=== PATIENT | male | born 1945 | race Caucasian/White ===

== ENCOUNTER 2023-12-21 11:27 | Inpatient (IN) | payer MEDICARE, BC, SELFPAY ==
[2023-12-21] VITALS (8 sets, daily range): BP systolic 101–178; BP diastolic 42–99; BMI 35.9
--- NOTE | 2023-12-21 08:39 | ED.GENMED ---
History of Present Illness
General
Chief Complaint: Weakness
Source: patient and ambulance crew
Exam Limitations: none
Time Seen by Provider: 12/21/23 08:28
Nursing documentation reviewed up to this point in time: agreed with
History of Present Illness
History of Present Illness:
78-year-old male presents emergency department complaining of a fall, weakness and diarrhea. Symptoms ongoing for 1 to 2 days. EMS states it was a controlled fall.
Past History
Past History
ED Past Medical History: Cancer (Colon cancer 1991), HTN, Hypercholesterolemia, NIDDM, Other (Rosacea, chronic leg edema, peripheral neuropathy) and Other (cellulitis LLE)
ED Past Surgical History: Bowel resection (Colon resection 1991) and Orthopedic (Right foot)
Social History
Tobacco: Non-smoker
Alcohol: None
Drug: None
Personal:
Living: with family
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
Family History
Family History: Hypertension
Review of Systems
Review of Systems
Allergies reviewed?: Yes
All Other Systems: Not applicable
Constitutional: Reports fever
EENT: Reports no symptoms
Respiratory: Reports cough
Cardiac: Reports no symptoms
ABD/GI: Reports diarrhea
: Reports no symptoms
Musculoskeletal: Reports no symptoms
Skin: Reports no symptoms
Neurological: Reports weakness
Endocrine: Reports no symptoms
Hematologic/Lymphatic: Reports no symptoms
Psychiatric: Reports no symptoms
Phy Exam
Physical Exam
Physical Exam:
Physical Exam
General: Appears uncomfortable, fever 103, sitting in soiled diaper
Neck: supple. no meningeal signs. normal posterior pharynx
Heart: s1/s2 regular rate and rhythm, no murmur. equal radial
pulses.
HEENT: Pupils equal round reactive to light, EOMI
Lungs: no acute respiratory distress. clear bilaterally, cough
Abdomen: normal bowel sounds. not tender. no CVAT
Neuro: alert and oriented. no focal neurological deficits cranial nerves II through XII intact
Skin: no rash
Psychiatric: well kept. interactive and cooperative
Extremities: no edema. no calf tenderness. negative homans. good distal pulses
Course
Orders/Labs/Results
Orders:
Orders
12/21/23 Breakfast
Clear Liquid
At Your Request: Full Participation
12/21/23 08:35
IV Insert/Care/Rem.- Treatment PRN
0.9% Sodium Chloride 1000 ml [Nss] 1,000 ml IV BOLUS
12/21/23 08:37
CT Head W/o Iv Contrast Urgent
Comment:
Reason For Exam: fall
CR Chest Portable - 1 View Urgent
Comment:
Reason For Exam: cough, fever
Reason Study Needs to be Portable: Unable to Transport
12/21/23 08:43
Acetaminophen [Tylenol] 1,000 mg PO NOW STA
12/21/23 08:44
Acetaminophen [Tylenol] 1,000 mg .ROUTE .STK-MED ONE
12/21/23 08:47
COVID-19 Antigen Urgent
Source: Nasal Swab
Complete Blood Count/With Diff Urgent
Comprehensive Metabolic Panel Urgent
Lactic Acid Q4H
Comment: CANCEL 2nd LACTIC ACID IF 1st LACTIC ACID IS LESS THAN 2
NT-proBNP Urgent
Comment: ADD ON
Blood Culture Q30M
ESPERANZA Source: Blood/Venous
Specimen Description:
Influenza A+B Rapid Molecular Urgent
ESPERANZA Source: Nasal Swab
Specimen Description:
12/21/23 09:32
Blood Culture Q30M
ESPERANZA Source: Blood/Venous
Specimen Description:
12/21/23 09:41
Electrocardiogram (*1) Stat
Reason for Study: Tachycardia
EKG- Treatment ONCE
12/21/23 09:43
Electrocardiogram (*1) Urgent
Reason for Study: Tachycardia
12/21/23 09:48
Azithromycin 500 mg/250 ml [Zithromax Infusion] 500 mg in 250 ml IV NOW
12/21/23 09:51
CefTRIAXone [Rocephin] 1,000 mg IV NOW STA
12/21/23 10:46
C difficile Antigen & Toxins Urgent
ESPERANZA Source: Feces/Stool
Specimen Description:
Date Specimen was Collected: 12/21/23
Time Specimen was Collected: 10:44
Norovirus by PCR Urgent
ESPERANZA Source: ST
Specimen Description:
Date Specimen was Collected: 12/21/23
Time Specimen was Collected: 10:44
Stool Culture Routine
ESPERANZA Source: Feces/Stool
Specimen Description:
Date Specimen was Collected: 12/21/23
Time Specimen was Collected: 10:44
12/21/23 11:12
Legionella Culture Routine
ESPERANZA Source: Sputum
Specimen Description:
Legionella Urinary Antigen Routine
ESPERANZA Source: Urine
Specimen Description:
Strep pneumoniae Antigen Routine
ESPERANZA Source: Urine
Specimen Description:
12/21/23 11:14
Add On- LAB Routine
Tests Added?: pro-bnp
Norovirus by PCR Routine
ESPERANZA Source: Feces/Stool
Specimen Description:
12/21/23 11:15
Admit/Transfer Patient As Directed
Co-Sign Provider:
Level of Care: Inpatient admission
Assign to:: Telemetry
Physician / Group: [email or web address]/medicine
Diagnosis: severe sepsis/diarrhea
Reason for Telemetry: Arrhythmia
Date to Stop Telemetry: 12/24/23
Time to Stop Telemetry: 11:00
Reason for Hospitalization: severe sepsis/diarrhea
Expected length of stay greater than two midnights?: Yes
ELOS- Estimated Length of Stay in days: 3
I certify the patient meets the requirements for IP care: Yes
12/21/23 11:20
Code Status As Directed
Resuscitation Status: Full Code
12/21/23 11:42
Procalcitonin Routine
PCT Algorithmm Indication: Respiratory
12/21/23 13:01
Lactic Acid Q4H
Comment: CANCEL 2nd LACTIC ACID IF 1st LACTIC ACID IS LESS THAN 2
12/21/23 14:50
Troponin I Q6H
Azithromycin 500 mg/250 ml [Zithromax Infusion] 500 mg in 250 ml IV Q24H
CefTRIAXone [Rocephin] 1,000 mg IV Q24H
Insulin Aspart High Resistance [Novolog Flexpen-High Resistance] See Protocol SC AC
Lactated Ringers [Lr] 1,000 ml IV 100 mls/hr
12/21/23 14:50
Add On- LAB Routine
Tests Added?: tsh with reflex free t4
Activity As Directed
Activity Level: As Tolerated
Vital Signs As Directed
Frequency: Per unit guidelines
Ot Eval And Treat Routine
Pt Eval And Treat Routine
Activity Level: As Tolerated
DX Deep Vein Thrombosis Video Routine
12/21/23 16:00
Heparin 5,000 units SC Q8
12/21/23 17:00
Aspirin Low Dose EC [Aspir Low (Enteric Coated)] 162 mg PO DAILY@1700
12/21/23 20:50
Troponin I Q6H
12/21/23 22:00
Atorvastatin [Lipitor] 10 mg PO HS
Gabapentin [Neurontin] 300 mg PO HS
Insulin Glargine Lantus [Lantus] 40 units Subcutaneous Insulin Syringe [Syringe-Insulin] 0 unit SC HS
12/22/23 02:50
Troponin I Q6H
12/22/23 06:00
Complete Blood Count/No Diff IN AM
Comprehensive Metabolic Panel IN AM
Magnesium IN AM
12/22/23 08:00
Gabapentin [Neurontin] 200 mg PO DAILY
12/22/23 08:50
Troponin I Q6H
12/23/23 06:00
Complete Blood Count/No Diff IN AM
Comprehensive Metabolic Panel IN AM
Magnesium IN AM
12/24/23 06:00
Complete Blood Count/No Diff IN AM
Comprehensive Metabolic Panel IN AM
Magnesium IN AM
12/24/23 11:00
DC Protocol for Telemetry ONCE
12/25/23 06:00
Complete Blood Count/No Diff IN AM
Comprehensive Metabolic Panel IN AM
Magnesium IN AM
12/26/23 06:00
Complete Blood Count/No Diff IN AM
Comprehensive Metabolic Panel IN AM
Magnesium IN AM
Abnormal Lab Results
12/21/23
08:47
WBC 11.9 H 10^3/uL
(4.8-10.8)
RDW 14.6 H %
(11.5-14.5)
Abs Immat Gran (auto) 0.1 H 10^3/uL
(0-0.05)
Absolute Neuts (auto) 11.1 H 10^3/uL
(1.4-6.5)
Absolute Lymphs (auto) 0.3 L 10^3/uL
(1.2-3.4)
Neutrophils % 93.2 H %
(42.2-75.2)
Lymphocytes % 2.4 L %
(20.5-51.1)
Sodium 132 L mmol/L
(135-145)
Carbon Dioxide 19 L mmol/L
(22-30)
BUN 29 H mg/dl
(9-20)
Glucose 204 H mg/dl
(70-99)
Lactic Acid 2.3 H mmol/L
(0.7-2.0)
Total Protein 6.2 L g/dl
(6.3-8.2)
12/21/23 08:47
12/21/23 08:47
Vital Signs
Initial and Last Documented VS:
Initial Vital Signs
Temp Pulse Resp BP Pulse Ox
103 F H 132 22 173/76 91
12/21/23 08:53 12/21/23 08:53 12/21/23 08:53 12/21/23 08:53 12/21/23 08:53
Last Documented Vital Signs
Temp Pulse Resp BP Pulse Ox
98.2 F 107 31 115/61 93
12/21/23 10:51 12/21/23 13:45 12/21/23 13:45 12/21/23 12:00 12/21/23 11:00
MDM/Problems Addressed
Differential Diagnosis Includes:
Sepsis, pneumonia, norovirus, hyponatremia
MDM/Problems Addressed:
78-year-old male with pneumonia, sepsis, norovirus, hyponatremia. Admit to hospitalist.
Chronic conditions affecting care: DM
Acute Exacerbation and/or Progression of Chronic Illness: DM
*Radiology
Radiology exam reviewed: preliminary read by ED provider (Chest x-ray shows left-sided pneumonia) and radiology read reviewed (CT head no acute findings)
*Pulse Oximetry
Patient hypoxic: no
*EKG
Interpreted by ED Provider?: Yes
EKG Intrepretation Date: 12/21/23
EKG Intrepretation Time: 09:46
Interpretation: abnormal
Comparison EKG: changes noted
Heart Rate: 117
Rate: tachycardiac
Rhythm: sinus tachycardia
Callands: normal axis
Interval: normal interval
QRS Pattern: left vent hypertrophy
Ischemia: no ischemia
*Cryptanalyst Interpretation
Rate: tachycardiac
Interpretation: abnormal
Heart Rate: 119
Rhythm: sinus tachycardia
*Critical Care Note
Total Time (30-74mins, 75-104mins- exclusive of procedures): 30
comment:
Critical care statement: A total of 30 minutes of critical care time was provided for this patient. This includes management of unstable vital signs, evaluation of the patient at bedside, reviewing the patient's pertinent medical records, discussion
with consultants, review of old EKGs and review of pertinent medical records. This time with separate from time utilized to perform the aforementioned documented procedures
Patient Management
Social determinants of health affecting care: Living situation
Discussion with other providers: Hospitalist
Escalation/DeEscalation of care consider admission/obs:
Admit to hospitalist
ED Attending Note
-
Portions of this chart may have been created with voice recognition software.� Occasional wrong word or��sound alike� substitutions may have occurred due to the inherent limitations of voice recognition software.
Discharge Plan
Departure
Patient Disposition: Admit
Date of Disposition: 12/21/23
Time of Disposition: 09:52
Admit to: IMU
Presentation/result/management discussed w/ accepting MD/DO: Hospitalist
Patient with high blood pressure during this ER visit?: Yes
Condition: Fair
Discharge Problem:
Pneumonia, Diarrhea, Weakness, Sepsis, Acute hyponatremia, Norovirus
Interventions
Interventions:
*Risk Screen - Suicide Last Done: 12/21/23 08:56
*General Assessment Last Done: 12/21/23 08:54
*Neglect/Abuse Screening Last Done: 12/21/23 08:56
ED- Fall Risk Assessment Last Done: 12/21/23 09:35
*ED COVID-19 Vaccine History Last Done: 12/21/23 08:54
*Nursing Disposition Last Done: 12/21/23 15:00
ED- Cardiac Assessment Last Done: 12/21/23 09:35
ED- Neurological Assessment Last Done: 12/21/23 09:35
ED- Pulmonary Assessment Last Done: 12/21/23 09:35
ED-Skin Assessment Last Done: 12/21/23 09:36
Discharge Date and Time
Discharge Date/Time: 12/21/23 14:30
[2023-12-21] MEDS: NSS 1000 IV (08:50)
[2023-12-21] MEDS: TYLENOL 1000 MG PO (08:51)
[2023-12-21 09:01] LABS: % Basophils 0.4 % (0-2); % Immature Granulocytes 0.5 % (0-0.5); % Lymphocytes 2.4 % (20.5-51.1); % Monocytes 2.5 % (1.7-9.3); % Neutrophils 93.2 % (42.2-75.2); Absolute Basophils 0.1 10^3/uL (0-0.2); Absolute Eosinophils 0.1 10^3/uL (0-0.7); Absolute Immature Granulocytes 0.1 10^3/uL (0-0.05); Absolute Lymphocytes 0.3 10^3/uL (1.2-3.4); Absolute Monocytes 0.3 10^3/uL (0.1-0.6); Absolute Neutrophils 11.1 10^3/uL (1.4-6.5); Hematocrit 45.7 % (39.0-52.0); Hemoglobin 15.3 g/dL (13.0-18.0); Mean Corp Hgb Conc. 33.5 g/dL (33.0-37.0); Mean Corpuscular Hgb 27.2 pg (27.0-31.0); Mean Corpuscular Volume 81.2 fL (80.0-94.0); Mean Platelet Volume 9.9 fL (7.4-10.4); Nucleated Red Blood Cells % 0 % (-); Platelet Count 133 10^3/uL (130-400); Red Blood Cell Count 5.63 10^6/uL (4.70-6.10); Red Cell Dist. Width 14.6 % (11.5-14.5); White Blood Cell Count 11.9 10^3/uL (4.8-10.8)
[2023-12-21 09:12] LABS: ALT (SGPT) 37 U/L (0-50); AST (SGOT) 48 U/L (17-59); Albumin 3.5 g/dl (3.5-5.0); Alkaline Phosphatase 81 U/L (38-126); Blood Urea Nitrogen 29 mg/dl (9-20); Calcium 8.5 mg/dl (8.4-10.2); Carbon Dioxide 19 mmol/L (22-30); Chloride 105 mmol/L (98-107); Glucose 204 mg/dl (70-99); Potassium 3.6 mmol/L (3.5-5.1); Sodium 132 mmol/L (135-145); Total Bilirubin 0.7 mg/dl (0.2-1.3); Total Protein 6.2 g/dl (6.3-8.2); eGFR > 60.00
[2023-12-21 09:13] LABS: Lactic Acid 2.3 mmol/L (0.7-2.0)
[2023-12-21 09:26] LABS: COVID-19 Antigen Negative (Negative)
[2023-12-21] MEDS: ZITHROMAX INFUSION 250 IV (10:28)
[2023-12-21] MEDS: ROCEPHIN 1000 MG IV (10:28)
[2023-12-21 12:18] LABS: NT-proBNP 749 pg/ml
[2023-12-21 13:01] LABS: Procalcitonin 5.84 ng/ml (0.0-0.25)
--- NOTE | 2023-12-21 13:06 | EDRN ---
Attending hospitalist Matty Mack notified of critical value procalcitonin
[2023-12-21 13:22] LABS: Lactic Acid 1.5 mmol/L (0.7-2.0)
--- NOTE | 2023-12-21 14:14 | HPS.HSE ---
Family Physician
-
Family Physician: Mukund Giles
Chief Complaint
-
fall, weakness and diarrhea.
History of Present Illness
78-year-old male with past medical history of colon cancer, hypertension, hyperlipidemia, diabetes, rosacea, chronic lymphedema, peripheral neuropathy, bowel resection now presenting for weakness with fall which is controlled. Of note has been
having diarrhea for the last 1 to 2 days. Noted to have temperature 103. White count 11.9, sodium 132, procalcitonin 5.84, norovirus positive, SARS-CoV-2, flu negative. Head CT unremarkable for acute pathology, x-ray showing mild interstitial
edema, possible pneumonic process, possible left pleural effusion.
Medical History
Past Medical History
Past Medical History: Reports Other (Cancer (Colon cancer 1991), HTN, Hypercholesterolemia, NIDDM, Other (Rosacea, chronic leg edema, peripheral neuropathy) and Other (cellulitis LLE))
Past Surgical History: Reports Other (Bowel resection (Colon resection 1991) and Orthopedic (Right foot))
Social History
Tobacco: Non-smoker
Alcohol: None
Drug: None
Personal:
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
Family History
Family History: Not pertinent
Allergies / Home Medications
Allergies reflects when Allergies were last updated in [email or web address].
Home Medications with original date entered in [email or web address]
Allergy/Medication List:
Allergies
Allergy/AdvReac Type Severity Reaction Status Date / Time
No Known Allergies Allergy Verified 05/09/19 18:56
Home Medications
atorvastatin 10 mg tablet 10 mg PO HS High cholesterol 02/02/15
calcium carbonate (Oyster Shell Calcium 500) 500 mg PO BID@0800,1700 Supplement 02/02/15
cholecalciferol (vitamin D3) 25 mcg (1,000 unit) tablet 1,000 units PO DAILY@1200 Supplement 02/02/15
lisinopril 5 mg tablet 5 mg PO DAILY Blood pressure 02/02/15
repaglinide 2 mg tablet 2 mg PO AC Diabetes 02/02/15
gabapentin 100 mg capsule 200 mg PO DAILY Pain 05/09/19
gabapentin 300 mg capsule 300 mg PO HS Pain 05/09/19
multivitamin with folic acid 400 mcg tablet (Tab-A-Blossom) 1 tab PO DAILY Supplement 05/09/19
omega 8-blm-fst-fish oil 300 mg-1,000 mg capsule (Fish Oil) 1 ea PO QPM Supplement 05/09/19
aspirin 81 mg tablet,delayed release 162 mg PO DAILY@1700 Blood clot prevention/tx 08/11/20
dulaglutide 0.75 mg/0.5 mL subcutaneous pen injector (Trulicity) 0.3 mg SC SA@2200 Diabetes 08/11/20
magnesium chloride 71.5 mg (magnesium chloride) tablet,delayed release (Slow-Mag) 71.5 mg PO DAILY Supplement ##0 08/11/20
bisacodyl 5 mg tablet,delayed release 10 mg (2 x 5 mg) PO DAILY Gastrointestinal issue ##0 08/15/20
docusate sodium 100 mg capsule 100 mg PO BIDPRN PRN constipation 12/21/23
insulin glargine U-300 conc 300 unit/mL (1.5 mL) subcutaneous pen (Toujeo SoloStar U-300 Insulin) 80 unit SQ HS Diabetes 12/21/23
Review of Systems
-
History Source: Patient
A 12 point ROS was completed and negative except as noted: Yes
Physical Exam
Vital Signs
Vital Signs
Temp Pulse Resp BP Pulse Ox
98.2 F 107 31 115/61 93
12/21/23 10:51 12/21/23 13:45 12/21/23 13:45 12/21/23 12:00 12/21/23 11:00
Physical Exam
General: Well Developed and Well Nourished
HEENT: NormoCephalic
Respiratory: Clear
Cardiac: S1/S2 and Other (cough)
GI: Non Tender
Musculoskeletal: No Clubbing
Skin: Warm
Neuro: Awake, Alert, Oriented and AO x 3
Hematologic/Lymphatic: No Lymphadenopathy
Psych: Calm
Laboratory Results
-
12/21/23 08:47
12/21/23 08:47
Laboratory Results
Lactic Acid 1.5 mmol/L (0.7-2.0) 12/21/23 13:01
Total Bilirubin 0.7 mg/dl (0.2-1.3) 12/21/23 08:47
AST 48 U/L (17-59) 12/21/23 08:47
ALT 37 U/L (0-50) 12/21/23 08:47
Alkaline Phosphatase 81 U/L (38-126) 12/21/23 08:47
Data Reviewed
-
Diagnostic Radiology: Image Personally Visualized and interpreted and Report Reviewed by me
CT Scan: Image Personally Visualized and interpreted and Report Reviewed by me
Lab Data: Labs Reviewed by me
Impression/Plan
-
IMPRESSION:
78-year-old male with past medical history of colon cancer, hypertension, hyperlipidemia, diabetes, rosacea, chronic lymphedema, peripheral neuropathy, bowel resection now presenting for weakness with fall which is controlled. Of note has been
having diarrhea for the last 1 to 2 days. Noted to be admitted for severe sepsis most likely secondary to norovirus, possible superimposed bacterial infection
PLAN:
#Severe sepsis
� I suspect secondary to norovirus although procalcitonin elevated and bacterial infection is high probability, ?pneumonia
� Continue IV fluids
� Follow-up blood cultures
� Norovirus positive
� Follow-up stool cultures
� Follow-up Legionella, strep for completeness sake
� Continue IV antibiotics, broaden if decompensates
� Monitor respiratory status with IV fluids
� Sputum culture if possible
� Hold antihypertensives
� Monitor respiratory status, chest imaging
� N.p.o. for now
-CT Chest/A/P w/ contrast
#Hyponatremia
�monitor with resuscitation
#Diabetes
� Half dose insulin
� High sliding scale
#Hyperlipidemia
� Continue statin, aspirin
#DVT ppx
-hsq
[2023-12-21] MEDS: LR 1000 IV (15:09)
[2023-12-21 15:10] LABS: Glucose - Point of Care 150 mg/dl (70-99)
[2023-12-21] MEDS: HEPARIN 5000 UNITS SC (15:10)
[2023-12-21] MEDS: OMNIPAQUE 50 ML PO (15:11)
[2023-12-21 16:02] LABS: Troponin I 0.122 ng/ml
[2023-12-21] MEDS: NOVOLOG FLEXPEN-HIGH RESISTANCE SC ×2 (16:21→17:30)
[2023-12-21] MEDS: ASPIR LOW (ENTERIC COATED) 162 MG PO (17:29)
[2023-12-21] MEDS: MORPHINE SULFATE 2 MG IV (17:30)
[2023-12-21 17:55] LABS: Glucose - Point of Care 123 mg/dl (70-99)
[2023-12-21 18:33] LABS: TSH Reflex To Free T4 1.32 uIU/ml (0.47-4.68)
[2023-12-21 21:24] LABS: Troponin I 0.259 ng/ml
[2023-12-21] MEDS: NEURONTIN 300 MG PO (23:00)
[2023-12-21] MEDS: LIPITOR 10 MG PO (23:00)
[2023-12-21 23:03] LABS: Glucose - Point of Care 137 mg/dl (70-99)
[2023-12-21] MEDS: LANTUS 0.400000000000000022 UNITS SC (23:04)
[2023-12-22] MEDS: HEPARIN SC (01:09)
[2023-12-22] MEDS: LR 1000 IV ×3 (02:14→23:13)
[2023-12-22 02:15] LABS: Hematocrit 38.7 % (39.0-52.0); Hemoglobin 13.1 g/dL (13.0-18.0); Mean Corp Hgb Conc. 33.9 g/dL (33.0-37.0); Mean Corpuscular Hgb 27.4 pg (27.0-31.0); Mean Platelet Volume 9.9 fL (7.4-10.4); Platelet Count 144 10^3/uL (130-400); Red Blood Cell Count 4.78 10^6/uL (4.70-6.10); Red Cell Dist. Width 14.8 % (11.5-14.5); White Blood Cell Count 20.6 10^3/uL (4.8-10.8)
[2023-12-22 02:32] LABS: ALT (SGPT) 132 U/L (0-50); AST (SGOT) 152 U/L (17-59); Albumin 2.9 g/dl (3.5-5.0); Alkaline Phosphatase 63 U/L (38-126); Blood Urea Nitrogen 34 mg/dl (9-20); Calcium 7.7 mg/dl (8.4-10.2); Carbon Dioxide 23 mmol/L (22-30); Chloride 101 mmol/L (98-107); Estimated Creatinine Clearance 79 ml/min; Glucose 113 mg/dl (70-99); Magnesium 1.7 mg/dl (1.6-2.3); Potassium 3.4 mmol/L (3.5-5.1); Sodium 133 mmol/L (135-145); Total Bilirubin 0.6 mg/dl (0.2-1.3); Total Protein 5.4 g/dl (6.3-8.2); eGFR > 60.00
[2023-12-22 02:41] LABS: Troponin I 0.332 ng/ml
[2023-12-22 03:20] VITALS: BP 133/51
--- NOTE | 2023-12-22 05:46 | W.PN.UPDATE ---
Update Note
Progress Note Update
Troponins trending up 0.332 NSTEMI likely demand ischemia from illness. Cardiology consult placed. Known to [facility].
[2023-12-22 07:16] VITALS: BP 117/57
[2023-12-22 08:09] LABS: Glucose - Point of Care 114 mg/dl (70-99)
--- NOTE | 2023-12-22 08:30 | PTCARENOTE ---
pt troponin levels this am 0.375. denies chest pain and sob. no s/s of distress noted at this time. Cardio consulted.
--- NOTE | 2023-12-22 09:09 | CON.CAR ---
Addendum entered and electronically signed by Andres Tyson MD 12/22/23 11:03:
I saw and examined the patient.
The CHIEF TECHNICAL OFFICER or PA's note was reviewed and I agree with the note.
Comment: General: Well developed, well nourished in NAD.
Neck: Supple, no JVD, HJR, carotids +2 B/L, no bruits bilaterally.
Heart: Non displaced PMI, RRR, no murmurs, No S3, S4, no rubs.
Lungs: Clear to auscultation bilaterally, no wheeze, rhonchi, rubs bilaterally,
normal expiratory phase.
Abdomen: Normal bowel sounds, soft, non-tender, non-distended.
Extremities: No clubbing, cyanosis or edema bilaterally.
Neuro: Grossly nonfocal, awake, alert and oriented x3.
Andres has a history of hypertension, hyperlipidemia, diabetes, neuropathy, colon cancer status post resection. He presented with diarrhea. He was admitted with norovirus. There was no chest pain or shortness of breath. Troponin was ordered for
unclear reasons and was abnormal and cardiology is consulted
Troponin elevation likely non-[place] myocardial injury. Will check echocardiogram. Will add low-dose beta-luna given episodes of PAT on telemetry. Will consider outpatient stress testing. Of note patient is relatively sedentary at baseline..
Original Note:
Consultation
Consultation Request
Date/Time Consultation Requested: 12/22/2023 at 0540
Date/Time Consultation Performed: 12/22/2023 at 0845
Requesting Provider: Dr. Mack
Performing Provider: Dr. Tyson
Reason for Consultation: Elevated troponin
Medical History
-
History of Present Illness:
HPI: Andres is a 78 year old male with PMH of hypertension, hyperlipidemia, DM2, peripheral neuropathy, and colon cancer s/p resection who presented to [facility] for evaluation after episode of weakness and fall. He had been having diarrhea for about 2
days prior to arrival which he attributed to a seasoning he used on shrimp. He continued to feel poorly and then had episode of weakness and he fell to the ground. On arrival to ER, he was noted to be febrile with temperature of 103F. He was noted
to have leukocytosis w/ elevated procalcitonin. Head CT unremarkable, CT of chest, abdomen, and pelvis was without evidence of pneumonia, however did note a 12cm area of nondistended stomach/collapsed colon. Testing for flu and covid was negative,
however he did test positive for norovirus. He was admitted with severe sepsis and started on IVFs with IV abx for possible superimposed bacterial infection. Cardiology consulted as patient had troponin checked and returned elevated, trending
upwards to 0.332 thus far. Patient is chest pain free and EKG is without any acute ischemic changes. He was seen by cardiology once in 2018 and has not followed up since.
PMH:
Hypertension
Hyperlipidemia
DM2
Peripheral neuropathy
h/o colon cancer with prior colon resection
Past Medical History
Past Medical History: Other (In HPI)
Past Surgical History: Orthopedic and Other (Colon resection)
Social History
Tobacco: Non-Smoker
Alcohol: None
Drug: None
Personal:
Living: With Family
Employment: Retired
Family History
Family History: Cancer, Diabetes and Hypertension
Allergies / Home Medications
Allergy/AdvReac Type Severity Reaction Status Date / Time
No Known Allergies Allergy Verified 05/09/19 18:56
�Medication �Instructions �Recorded �Confirmed �Type
atorvastatin 10 mg tablet 10 mg PO HS High cholesterol 02/02/15 12/21/23 History
calcium carbonate (Oyster Shell 500 mg PO BID@0800,1700 Supplement 02/02/15 12/21/23 History
Calcium 500)
cholecalciferol (vitamin D3) 25 1,000 units PO DAILY@1200 02/02/15 12/21/23 History
mcg (1,000 unit) tablet Supplement
lisinopril 5 mg tablet 5 mg PO DAILY Blood pressure 02/02/15 12/21/23 History
repaglinide 2 mg tablet 2 mg PO AC Diabetes 02/02/15 12/21/23 History
gabapentin 100 mg capsule 200 mg PO DAILY Pain 05/09/19 12/21/23 History
gabapentin 300 mg capsule 300 mg PO HS Pain 05/09/19 12/21/23 History
multivitamin with folic acid 400 1 tab PO DAILY Supplement 05/09/19 12/21/23 History
mcg tablet (Tab-A-Blossom)
omega 7-pmf-mbt-fish oil 300 1 ea PO QPM Supplement 05/09/19 12/21/23 History
mg-1,000 mg capsule (Fish Oil)
aspirin 81 mg tablet,delayed 162 mg PO DAILY@1700 Blood clot 08/11/20 12/21/23 History
release prevention/tx
dulaglutide 0.75 mg/0.5 mL 0.3 mg SC SA@2200 Diabetes 08/11/20 12/21/23 History
subcutaneous pen injector
(Trulicity)
magnesium chloride 71.5 mg 71.5 mg PO DAILY Supplement ##0 08/11/20 12/21/23 History
(magnesium chloride)
tablet,delayed release (Slow-Mag)
bisacodyl 5 mg tablet,delayed 10 mg (2 x 5 mg) PO DAILY 08/15/20 12/21/23 Rx
release Gastrointestinal issue ##0
docusate sodium 100 mg capsule 100 mg PO BIDPRN PRN constipation 12/21/23 12/21/23 History
insulin glargine U-300 conc 300 80 unit SQ HS Diabetes 12/21/23 12/21/23 History
unit/mL (1.5 mL) subcutaneous pen
(Toujeo SoloStar U-300 Insulin)
Review of Systems
-
History Source: Patient
All other systems: Negative unless noted
Physical Exam
Vital Signs
Temp Pulse Resp BP Pulse Ox
98.1 F 77 16 117/57 98
12/22/23 07:16 12/22/23 07:16 12/22/23 07:16 12/22/23 07:16 12/22/23 07:16
Lab Results
12/22/23 02:07
12/22/23 02:07
Troponin I 0.332 ng/ml H* D 12/22/23 02:07
Spl-Y-Gxiyntvlhns Pept 749 pg/ml 12/21/23 08:47
Physical Exam
General: Well Developed, Well Nourished and No Apparent Distress
HEENT: Normocephalic and Moist Mucous Membranes
Respiratory: Non Labored Respirations
Cardiac: Irregular Rhythm
Musculoskeletal: No Clubbing, No Cyanosis and Edema
Skin: Dry
Neuro: Nonfocal/Grossly Intact
Psych: Calm
Impression / Plan
-
PCP: Dr. Giles
Technical Sme: Previously saw Dr. IVETTE Harrison in 2018
Impression:
Presented with weakness, fall
Sepsis due to norovirus
Elevated troponin
Atrial tachycardia
Elevated LFTs
Hyponatremia
Hypokalemia
Hypertension
Hyperlipidemia
DM2
Peripheral neuropathy
h/o colon cancer with prior colon resection
Echo 07/24/2018: EF 55-60%, RV appears dilated and hypokinetic, mild MR, trace AI, trace TR, mild dilation of aortic root 4.0 cm at sinus of valsalva
Echo 12/22/2023: Study pending
Plan:
-Presented with weakness, fall, and diarrhea. Admitted with sepsis due to norovirus. Continue abx, IVFs per primary service.
-Elevated troponin noted, trending upwards to 0.375. Suspect nonischemic myocardial injury in the setting of severe sepsis and atrial tachycardia. Continue to trend to peak.
-Will check echo. Echo 06/2018 with preserved EF.
-EKG reviewed and sinus tachycardia with PACs. No acute ischemic changes noted.
-On review of telemetry, patient remains in sinus tachycardia with ectopy. Also brief runs of atrial tachycardia seen. Patient asymptomatic.
-Will start low dose lopressor 12.5mg BID.
-Hypokalemia noted with K 3.4. Agree w/ supplementation. Mag 1.7 and will replete as well.
-TSH wnl.
-Consider eventual ischemic evaluation, likely as OP.
-Elevated LFTs noted. Hold lipitor for now. Will resume once LFTs improve.
-Continue aspirin.
HPI: Andres is a 78 year old male with PMH of hypertension, hyperlipidemia, DM2, peripheral neuropathy, and colon cancer s/p resection who presented to [facility] for evaluation after episode of weakness and fall. He had been having diarrhea for about 2
days prior to arrival which he attributed to a seasoning he used on shrimp. He continued to feel poorly and then had episode of weakness and he fell to the ground. On arrival to ER, he was noted to be febrile with temperature of 103F. He was noted
to have leukocytosis w/ elevated procalcitonin. Head CT unremarkable, CT of chest, abdomen, and pelvis was without evidence of pneumonia, however did note a 12cm area of nondistended stomach/collapsed colon. Testing for flu and covid was negative,
however he did test positive for norovirus. He was admitted with severe sepsis and started on IVFs with IV abx for possible superimposed bacterial infection. Cardiology consulted as patient had troponin checked and returned elevated, trending
upwards to 0.332 thus far. Patient is chest pain free and EKG is without any acute ischemic changes. He was seen by cardiology once in 2018 and has not followed up since.
Data Reviewed
-
EKG: Tracing Personally Visualized and interpreted
Radiology: Report Reviewed by me
CT Scan: Report Reviewed by me
Labs: Labs Reviewed by me
Old Records: Reviewed
[2023-12-22] MEDS: NOVOLOG FLEXPEN-HIGH RESISTANCE SC (09:15)
[2023-12-22] MEDS: HEPARIN 5000 UNITS SC ×3 (09:15→23:13)
[2023-12-22] MEDS: NEURONTIN 200 MG PO (09:15)
[2023-12-22] MEDS: DESENEX/MITRAZOL/ZEASORB 1 APPLIC TOPICAL ×2 (09:15→20:50)
[2023-12-22] MEDS: ZITHROMAX INFUSION 250 IV (09:17)
[2023-12-22 09:48] LABS: Troponin I 0.375 ng/ml
[2023-12-22] MEDS: KCL ELIXIR 40 MEQ PO (09:48)
[2023-12-22] MEDS: FLUSH (NSS) 1 FLUSH IV ×2 (10:38→10:50)
[2023-12-22] MEDS: ROCEPHIN 1000 MG IV (10:39)
[2023-12-22] MEDS: STERILE WATER FOR INJECTION 10 ML IV (10:39)
[2023-12-22] MEDS: MAGNESIUM OXIDE 500 MG PO (11:04)
[2023-12-22 11:15] VITALS: BP 155/70
--- NOTE | 2023-12-22 11:33 | PTCARENOTE ---
received verbal order from dr. zuniga to change diet from clear liq to full liq. order in place. no s/s of distress noted.
--- NOTE | 2023-12-22 11:44 | CARDSERVLU ---
Echocardiogram with [facility] completed after protocol screening completed. Allergies verified.
Patent IV site: __RT AC___
IV site flushed with 0.9% NaCl pre and post administration.
Diluted bolus method utilized to enhance visualization of ventricular gaona.
Total volume given: ___2.0_ mL
Patient tolerated all procedures well without complications.
[2023-12-22 12:11] LABS: Glucose - Point of Care 142 mg/dl (70-99)
[2023-12-22] MEDS: LOPRESSOR 12.5 MG PO ×2 (12:19→20:49)
[2023-12-22] MEDS: NOVOLOG FLEXPEN-HIGH RESISTANCE 1 UNITS SC ×2 (12:22→17:10)
--- NOTE | 2023-12-22 13:09 | CM ---
Reviewed the chart notes and spoke with the patient and his spouse at the bedside. The patient resides with his spouse in a two story home with one step to enter. The patient reports only DME is a cane. The patient reports no VN, but has been to
[facility] in the past. The patient confirmed his pharmacy of choice is the [facility]. CM continues to be available to patient/family and is monitoring medical plan for needs at discharge.
Plan: Discharge plans will depend on the patient's progress.
--- NOTE | 2023-12-22 13:36 | W.PN.HOSP.TC ---
Today's Communication/Plan
-
iv abx
f/u cultures
incentive jfef
adv to full liquid diet
Assessment / Plan
Assessment / Plan
General: Well Developed, Well Nourished and No Apparent Distress
HEENT: Normocephalic and Moist Mucous Membranes
Respiratory: Non Labored Respirations
Cardiac: Irregular Rhythm
Musculoskeletal: No Clubbing, No Cyanosis and Edema
Skin: Dry
Neuro: Nonfocal/Grossly Intact
Psych: Calm
78-year-old male with past medical history of colon cancer, hypertension, hyperlipidemia, diabetes, rosacea, chronic lymphedema, peripheral neuropathy, bowel resection now presenting for weakness with fall which is controlled. Of note has been
having diarrhea for the last 1 to 2 days. Noted to be admitted for severe sepsis most likely secondary to norovirus, possible superimposed bacterial infection
PLAN:
#Severe sepsis
� I suspect secondary to norovirus although procalcitonin elevated and bacterial infection is high probability
-no evidence of PNA on CT
-Atelectasis present
� Continue IV fluids
� Follow-up blood cultures
� Norovirus positive
� Follow-up stool cultures
� Follow-up Legionella, strep for completeness sake
� Continue IV antibiotics, broaden if decompensates
� Monitor respiratory status with IV fluids
� Hold antihypertensives
� Monitor respiratory status, chest imaging
� Adv to full liquids and monitor
#Acute v ?Chronic Hypoxia respiratory failure
-i suspect 2/2 to atelectasis as well as component of OHS/STACY
-needs PSG outpatient
#non-[place] myocardial injury
-2/2 to sepsis
-f/u echo
-possible outpatient stress test
#Hyponatremia
�monitor with resuscitation
#Hypokalemia
-monitor and replete
#Diabetes
� Half dose insulin
� High sliding scale
#Hyperlipidemia
� Continue statin, aspirin
#DVT ppx
-hsq
Anticipated Discharge: 24 - 48 hours
Subjective/Interval History
-
Date of Service: December 22, 2023
symptoms improved although diarrhea still present
Objective Data
-
Labs:
Laboratory Results
12/22/23
02:07
WBC 20.6 H
Hgb 13.1
Hct 38.7 L
Plt Count 144
Sodium 133 L
Potassium 3.4 L
Chloride 101
Carbon Dioxide 23
BUN 34 H
Creatinine 1.1
Glucose 113 H
Calcium 7.7 L
Total Bilirubin 0.6
AST 152 H
ALT 132 H
Alkaline Phosphatase 63
Vital Signs:
Vital Signs
Temp Pulse Resp BP Pulse Ox
98.0 F 77 16 155/70 96
12/22/23 11:15 12/22/23 12:19 12/22/23 11:15 12/22/23 12:19 12/22/23 11:15
I&O
12/21/23 12/22/23 12/23/23
06:59 06:59 06:59
Intake Total 480 / 480
Balance 480 / 480
Review of Systems
-
History Source: Patient
All other systems: Not reviewed unless documented
Data Reviewed
-
Diagnostic Radiology: Image personally visualized and interpreted and Report Reviewed by me
CT Scan: Image personally visualized and interpreted and Report Reviewed by me
Labs: Labs Reviewed by me
[2023-12-22 15:14] VITALS: BP 127/61
[2023-12-22 16:48] LABS: Glucose - Point of Care 107 mg/dl (70-99)
[2023-12-22 16:50] LABS: Troponin I 0.288 ng/ml
[2023-12-22] MEDS: ASPIR LOW (ENTERIC COATED) 162 MG PO (17:11)
[2023-12-22 19:41] VITALS: BP 112/45
[2023-12-22 21:25] LABS: Glucose - Point of Care 112 mg/dl (70-99)
[2023-12-22] MEDS: LANTUS 0.400000000000000022 UNITS SC (21:35)
[2023-12-22] MEDS: NEURONTIN 300 MG PO (21:36)
[2023-12-22 22:39] LABS: Troponin I 0.247 ng/ml
[2023-12-22 23:06] VITALS: BP 111/46
[2023-12-23 03:33] VITALS: BP 107/56
--- NOTE | 2023-12-23 04:32 | PTCARENOTE ---
Addendum entered by Yumiko Reeves RN 12/23/23 05:38:
Patient HR increased to 140s for a few seconds and then returned to high 40s/low 50s. Patient is still resting comfortably and reports no symptoms. [employer] notified. No new orders at this time.
Original Note:
Patient going wendy and remaining in 40s/50s for several minutes. Will go up to 60s when woken up. Patient reports no symptoms and resting/sleeping comfortably in bed. Notified [employer]. No new orders at this time.
[2023-12-23 06:55] LABS: Glucose - Point of Care 79 mg/dl (70-99)
[2023-12-23 07:25] VITALS: BP 132/61
--- NOTE | 2023-12-23 08:16 | W.PN.CARDCBS ---
Today's Communication / Plan
-
Elevated troponin may be related to nonMI troponin. Echo noted. Not clear that his drop in EF is acute and may be a chronic finding although this is unclear. Pt is recommended an ischemic eval inpt vs outpt. As he remains asymptomatic from a cardiac
standpoint, would lean toward outpt ischemic eval pending his clinical course.
Monitor EKGs and tele.
Resume ACEI at lower dose of 2.5 mg daily.
Cont ASA
Monitor wts and Is and Os closely. His dry wt is unknown. He presented with diarrhea so will hold on diuresis for now.
He has tachy wendy with bradycardia since starting Lopressor. Cont low dose lopressor for now if HR can tolerate. Hold parameters for lopressor placed.
Cont abx and supportive care of sepsis as per primary service.
Repleat lytes as needed.
Hold Lipitor with elevated LFTs. Trend elevated LFTs.
He will need outpt cardiac follow up.
Impression / Plan
-
.
PCP: Dr. Giles
Tax Economist: Previously saw Dr. IVETTE Harrison in 2018
Impression:
Presented with weakness, fall
Sepsis due to norovirus
Elevated troponin, peak 0.37
New CM with EF reduced to 40-45%
Chronic LE edema, lymphedema with possible chronic diastolic HF
Atrial tachycardia
Elevated LFTs
Hx colon cancer with prior colon resection
Hyponatremia
Hypokalemia
Hypertension
Hyperlipidemia
DM2
Peripheral neuropathy
Echo 07/24/2018: EF 55-60%, RV appears dilated and hypokinetic, mild MR, trace AI, trace TR, mild dilation of aortic root 4.0 cm at sinus of valsalva
Echo 12/22/2023: Technically difficult study. mod LVH, mild global hypokinesis with marked paradoxical septal motion. EF 40-45%, no significant valve disease,
Compared to previous echo 07/24/2018, the LVEF appears to have decreased from 55% to 40-45%
Plan:
-Presented with weakness, fall, and diarrhea. Admitted with sepsis due to norovirus. Trop peak 0.37
Elevated troponin may be related to nonMI troponin. Echo noted. Not clear that his drop in EF is acute and may be a chronic finding although this is unclear. Pt is recommended an ischemic eval inpt vs outpt. As he remains asymptomatic from a cardiac
standpoint, would lean toward outpt ischemic eval pending his clinical course.
Monitor EKGs and tele.
Resume ACEI at lower dose of 2.5 mg daily.
Cont ASA
Monitor wts and Is and Os closely. His dry wt is unknown. He presented with diarrhea so will hold on diuresis for now.
He has tachy wendy with bradycardia since starting Lopressor. Cont low dose lopressor for now if HR can tolerate. Hold parameters for lopressor placed.
Cont abx and supportive care of sepsis as per primary service.
Repleat lytes as needed.
Hold Lipitor with elevated LFTs. Trend elevated LFTs.
He will need outpt cardiac follow up.
Discussed with nursing.
HPI: Andres is a 78 year old male with PMH of hypertension, hyperlipidemia, DM2, peripheral neuropathy, and colon cancer s/p resection who presented to [facility] for evaluation after episode of weakness and fall. He had been having diarrhea for about 2
days prior to arrival which he attributed to a seasoning he used on shrimp. He continued to feel poorly and then had episode of weakness and he fell to the ground. On arrival to ER, he was noted to be febrile with temperature of 103F. He was noted
to have leukocytosis w/ elevated procalcitonin. Head CT unremarkable, CT of chest, abdomen, and pelvis was without evidence of pneumonia, however did note a 12cm area of nondistended stomach/collapsed colon. Testing for flu and covid was negative,
however he did test positive for norovirus. He was admitted with severe sepsis and started on IVFs with IV abx for possible superimposed bacterial infection. Cardiology consulted as patient had troponin checked and returned elevated, trending
upwards to 0.332 thus far. Patient is chest pain free and EKG is without any acute ischemic changes. He was seen by cardiology once in 2018 and has not followed up since.
Progress Note - Tax Economist
Subjective
Date of Service: December 23, 2023
Pt seen and examined. No complaints. No chest pain or shortness of breath.
Objective
Labs:
Labs
Hgb 13.1 g/dL (13.0-18.0) 12/22/23 02:07
Hct 38.7 % (39.0-52.0) L 12/22/23 02:07
Plt Count 144 10^3/uL (130-400) 12/22/23 02:07
Sodium 133 mmol/L (135-145) L 12/22/23 02:07
Potassium 3.4 mmol/L (3.5-5.1) L 12/22/23 02:07
BUN 34 mg/dl (9-20) H 12/22/23 02:07
Creatinine 1.1 mg/dL (0.7-1.3) 12/22/23 02:07
Glucose 113 mg/dl (70-99) H 12/22/23 02:07
Troponins
12/21/23 12/21/23 12/22/23
15:16 20:56 02:07
Troponin I 0.122 H* 0.259 H* D 0.332 H* D
12/22/23 12/22/23 12/22/23
09:13 16:15 22:08
Troponin I 0.375 H* 0.288 H* 0.247 H*
Vital Signs and I&O:
Vital Signs
Temp Pulse Resp BP Pulse Ox
97.6 F 58 18 107/56 98
12/23/23 03:33 12/23/23 03:33 12/23/23 03:33 12/23/23 03:33 12/23/23 03:33
Vital Signs
Temp Pulse Resp BP Pulse Ox
97.6 F 58 18 107/56 98
12/23/23 03:33 12/23/23 03:33 12/23/23 03:33 12/23/23 03:33 12/23/23 03:33
Intake & Output
12/21/23 12/22/23 12/23/23 12/24/23
06:59 06:59 06:59 06:59
Intake Total 480 / 480 1200 / 1200
Balance 480 / 480 1200 / 1200
Physical Exam
Physical Exam
General: No acute distress, AAOX3
Neck: Negative JVD
Heart: Regular, Negative S3 positive S1/S2, Negative S4, No murmur
Lungs: CTA b/l, negative wheezes/rales/rhonchi
Abd: Morbid obesity. Positive BS, NT/ND, neg rebound/rigidity/guarding
Ext: Negative cyanosis/clubbing. +2 b/l edema
Skin: venous stasis skin changes
Neuro: nonfocal
[2023-12-23] MEDS: NOVOLOG FLEXPEN-HIGH RESISTANCE SC (08:57)
[2023-12-23 09:06] LABS: Hematocrit 40.6 % (39.0-52.0); Hemoglobin 13.3 g/dL (13.0-18.0); Mean Corp Hgb Conc. 32.8 g/dL (33.0-37.0); Mean Corpuscular Volume 82.5 fL (80.0-94.0); Mean Platelet Volume 10.7 fL (7.4-10.4); Platelet Count 150 10^3/uL (130-400); Red Blood Cell Count 4.92 10^6/uL (4.70-6.10); Red Cell Dist. Width 14.8 % (11.5-14.5); White Blood Cell Count 14.3 10^3/uL (4.8-10.8)
[2023-12-23] MEDS: NEURONTIN 200 MG PO (09:09)
[2023-12-23] MEDS: STERILE WATER FOR INJECTION 10 ML IV (09:10)
[2023-12-23] MEDS: ROCEPHIN 1000 MG IV (09:10)
[2023-12-23] MEDS: HEPARIN 5000 UNITS SC ×3 (09:10→23:04)
[2023-12-23] MEDS: LR 1000 IV (09:11)
[2023-12-23] MEDS: DESENEX/MITRAZOL/ZEASORB 1 APPLIC TOPICAL ×2 (09:11→21:02)
[2023-12-23] MEDS: LOPRESSOR PO ×2 (09:13→21:01)
[2023-12-23] MEDS: ZESTRIL 2.5 MG PO (09:13)
[2023-12-23 09:24] LABS: ALT (SGPT) 103 U/L (0-50); AST (SGOT) 67 U/L (17-59); Albumin 2.9 g/dl (3.5-5.0); Alkaline Phosphatase 79 U/L (38-126); Blood Urea Nitrogen 24 mg/dl (9-20); Calcium 7.9 mg/dl (8.4-10.2); Carbon Dioxide 26 mmol/L (22-30); Chloride 98 mmol/L (98-107); Estimated Creatinine Clearance 109 ml/min; Glucose 90 mg/dl (70-99); Magnesium 2.4 mg/dl (1.6-2.3); Sodium 130 mmol/L (135-145); Total Bilirubin 0.6 mg/dl (0.2-1.3); Total Protein 5.4 g/dl (6.3-8.2); eGFR > 60.00
[2023-12-23] MEDS: FLUSH (NSS) 10 FLUSH IV (11:32)
[2023-12-23] MEDS: FLUSH (NSS) IV (11:33)
[2023-12-23 12:19] LABS: Glucose - Point of Care 97 mg/dl (70-99)
--- NOTE | 2023-12-23 13:23 | W.PN.HOSP.TC ---
Today's Communication/Plan
-
adv to LRD
appreciate cards recs - start back ACEI
BB
Monitor resp status with cessation of fluids
Assessment / Plan
Assessment / Plan
General: Well Developed, Well Nourished and No Apparent Distress
HEENT: Normocephalic and Moist Mucous Membranes
Respiratory: Non Labored Respirations
Cardiac: Irregular Rhythm
Musculoskeletal: No Clubbing, No Cyanosis and Edema
Skin: Dry
Neuro: Nonfocal/Grossly Intact
Psych: Calm
78-year-old male with past medical history of colon cancer, hypertension, hyperlipidemia, diabetes, rosacea, chronic lymphedema, peripheral neuropathy, bowel resection now presenting for weakness with fall which is controlled. Of note has been
having diarrhea for the last 1 to 2 days. Noted to be admitted for severe sepsis most likely secondary to norovirus, possible superimposed bacterial infection
PLAN:
#Severe sepsis
� I suspect secondary to norovirus although procalcitonin elevated and bacterial infection is high probability
-no evidence of PNA on CT
-Atelectasis present
� Stop fluids, tolerating diet
� Advance to low residue diet today
� Follow-up blood/stool cultures�no growth to date
� Norovirus positive
� DC abx and monitor - no evidence of bacterial infection at this time
� Monitor respiratory status with IV fluids
#Acute v ?Chronic Hypoxia respiratory failure
-i suspect 2/2 to atelectasis as well as component of OHS/STACY although may also be related to chf
-needs PSG outpatient
-resolved
#non-[place] myocardial injury
-2/2 to sepsis
-possible outpatient stress test
#New Onset HFrEF and HFpEF
-Mild global hypokinesis with marked paradoxical septal motion. LV
ejection fraction is 40-45%
-Cardiology consulted
-ACEI, BB
#Hyponatremia
�monitor with resuscitation
-stop fluids and monitor
#Hypokalemia
-monitor and replete
#Diabetes
� Half dose insulin
� High sliding scale
#Hyperlipidemia
� Continue statin, aspirin
Transaminitis
� Possibly secondary to acute infection
� Continue to monitor with resuscitation
#DVT ppx
-hsq
Anticipated Discharge: 24 - 48 hours
Subjective/Interval History
-
Date of Service: December 23, 2023
Feeling better, diarrhea improved
Objective Data
-
Labs:
Laboratory Results
12/23/23
08:35
WBC 14.3 H
Hgb 13.3
Hct 40.6
Plt Count 150
Sodium 130 L
Potassium 4.0
Chloride 98
Carbon Dioxide 26
BUN 24 H
Creatinine 0.8
Glucose 90
Calcium 7.9 L
Total Bilirubin 0.6
AST 67 H
ALT 103 H
Alkaline Phosphatase 79
Vital Signs:
Vital Signs
Temp Pulse Resp BP Pulse Ox
97.7 F 54 22 132/61 98
12/23/23 07:25 12/23/23 09:13 12/23/23 07:25 12/23/23 09:13 12/23/23 03:33
I&O
12/22/23 12/23/23 12/24/23
06:59 06:59 06:59
Intake Total 480 / 480 1200 / 1200
Balance 480 / 480 1200 / 1200
Review of Systems
-
History Source: Patient
All other systems: Not reviewed unless documented
Data Reviewed
-
Diagnostic Radiology: Image personally visualized and interpreted and Report Reviewed by me
CT Scan: Image personally visualized and interpreted and Report Reviewed by me
Labs: Labs Reviewed by me
[2023-12-23] MEDS: NOVOLOG FLEXPEN-HIGH RESISTANCE 1 UNITS SC ×2 (13:50→17:34)
[2023-12-23 15:07] VITALS: BP 149/61
[2023-12-23 16:54] LABS: Glucose - Point of Care 138 mg/dl (70-99)
[2023-12-23] MEDS: ASPIR LOW (ENTERIC COATED) 162 MG PO (17:34)
[2023-12-23 19:15] VITALS: BP 140/50
[2023-12-23 21:56] LABS: Glucose - Point of Care 120 mg/dl (70-99)
[2023-12-23] MEDS: LANTUS 0.400000000000000022 UNITS SC (23:04)
[2023-12-23] MEDS: NEURONTIN 300 MG PO (23:04)
[2023-12-23 23:57] VITALS: BP 146/60
[2023-12-24 03:44] VITALS: BP 115/46
[2023-12-24 05:28] VITALS: BMI 36.8
[2023-12-24 07:10] VITALS: BP 150/65
[2023-12-24 07:36] LABS: Glucose - Point of Care 63 mg/dl (70-99)
--- NOTE | 2023-12-24 08:05 | W.PN.CARDCBS ---
Today's Communication / Plan
-
Elevated troponin likely nonMI troponin, continue medical therapy. Echo showed drop in EF compared to 2018. Not clear that his drop in EF is acute and may be a chronic finding. Pt is recommended an ischemic eval as outpt once recovered from
infection.
Cont to monitor EKGs and tele.
Cont ACEI and Lopressor for CM.
Cont ASA
Cont to monitor wts and Is and Os closely. His dry wt is unknown. He presented with diarrhea and received IVF so will hold on diuresis for now.
He has tachy wendy with bradycardia since starting Lopressor. Cont low dose lopressor for now if HR can tolerate.
Check nocturnal pulse ox as he may have untreated STACY which could contribute to nocturnal bradycardia.
Cont supportive care of sepsis as per primary service.
Cont to hold Lipitor with elevated LFTs which are improving. Cont to trend elevated LFTs.
He will need outpt cardiac follow up as he has been noncompliant and loss to follow up.
Impression / Plan
-
.
PCP: Dr. Giles
Basketball Assembler: Previously saw Dr. IVETTE Harrison in 2018
Impression:
Presented with weakness, fall
Sepsis due to norovirus
Elevated troponin, peak 0.37
New CM with EF reduced to 40-45%
Chronic LE edema, lymphedema with possible chronic diastolic HF
Atrial tachycardia
Elevated LFTs
Hx colon cancer with prior colon resection
Hyponatremia
Hypokalemia
Hypertension
Hyperlipidemia
DM2
Peripheral neuropathy
Echo 07/24/2018: EF 55-60%, RV appears dilated and hypokinetic, mild MR, trace AI, trace TR, mild dilation of aortic root 4.0 cm at sinus of valsalva
Echo 12/22/2023: Technically difficult study. mod LVH, mild global hypokinesis with marked paradoxical septal motion. EF 40-45%, no significant valve disease,
Compared to previous echo 07/24/2018, the LVEF appears to have decreased from 55% to 40-45%
Plan:
-Presented with weakness, fall, and diarrhea. Admitted with sepsis due to norovirus. Trop peak 0.37
Elevated troponin likely nonMI troponin, continue medical therapy. Echo showed drop in EF compared to 2018. Not clear that his drop in EF is acute and may be a chronic finding. Pt is recommended an ischemic eval as outpt once recovered from
infection.
Cont to monitor EKGs and tele.
Cont ACEI and Lopressor for CM.
Cont ASA
Cont to monitor wts and Is and Os closely. His dry wt is unknown. He presented with diarrhea and received IVF so will hold on diuresis for now.
He has tachy wendy with bradycardia since starting Lopressor. Cont low dose lopressor for now if HR can tolerate.
Check nocturnal pulse ox as he may have untreated STACY which could contribute to nocturnal bradycardia.
Cont supportive care of sepsis as per primary service.
Cont to hold Lipitor with elevated LFTs which are improving. Cont to trend elevated LFTs.
He will need outpt cardiac follow up as he has been noncompliant and loss to follow up.
HPI: Andres is a 78 year old male with PMH of hypertension, hyperlipidemia, DM2, peripheral neuropathy, and colon cancer s/p resection who presented to [facility] for evaluation after episode of weakness and fall. He had been having diarrhea for about 2
days prior to arrival which he attributed to a seasoning he used on shrimp. He continued to feel poorly and then had episode of weakness and he fell to the ground. On arrival to ER, he was noted to be febrile with temperature of 103F. He was noted
to have leukocytosis w/ elevated procalcitonin. Head CT unremarkable, CT of chest, abdomen, and pelvis was without evidence of pneumonia, however did note a 12cm area of nondistended stomach/collapsed colon. Testing for flu and covid was negative,
however he did test positive for norovirus. He was admitted with severe sepsis and started on IVFs with IV abx for possible superimposed bacterial infection. Cardiology consulted as patient had troponin checked and returned elevated, trending
upwards to 0.332 thus far. Patient is chest pain free and EKG is without any acute ischemic changes. He was seen by cardiology once in 2018 and has not followed up since.
Progress Note - Basketball Assembler
Subjective
Date of Service: December 24, 2023
Pt seen and examined. No complaints. No chest pain or shortness of breath.
Objective
Labs:
Labs
Hgb 13.3 g/dL (13.0-18.0) 12/23/23 08:35
Hct 40.6 % (39.0-52.0) 12/23/23 08:35
Plt Count 150 10^3/uL (130-400) 12/23/23 08:35
Sodium 130 mmol/L (135-145) L 12/23/23 08:35
Potassium 4.0 mmol/L (3.5-5.1) 12/23/23 08:35
BUN 24 mg/dl (9-20) H 12/23/23 08:35
Creatinine 0.8 mg/dL (0.7-1.3) 12/23/23 08:35
Glucose 90 mg/dl (70-99) 12/23/23 08:35
Troponins
12/21/23 12/21/23 12/22/23
15:16 20:56 02:07
Troponin I 0.122 H* 0.259 H* D 0.332 H* D
12/22/23 12/22/23 12/22/23
09:13 16:15 22:08
Troponin I 0.375 H* 0.288 H* 0.247 H*
Vital Signs and I&O:
Vital Signs
Temp Pulse Resp BP Pulse Ox
97.6 F 55 16 150/65 96
12/24/23 03:44 12/24/23 07:10 12/24/23 07:10 12/24/23 07:10 12/24/23 07:10
Vital Signs
Temp Pulse Resp BP Pulse Ox
97.6 F 55 16 150/65 96
03/31/24 03:44 12/24/23 07:10 12/24/23 07:10 12/24/23 07:10 12/24/23 07:10
Intake & Output
12/22/23 12/23/23 12/24/23 12/25/23
06:59 06:59 06:59 06:59
Intake Total 480 / 480 1200 / 1200 380 / 380
Balance 480 / 480 1200 / 1200 380 / 380
Physical Exam
Physical Exam
General: No acute distress, AAOX3
Neck: Negative JVD
Heart: Regular, Negative S3 positive S1/S2, Negative S4, No murmur
Lungs: CTA b/l, negative wheezes/rales/rhonchi
Abd: Morbid obesity. Positive BS, NT/ND, neg rebound/rigidity/guarding
Ext: Negative cyanosis/clubbing. +2 b/l edema
Skin: venous stasis skin changes
Neuro: nonfocal
[2023-12-24 08:12] LABS: Glucose - Point of Care 82 mg/dl (70-99)
--- NOTE | 2023-12-24 08:19 | PTCARENOTE ---
pt with AM sugar of 63, asymptomatic and given juice. pt ate breakfast and rechecked for a sugar of 82. will recheck per protocol and give report for night shift manager to follow up with 0300 sugar as well. pt oob to chair and verbalizes no discomfort at
this time.
[2023-12-24] MEDS: NOVOLOG FLEXPEN-HIGH RESISTANCE SC ×2 (08:21→11:52)
[2023-12-24] MEDS: ZESTRIL 2.5 MG PO (08:59)
[2023-12-24] MEDS: LOPRESSOR 12.5 MG PO (08:59)
[2023-12-24] MEDS: HEPARIN 5000 UNITS SC (09:00)
[2023-12-24] MEDS: NEURONTIN 200 MG PO (09:00)
[2023-12-24] MEDS: FLUSH (NSS) IV ×2 (09:01→09:06)
[2023-12-24] MEDS: DESENEX/MITRAZOL/ZEASORB 1 APPLIC TOPICAL (09:03)
[2023-12-24 09:17] LABS: Hematocrit 39.6 % (39.0-52.0); Hemoglobin 13.3 g/dL (13.0-18.0); Mean Corp Hgb Conc. 33.6 g/dL (33.0-37.0); Mean Corpuscular Hgb 27.1 pg (27.0-31.0); Mean Corpuscular Volume 80.8 fL (80.0-94.0); Mean Platelet Volume 11.1 fL (7.4-10.4); Platelet Count 179 10^3/uL (130-400); Red Cell Dist. Width 14.6 % (11.5-14.5); White Blood Cell Count 9.7 10^3/uL (4.8-10.8)
[2023-12-24 11:35] VITALS: BP 126/56
[2023-12-24 11:52] LABS: Glucose - Point of Care 128 mg/dl (70-99)
--- NOTE | 2023-12-24 11:52 | W.PN.HOSP.TC ---
Addendum entered and electronically signed by Matty Mack MD 12/25/23 15:45:
[id number]
Original Note:
Today's Communication/Plan
-
Follow-up BMP, LFT, CBC outpatient
Low-dose beta-luna, reduce lisinopril to 2.5 mg daily
Sleep study outpatient
Follow-up pulmonary, PCP, cardiology outpatient
Assessment / Plan
Assessment / Plan
General: Well Developed, Well Nourished and No Apparent Distress
HEENT: Normocephalic and Moist Mucous Membranes
Respiratory: Non Labored Respirations
Cardiac: Irregular Rhythm
Musculoskeletal: No Clubbing, No Cyanosis and Edema
Skin: Dry
Neuro: Nonfocal/Grossly Intact
Psych: Calm
78-year-old male with past medical history of colon cancer, hypertension, hyperlipidemia, diabetes, rosacea, chronic lymphedema, peripheral neuropathy, bowel resection now presenting for weakness with fall which is controlled. Of note has been
having diarrhea for the last 1 to 2 days. Noted to be admitted for severe sepsis most likely secondary to norovirus, possible superimposed bacterial infection
PLAN:
#Severe sepsis
� I suspect secondary to norovirus
-no evidence of PNA on CT
-Atelectasis present
� Stop fluids, tolerating diet
� Advance to low residue diet -tolerating well
� Follow-up blood/stool cultures�no growth to date
� Norovirus positive
� DC abx and monitor - no evidence of bacterial infection at this time
� Monitor respiratory status with IV fluids
#Acute hypoxic respiratory failure
-i suspect 2/2 to atelectasis as well as component of OHS/STACY although may also be related to chf
-needs PSG outpatient
-resolved
#non-LA myocardial injury
-2/2 to sepsis
-possible outpatient stress test
� Cardiology follow-up outpatient
#New Onset HFrEF and HFpEF
-Mild global hypokinesis with marked paradoxical septal motion. LV
ejection fraction is 40-45%
-Cardiology consulted
-ACEI, BB
� Cardiology set up outpatient follow-up
#Tachybradycardia syndrome
� Follow-up outpatient
� On low-dose beta-luna
#Hyponatremia
�monitor with resuscitation
-stop fluids and monitor
� Follow-up BMP outpatient
#Hypokalemia
-monitor and replete
#Diabetes
�Improvement in diet today
�Low fingersticks mostly secondary to poor p.o. intake as well as diarrhea, adjusted by half dose insulin dosing
� As per patient, has been taking insulin regimen as prescribed as outpatient with fingersticks in the morning in the 120s and acknowledges having much higher diet prior to this episode. Patient also is eating much more currently and feels like he
will go back to eating normally. Fingersticks have been within normal limits with hemoglobin A1c 6.6 on current outpatient regimen. Can resume.
#Hyperlipidemia
� Continue statin, aspirin
�Follow-up LFTs outpatient
Transaminitis
� Possibly secondary to acute infection
� Continue to monitor with resuscitation
�Follow-up LFTs outpatient
#DVT ppx
-hsq
More than 30 minutes spent in discharge including
Final examination of the patient
Summarizing hospital stay
Instructions for continuing care to all relevant caregivers
Preparation of discharge records, prescriptions, and referral forms
Total time spent (35 in minutes):
Anticipated Discharge: Today
Subjective/Interval History
-
Date of Service: December 24, 2023
Diet being tolerated, diarrhea much improved
Objective Data
-
Labs:
Laboratory Results
12/24/23 12/24/23 12/24/23
08:03 08:50 11:43
WBC Cancelled 9.7
Hgb Cancelled 13.3
Hct Cancelled 39.6
Plt Count Cancelled 179
Sodium Cancelled Pending
Potassium Cancelled Pending
Chloride Cancelled Pending
Carbon Dioxide Cancelled Pending
BUN Cancelled Pending
Creatinine Cancelled Pending
Glucose Cancelled Pending
Calcium Cancelled Pending
Total Bilirubin Cancelled Pending
AST Cancelled Pending
ALT Cancelled Pending
Alkaline Phosphatase Cancelled Pending
Vital Signs:
Vital Signs
Temp Pulse Resp BP Pulse Ox
97.6 F 55 16 150/65 96
12/24/23 03:44 12/24/23 07:10 12/24/23 07:10 12/24/23 08:59 12/24/23 10:26
I&O
12/23/23 12/24/23 12/25/23
06:59 06:59 06:59
Intake Total 1200 / 1200 380 / 380
Balance 1200 / 1200 380 / 380
Review of Systems
-
History Source: Patient
All other systems: Not reviewed unless documented
Data Reviewed
-
Diagnostic Radiology: Image personally visualized and interpreted and Report Reviewed by me
CT Scan: Image personally visualized and interpreted and Report Reviewed by me
Labs: Labs Reviewed by me
--- NOTE | 2023-12-24 11:56 | W.DS.TRANS ---
DC Summary - Scale Clerk
-
Discharge Instructions:
Discharge Diagnosis/Procedures Severe sepsis - 2/2 to norovirus
Acute Hypoxic respiratory failure
New CM with EF reduced to 40-45%
tachy wendy
Diet Low Fat,Low Cholesterol,Restrict fluids to 48 oz
,Diabetic, Carb Controlled
Activity As tolerated
Blood Work bmp, lfts, cbc in 1 week with pcp
Instructions:
Stand-Alone Forms:
Changes to Home Medications: Yes
Discharge Medications:
DC Medications w/original date entered in [employer]
atorvastatin 10 mg tablet 10 mg PO HS High cholesterol 02/02/15
calcium carbonate (Oyster Shell Calcium 500) 500 mg PO BID@0800,1700 Supplement 02/02/15
cholecalciferol (vitamin D3) 25 mcg (1,000 unit) tablet 1,000 units PO DAILY@1200 Supplement 02/02/15
repaglinide 2 mg tablet 2 mg PO AC Diabetes 02/02/15
gabapentin 100 mg capsule 200 mg PO DAILY Pain 05/09/19
gabapentin 300 mg capsule 300 mg PO HS Pain 05/09/19
multivitamin with folic acid 400 mcg tablet (Tab-A-Blossom) 1 tab PO DAILY Supplement 05/09/19
omega 5-sjx-ukf-fish oil 300 mg-1,000 mg capsule (Fish Oil) 1 ea PO QPM Supplement 05/09/19
aspirin 81 mg tablet,delayed release 162 mg PO DAILY@1700 Blood clot prevention/tx 08/11/20
dulaglutide 0.75 mg/0.5 mL subcutaneous pen injector (Trulicity) 0.3 mg SC SA@2200 Diabetes 08/11/20
magnesium chloride 71.5 mg (magnesium chloride) tablet,delayed release (Slow-Mag) 71.5 mg PO DAILY Supplement ##0 08/11/20
bisacodyl 5 mg tablet,delayed release 10 mg (2 x 5 mg) PO DAILY Gastrointestinal issue ##0 08/15/20
docusate sodium 100 mg capsule 100 mg PO BIDPRN PRN constipation 12/21/23
insulin glargine U-300 conc 300 unit/mL (1.5 mL) subcutaneous pen (T[employer]o SoloStar U-300 Insulin) 80 unit SQ HS Diabetes 12/21/23
lisinopril 2.5 mg tablet 2.5 mg PO DAILY 30 days #30 tabs 12/24/23
metoprolol tartrate 25 mg tablet 12.5 mg (1/2 x 25 mg) PO BID 30 days #30 tabs 12/24/23
miconazole nitrate 2 % topical powder (Miconazorb AF) 1 applic topical BID #85 grams 12/24/23
Home Medication Changes
lisinopril 2.5 mg tablet 2.5 mg PO DAILY 30 days #30 tabs 12/24/23
metoprolol tartrate 25 mg tablet 12.5 mg (1/2 x 25 mg) PO BID 30 days #30 tabs 12/24/23
miconazole nitrate 2 % topical powder (Miconazorb AF) 1 applic topical BID #85 grams 12/24/23
Pending Results: No
[2023-12-24 12:24] LABS: ALT (SGPT) 83 U/L (0-50); AST (SGOT) 48 U/L (17-59); Albumin 3.1 g/dl (3.5-5.0); Alkaline Phosphatase 94 U/L (38-126); Blood Urea Nitrogen 19 mg/dl (9-20); Calcium 8.3 mg/dl (8.4-10.2); Carbon Dioxide 27 mmol/L (22-30); Chloride 100 mmol/L (98-107); Estimated Creatinine Clearance > 125 ml/min; Glucose 134 mg/dl (70-99); Sodium 133 mmol/L (135-145); Total Bilirubin 0.5 mg/dl (0.2-1.3); Total Protein 5.5 g/dl (6.3-8.2); eGFR > 60.00
--- NOTE | 2023-12-24 14:05 | CM ---
Patient has been medically cleared for discharge to home with no additional skilled services. transported home.
== END 2023-12-24 13:55 | disposition home or self-care (01) | DRG 872 ==
LOC: 2 NORTH 11:27
PROVIDERS: Physician Assistant; ADMITTING PHYSICIAN Internal Medicine; EMERGENCY PHYSICIAN Emergency Medicine; FAMILY PHYSICIAN Internal Medicine; OTHER PHYSICIAN Internal Medicine Cardiovascular Disease
DX: A41.89 Other specified sepsis (principal); E87.1 Hypo-osmolality and hyponatremia; I50.40 Unspecified combined systolic (congestive) and diastolic (congestive) heart failure; I5A Non-ischemic myocardial injury (non-traumatic); I42.9 Cardiomyopathy, unspecified; A08.11 Acute gastroenteropathy due to Norwalk agent; R65.20 Severe sepsis without septic shock; Z79.82 Long term (current) use of aspirin; E87.6 Hypokalemia; I11.0 Hypertensive heart disease with heart failure; E11.42 Type 2 diabetes mellitus with diabetic polyneuropathy; E78.00 Pure hypercholesterolemia, unspecified; Z11.52 Encounter for screening for COVID-19
CPT/HCPCS: 70450; 71045; 71260; 74177; 80053; 82962; 83605; 83735; 83880; 84145; 84443; 84484; 85025; 85027; 87040; 87045; 87046; 87324; 87427; 87449; 87502; 87798; 87811; 87899; 93005; 93306; 96361; 96365; 96375; 97162; 97165; 99291; Q9950; Q9967

== ENCOUNTER → 2024-01-05 07:30 | Outpatient (REF) | payer MEDICARE, BC, SELFPAY ==
[2024-01-05 10:48] LABS: ALT (SGPT) 34 U/L (0-50); AST (SGOT) 31 U/L (17-59); Albumin 3.4 g/dl (3.5-5.0); Alkaline Phosphatase 96 U/L (38-126); Direct Bilirubin 0.4 mg/dl (0.0-0.4); Glucose 134 mg/dl (70-99); HDL Cholesterol 49 mg/dl; LDL Cholesterol, Calculated 46 mg/dl; Total Bilirubin 0.9 mg/dl (0.2-1.3); Total Cholesterol 112 mg/dl (50-199); Triglyceride 86 mg/dl (10-149); Very Low Density Lipoprotein 17 mg/dl (0-30)
[2024-01-05 12:20] LABS: Glycohemoglobin (HgbA1c) 6.9 % (4.0-5.6)
== END ==
LOC: HWLAB 07:30
PROVIDERS: ATTENDING PHYSICIAN Internal Medicine
DX: E11.40 Type 2 diabetes mellitus with diabetic neuropathy, unspecified (principal); Z79.4 Long term (current) use of insulin; E78.2 Mixed hyperlipidemia; I10 Essential (primary) hypertension; E66.9 Obesity, unspecified
CPT/HCPCS: 36415; 80061; 80076; 82947; 83036

== ENCOUNTER → 2024-01-23 09:59 | Outpatient (REF) | payer MEDICARE, BC, SELFPAY ==
[2024-01-23 12:10] LABS: Blood Urea Nitrogen 26 mg/dl (9-20); Calcium 9.5 mg/dl (8.4-10.2); Carbon Dioxide 31 mmol/L (22-30); Chloride 99 mmol/L (98-107); Glucose 146 mg/dl (70-99); Potassium 4.8 mmol/L (3.5-5.1); Sodium 135 mmol/L (135-145); eGFR > 60.00
== END ==
LOC: HWLAB 09:59
PROVIDERS: ATTENDING PHYSICIAN Physician Assistant Medical; FAMILY PHYSICIAN Internal Medicine
DX: I42.9 Cardiomyopathy, unspecified (principal)
CPT/HCPCS: 36415; 80048

== ENCOUNTER 2024-02-29 19:00 | Emergency (ER) | payer MEDICARE, BC, SELFPAY ==
[2024-02-29 19:32] VITALS: BP 155/67
--- NOTE | 2024-02-29 20:50 | ED.GENMED ---
History of Present Illness
General
Chief Complaint: Ear Problem
Time Seen by Provider: 02/29/24 20:36
Travel History
Have you had any contact with someone who has COVID-19?: No
Do you have any symptoms of coronavirus? Fever > 100 degrees, chills, cough, shortness of breath, sore throat, loss of taste or smell, muscle aches, or headache?: No
History of Present Illness
History of Present Illness:
Patient presents to the emergency department with left-sided hearing loss and pain in the left ear after using a Q-tip. Notes that he thought he had wax buildup and to put a Q-tip in his ear. When he pulled it out he noticed blood in his hearing
was diminished in that ear. Notes that he occasionally gets buildup of wax and does see an ENT for this.
Past History
Past History
ED Past Medical History: Cancer (Colon cancer 1991), HTN, Hypercholesterolemia, NIDDM, Other (Rosacea, chronic leg edema, peripheral neuropathy) and Other (cellulitis LLE)
ED Past Surgical History: Bowel resection (Colon resection 1991) and Orthopedic (Right foot)
Social History
Tobacco: Non-smoker
Alcohol: None
Drug: None
Personal:
Living: with family
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
Family History
Family History: Hypertension
Phy Exam
Physical Exam
Physical Exam:
General: No acute distress
Head: NCAT
Ears: mild cerumen in R ear, normal TM, L ear with blood in canal, appears to be coming from small anterior perforation
Neck, Normal in appearance, no swelling
Respiratory: No Respiratory distress
Abdomen: No distension
Ext: no edema
Neuro: ANDREW, AOx4
Psych: Normal affect
Skin: Normal color
Course
Vital Signs
Initial and Last Documented VS:
Initial Vital Signs
Temp Pulse Resp BP Pulse Ox
98.7 F 73 18 155/67 99
02/29/24 19:32 02/29/24 19:32 02/29/24 19:32 02/29/24 19:32 02/29/24 19:32
Last Documented Vital Signs
Temp Pulse Resp BP Pulse Ox
98.7 F 73 18 155/67 99
02/29/24 19:32 02/29/24 19:32 02/29/24 19:32 02/29/24 19:32 02/29/24 19:32
*Critical Care Note
Total Time (30-74mins, 75-104mins- exclusive of procedures): Not Applicable
ED Attending Note
ED Attending Note
ED Attending Note:
isolated small perforation
will dc with ofloxacin drops
instructed to follow up with his ENT in the next week
-
Portions of this chart may have been created with voice recognition software.� Occasional wrong word or��sound alike� substitutions may have occurred due to the inherent limitations of voice recognition software.
Discharge Plan
Departure
Patient Disposition: Home (Routine Discharge)
Date of Disposition: 02/29/24
Time of Disposition: 20:52
Patient with high blood pressure during this ER visit?: Yes
Discharge Problem:
Perforation of tympanic membrane
Instructions: Ruptured eardrum
Prescriptions:
New
ofloxacin 0.3 % drops
5 drp otic (ear) BID 14 Days Qty: 5 0RF
No Action
repaglinide 2 MG tablet
2 mg PO AC
atorvastatin 10 MG tablet
10 mg PO HS
calcium carbonate [Oyster Shell Calcium 500] 500 MG tablet
500 mg PO BID@0800,1700
cholecalciferol (vitamin D3) 1,000 UNITS tablet
1,000 units PO DAILY@1200
gabapentin 300 MG capsule
300 mg PO HS
gabapentin 100 MG capsule
200 mg PO DAILY
omega 8-txz-bws-fish oil [Fish Oil] 1 EACH capsule
1 ea PO QPM
multivitamin with folic acid [Tab-A-Blossom] 1 TABLET tablet
1 tab PO DAILY
aspirin 81 MG tablet,delayed release (DR/EC)
162 mg PO DAILY@1700
Slow-Mag 71.5 mg Tablet,Delayed Release (Dr/Ec)
71.5 mg PO DAILY Qty: 0
Trulicity 0.75 MG/0.5 ML pen injector
0.3 mg SC SA@2200
bisacodyl 5 MG tablet,delayed release (DR/EC)
10 mg PO DAILY Qty: 0 0RF
docusate sodium 100 MG capsule
100 mg PO BIDPRN PRN (Reason: constipation)
insulin glargine U-300 conc [T[employer]jeo SoloStar U-300 Insulin] 300 UNIT/ML insulin pen
80 unit SQ HS
miconazole nitrate [Miconazorb AF] 2 % Powder
1 applic topical BID Qty: 85 0RF
lisinopril 2.5 mg Tablet
2.5 mg PO DAILY 30 Days Qty: 30 0RF
metoprolol tartrate 25 mg Tablet
12.5 mg PO BID 30 Days Qty: 30 0RF
Interventions
Interventions:
*General Assessment Last Done: 02/29/24 19:32
*Nursing Disposition Last Done: 02/29/24 21:05
Discharge Date and Time
Discharge Date/Time: 02/29/24 21:05
Print Language: TRISTANIAN
== END 2024-02-29 21:05 | disposition home or self-care (01) ==
LOC: EMR 19:00
PROVIDERS: EMERGENCY PHYSICIAN Emergency Medicine; FAMILY PHYSICIAN Internal Medicine
DX: S09.22XA Traumatic rupture of left ear drum, initial encounter (principal); X58.XXXA Exposure to other specified factors, initial encounter; I10 Essential (primary) hypertension; E78.00 Pure hypercholesterolemia, unspecified; E11.42 Type 2 diabetes mellitus with diabetic polyneuropathy; L71.9 Rosacea, unspecified; Z85.038 Personal history of other malignant neoplasm of large intestine; Z98.0 Intestinal bypass and anastomosis status; Z79.82 Long term (current) use of aspirin
CPT/HCPCS: 99283

== ENCOUNTER → 2024-04-18 07:45 | Outpatient (REF) | payer MEDICARE, BC, SELFPAY ==
[2024-04-18 11:22] LABS: Glycohemoglobin (HgbA1c) 6.9 % (4.0-5.6)
[2024-04-18 11:44] LABS: ALT (SGPT) 33 U/L (0-50); AST (SGOT) 35 U/L (17-59); Albumin 4.1 g/dl (3.5-5.0); Alkaline Phosphatase 92 U/L (38-126); Direct Bilirubin 0.2 mg/dl (0.0-0.4); Glucose 99 mg/dl (70-99); HDL Cholesterol 60 mg/dl; LDL Cholesterol, Calculated 76 mg/dl; Total Bilirubin 0.5 mg/dl (0.2-1.3); Total Cholesterol 160 mg/dl (50-199); Total Protein 6.8 g/dl (6.3-8.2); Triglyceride 120 mg/dl (10-149); Very Low Density Lipoprotein 24 mg/dl (0-30)
== END ==
LOC: HWLAB 07:45
PROVIDERS: ATTENDING PHYSICIAN Internal Medicine
DX: E11.51 Type 2 diabetes mellitus with diabetic peripheral angiopathy without gangrene (principal); Z00.00 Encounter for general adult medical examination without abnormal findings
CPT/HCPCS: 36415; 80061; 80076; 82947; 83036

== ENCOUNTER → 2024-08-21 08:31 | Outpatient (REF) | payer MEDICARE, BC, SELFPAY ==
[2024-08-21 11:33] LABS: % Basophils 0.9 % (0-2); % Eosinophils 2.1 % (0-6); % Immature Granulocytes 0.5 % (0-0.5); % Lymphocytes 15.9 % (20.5-51.1); % Monocytes 8.8 % (1.7-9.3); % Neutrophils 71.8 % (42.2-75.2); Absolute Basophils 0.1 10^3/uL (0-0.2); Absolute Eosinophils 0.2 10^3/uL (0-0.7); Absolute Lymphocytes 1.4 10^3/uL (1.2-3.4); Absolute Monocytes 0.8 10^3/uL (0.1-0.6); Absolute Neutrophils 6.1 10^3/uL (1.4-6.5); Hematocrit 48.1 % (39.0-52.0); Hemoglobin 15.8 g/dL (13.0-18.0); Mean Corp Hgb Conc. 32.8 g/dL (33.0-37.0); Mean Corpuscular Hgb 28.1 pg (27.0-31.0); Mean Corpuscular Volume 85.6 fL (80.0-94.0); Mean Platelet Volume 10.4 fL (7.4-10.4); Nucleated Red Blood Cells % 0 % (-); Platelet Count 202 10^3/uL (130-400); Red Blood Cell Count 5.62 10^6/uL (4.70-6.10); Red Cell Dist. Width 14.1 % (11.5-14.5); White Blood Cell Count 8.5 10^3/uL (4.8-10.8)
[2024-08-21 11:56] LABS: ALT (SGPT) 36 U/L (0-50); AST (SGOT) 34 U/L (17-59); Albumin 4.3 g/dl (3.5-5.0); Alkaline Phosphatase 78 U/L (38-126); Blood Urea Nitrogen 24 mg/dl (9-20); Calcium 9.7 mg/dl (8.4-10.2); Carbon Dioxide 34 mmol/L (22-30); Chloride 96 mmol/L (98-107); Glucose 117 mg/dl (70-99); HDL Cholesterol 54 mg/dl; LDL Cholesterol, Calculated 89 mg/dl; Potassium 5.1 mmol/L (3.5-5.1); Sodium 139 mmol/L (135-145); Total Bilirubin 0.7 mg/dl (0.2-1.3); Total Cholesterol 172 mg/dl (50-199); Total Protein 7.1 g/dl (6.3-8.2); Triglyceride 147 mg/dl (10-149); Very Low Density Lipoprotein 29 mg/dl (0-30); eGFR > 60.00
[2024-08-21 12:21] LABS: Glycohemoglobin (HgbA1c) 6.8 % (4.0-5.6)
[2024-08-21 12:44] LABS: PSA, Total - Screen 1.67 ng/ml (0.0-4.0)
== END ==
LOC: HWLAB 08:31
PROVIDERS: ATTENDING PHYSICIAN Internal Medicine
DX: E11.40 Type 2 diabetes mellitus with diabetic neuropathy, unspecified (principal); Z79.4 Long term (current) use of insulin; I10 Essential (primary) hypertension; Z12.5 Encounter for screening for malignant neoplasm of prostate
CPT/HCPCS: 36415; 80053; 80061; 83036; 85025; G0103

== ENCOUNTER → 2024-12-23 07:27 | Outpatient (REF) | payer MEDICARE, BC, SELFPAY ==
[2024-12-23 09:45] LABS: ALT (SGPT) 29 U/L (0-50); AST (SGOT) 26 U/L (17-59); Albumin 3.9 g/dl (3.5-5.0); Alkaline Phosphatase 98 U/L (38-126); Direct Bilirubin 0.3 mg/dl (0.0-0.4); Glucose 155 mg/dl (70-99); HDL Cholesterol 47 mg/dl; LDL Cholesterol, Calculated 74 mg/dl; Total Bilirubin 0.9 mg/dl (0.2-1.3); Total Cholesterol 143 mg/dl (50-199); Total Protein 6.5 g/dl (6.3-8.2); Triglyceride 110 mg/dl (10-149); Very Low Density Lipoprotein 22 mg/dl (0-30)
[2024-12-23 11:00] LABS: Glycohemoglobin (HgbA1c) 7.2 % (4.0-5.6)
== END ==
LOC: HWLAB 07:27
PROVIDERS: ATTENDING PHYSICIAN Internal Medicine
DX: E11.59 Type 2 diabetes mellitus with other circulatory complications (principal); E11.40 Type 2 diabetes mellitus with diabetic neuropathy, unspecified; E11.21 Type 2 diabetes mellitus with diabetic nephropathy; E78.2 Mixed hyperlipidemia; I10 Essential (primary) hypertension; E66.9 Obesity, unspecified
CPT/HCPCS: 36415; 80061; 80076; 82947; 83036

== ENCOUNTER 2025-04-09 15:57 | Inpatient (IN) | payer MEDICARE, BC, SELFPAY ==
[2025-04-09] VITALS (16 sets, daily range): BP systolic 92–147; BP diastolic 47–103; BMI 34.7; BMI 34.6; BMI 34.3
--- NOTE | 2025-04-09 14:00 | ED.GENMED ---
History of Present Illness
General
Chief Complaint: Skin Problem
Source: patient
Exam Limitations: none
Time Seen by Provider: 04/09/25 13:42
History of Present Illness
History of Present Illness:
79yoM with a history of insulin dependent diabetes with neuropathy, hypertension, hyperlipidemia presenting with his daughter for evaluation of leg redness. Patient has been having issues with bilateral leg swelling and wounds for at least the past
few months. His left leg has been more swollen with increased weeping and redness over the past few days. He was seen at urgent care a few weeks ago and was supposed to make an appointment with wound care but never did. His is currently in
rehab so patient has been taking care of his wounds himself. He denies any fevers. Patient is in rapid atrial fibrillation on arrival with HR in the 150s. He denies any prior history of afib. He denies any chest pain, palpitations, syncope
although has been experiencing exertional dyspnea for about 6 months.
Past History
Past History
ED Past Medical History: Cancer (Colon cancer 1991), HTN, Hypercholesterolemia, NIDDM, Other (Rosacea, chronic leg edema, peripheral neuropathy) and Other (cellulitis LLE)
ED Past Surgical History: Bowel resection (Colon resection 1991) and Orthopedic (Right foot)
Social History
Tobacco: Non-smoker
Alcohol: None
Drug: None
Personal:
Living: with family
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
Family History
Family History: Hypertension
Phy Exam
Physical Exam
Physical Exam:
Chronically ill appearing, no apparent distress
General Physical Exam
General Presentation: no apparent distress
General Skin: warm and dry
General Habitus: normal and elderly
General Mental: alert
ENT Exam
ENT Exam: normocephalic
Cardiovascular Exam
Cardiovascular Exam: irregularly irregular, tachycardia and other (2+ pitting edema in bilateral lower extremities)
Pulmonary Exam
Pulmonary Exam: no respiratory distress, no rales, no stridor, no wheezing and decreased breath sounds
Neurological Exam
Neurological Exam: alert
Jennifer Coma Scale
Eye Opening: Spontaneous
Verbal Response: Oriented
Motor Response: Obeys Commands
GCS Total Score: 15
Skin Exam
Skin Exam: warm/dry and other (Open wounds noted to bilateral lower extremities. L lower leg is erythematous, warm, with malodor and weeping. No crepitus or fluctuance. )
Psychiatric Exam
Psychiatric Exam: normal mood/affect
Course
Orders/Labs/Results
Orders:
Orders
04/09/25 Breakfast
2000 calorie (17 carb) Diabetic
At Your Request: Full Participation
04/09/25 13:13
EKG [Electrocardiogram (*1)] Urgent
Reason for Study: Tachycardia
EKG- Treatment ONCE
04/09/25 13:59
Cardiac Monitoring- Treatment ONCE
CR Chest - 2 Views Urgent
Comment:
Reason For Exam: SOB
04/09/25 14:05
Complete Blood Count/With Diff Urgent
Comprehensive Metabolic Panel Urgent
Lactate Level [Lactic Acid] Urgent
Magnesium Urgent
NT-proBNP Urgent
TSH Reflex To Free T4 Urgent
Troponin I Urgent
Comment: ADD ON
Blood Culture Q30M
ESPERANZA Source: Blood/Venous
Specimen Description:
04/09/25 15:00
0.9% Sodium Chloride 500 ml [Nss] 500 ml IV BOLUS
CefTRIAXone [Rocephin] 2,000 mg IV NOW STA
04/09/25 15:04
Sterile Water [Sterile Water For Injection] 20 ml .ROUTE .STK-MED
04/09/25 15:23
Blood Culture Q30M
ESPERANZA Source: Blood/Venous
Specimen Description:
04/09/25 15:24
Add On- LAB Urgent
Tests Added?: troponin
04/09/25 15:38
Admit/Transfer Patient As Directed
Co-Sign Provider:
Level of Care: Inpatient admission
Assign to:: Telemetry
Physician / Group: annette jimenez
Diagnosis: cellulitis
Reason for Telemetry: Arrhythmia
Date to Stop Telemetry: 04/12/25
Time to Stop Telemetry: 11:00
Reason for Hospitalization: cellulitis
Expected length of stay greater than two midnights?: Yes
ELOS- Estimated Length of Stay in days: 3
I certify the patient meets the requirements for IP care: Yes
PRN Pain Medication Management As Directed
May give lesser potent ordered pain med per pt: Yes
preference::
Protocol:: Medication orders for pain may be administered in a
manner that supports deferring to patient preference
when the pt is:
- Requesting an ordered lesser potent pain medication.
Least to most potent pain medications are defined
as: acetaminophen < NSAID < tramadol < opioids
(morphine, oxycodone, hydromorphone).
- Requesting a lesser dose of the same medication IF
ORDERED.
- Requesting a less intrusive route of administration
if both routes are prescribed by the provider (PO <
IV).
04/09/25 15:39
Code Status As Directed
Resuscitation Status: Full Code
04/09/25 15:41
CARDIOLOGY CONSULT Routine
Consulting Provider: Moe Grijalva
Was physician already notified: Yes
04/09/25 18:29
Acetaminophen [Tylenol/Feverall] 650 mg RECTAL Q4HPRN PRN
Acetaminophen [Tylenol] 650 mg PO Q4HPRN PRN
Dextrose 50%-Water [Dextrose 50% Syringe] 12.5 grams IV [id number] PRN
Glucagon [GlucaGen] 1 mg IM PRN PRN
Insulin Aspart Corrective Low [Novolog Flexpen-Low Resistance] See Protocol SC AC
Metoprolol [Lopressor] 5 mg IV Q4HPRN PRN
04/09/25 18:29
Activity As Directed
Activity Level: Out of Bed-Early Mobility
Bedside Glucose Monitoring As Directed
Frequency: AC&HS
Additional Instructions:: Change to q6h if pt on TPN, tube feeding or not eating
Intake/ Output As Directed
Frequency: Per unit guidelines
Vital Signs As Directed
Frequency: Per unit guidelines
Weight As Directed
Frequency: Daily
DX Deep Vein Thrombosis Video Routine
04/09/25 20:00
Piperacillin/Tazo 3.375 Gram [Zosyn] 3.375 gram in 50 ml IV Q6H
04/10/25 06:00
Basic Metabolic Panel IN AM
Complete Blood Count/No Diff IN AM
Glycohemoglobin (HgbA1c) IN AM
04/11/25 06:00
Basic Metabolic Panel IN AM
Complete Blood Count/No Diff IN AM
04/12/25 06:00
Basic Metabolic Panel IN AM
Complete Blood Count/No Diff IN AM
04/12/25 11:00
DC Protocol for Telemetry ONCE
04/13/25 06:00
Basic Metabolic Panel IN AM
Complete Blood Count/No Diff IN AM
04/14/25 06:00
Complete Blood Count/No Diff IN AM
Abnormal Lab Results
04/09/25
14:05
WBC 11.9 H 10^3/uL
(4.8-10.8)
MCHC 32.0 L g/dL
(33.0-37.0)
MPV 10.9 H fL
(7.4-10.4)
Absolute Neuts (auto) 9.6 H 10^3/uL
(1.4-6.5)
Absolute Lymphs (auto) 1.0 L 10^3/uL
(1.2-3.4)
Absolute Monos (auto) 1.1 H 10^3/uL
(0.1-0.6)
Neutrophils % 80.6 H %
(42.2-75.2)
Lymphocytes % 8.7 L %
(20.5-51.1)
Sodium 133 L mmol/L
(135-145)
Chloride 97 L mmol/L
(98-107)
Carbon Dioxide 34 H mmol/L
(22-30)
Glucose 153 H mg/dl
(70-99)
Calcium 10.4 H mg/dl
(8.4-10.2)
04/09/25 14:05
04/09/25 14:05
Vital Signs
Initial and Last Documented VS:
Initial Vital Signs
Temp Pulse Resp BP Pulse Ox
98.6 F 153 18 119/98 97
04/09/25 13:10 04/09/25 13:10 04/09/25 13:10 04/09/25 13:10 04/09/25 13:10
Last Documented Vital Signs
Temp Pulse Resp BP Pulse Ox
98.6 F 139 26 122/87 96
04/09/25 13:10 04/09/25 19:03 04/09/25 14:00 04/09/25 19:03 04/09/25 14:04
MDM/Problems Addressed
Differential Diagnosis Includes:
79yoM here with bilateral leg wounds and new LLE redness and weeping. HR in the 150s on arrival and triage EKG shows rapid afib. Asymptomatic from this perspective. BP stable. There is malodor and evidence of LLE cellulitis on exam. Differential
diagnosis includes but is not limited to: cellulitis, sepsis, CHF, arrhythmia
Initial ED plan: Check cardiac labs, lactate, blood cultures, and CXR.
*Pulse Oximetry
SaO2: 97
Oxygen Mode of Delivery: Room air
Patient hypoxic: no (97%)
*Critical Care Note
Total Time (30-74mins, 75-104mins- exclusive of procedures): Not Applicable
Update Note
Update Note:
Labs show a white count of 11.9. Lactate WNL. CXR without any significant pulmonary edema. IV fluid bolus and Rocephin ordered for cellulitis. HR improved to the 110s without any specific intervention. Patient admitted for further management.
ED Attending Note
-
Portions of this chart may have been created with voice recognition software.� Occasional wrong word or��sound alike� substitutions may have occurred due to the inherent limitations of voice recognition software.
Discharge Plan
Departure
Patient Disposition: Admit
Date of Disposition: 04/09/25
Time of Disposition: 15:25
Presentation/result/management discussed w/ accepting MD/DO: Hospitalist
Discharge Problem:
Cellulitis of left lower extremity, Atrial fibrillation with rapid ventricular response
Interventions
Interventions:
*Risk Screen - Suicide Last Done: 04/09/25 13:10
*General Assessment Last Done: 04/09/25 13:10
*Neglect/Abuse Screening Last Done: 04/09/25 13:10
*ED- Fall Risk Assessment Last Done: 04/09/25 13:10
*ED COVID-19 Vaccine History Last Done: 04/09/25 13:10
ED-Skin Assessment Last Done: 04/09/25 14:00
Discharge Date and Time
Discharge Date/Time: 04/09/25 18:26
[2025-04-09 14:27] LABS: Hematocrit 45.9 % (39.0-52.0); Hemoglobin 14.7 g/dL (13.0-18.0); Mean Corp Hgb Conc. 32.0 g/dL (33.0-37.0); Mean Corpuscular Volume 86.3 fL (80.0-94.0); Nucleated Red Blood Cells % 0 % (-); Platelet Count 217 10^3/uL (130-400); Red Cell Dist. Width 14.4 % (11.5-14.5)
[2025-04-09 14:41] LABS: ALT (SGPT) 28 U/L (0-50); AST (SGOT) 28 U/L (17-59); Albumin 4.0 g/dl (3.5-5.0); Alkaline Phosphatase 87 U/L (38-126); Blood Urea Nitrogen 17 mg/dl (9-20); Calcium 10.4 mg/dl (8.4-10.2); Carbon Dioxide 34 mmol/L (22-30); Chloride 97 mmol/L (98-107); Estimated Creatinine Clearance 111 ml/min; Glucose 153 mg/dl (70-99); Magnesium 2.1 mg/dl (1.6-2.3); Potassium 4.3 mmol/L (3.5-5.1); Sodium 133 mmol/L (135-145); Total Protein 6.7 g/dl (6.3-8.2); eGFR > 60.00
[2025-04-09] MEDS: NSS 500 IV (15:24)
[2025-04-09] MEDS: ROCEPHIN 2000 MG IV (15:27)
--- NOTE | 2025-04-09 15:48 | HPS.HSE ---
Family Physician
-
Family Physician: Mukund Gilse
Chief Complaint
-
leg redness.
History of Present Illness
HPI
79M HX IDDM, with neuropathy, hypertension, hyperlipidemia presenting with his daughter and seen at ER:
- for evaluation of leg redness.
- has been having issues with bilateral leg swelling and wounds for at least the past few months.
- left leg has been more swollen with increased weeping and redness over the past few days.
- was seen at [facility] a few weeks ago and was supposed to make an appointment with wound care but never did.
- is currently in rehab so patient has been taking care of his wounds himself.
- in rapid atrial fibrillation on arrival with HR in the 150s.
- denies any prior history of a fib.
- has been experiencing exertional dyspnea for about 6 months.
ROS:
- denies any fevers.
- denies any chest pain, palpitations, syncope
Medical History
Past Medical History
Past Medical History: Reports Other (Cancer (Colon cancer 1991), HTN, Hypercholesterolemia, NIDDM, Other (Rosacea, chronic leg edema, peripheral neuropathy) and Other (cellulitis LLE))
Past Surgical History: Reports Other (Bowel resection (Colon resection 1991) and Orthopedic (Right foot))
Social History
Tobacco: Non-smoker
Alcohol: None
Drug: None
Personal:
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
Family History
Family History: Not pertinent
Allergies / Home Medications
Allergies reflects when Allergies were last updated in [facility].
Home Medications with original date entered in [facility]
Allergy/Medication List:
Allergies
Allergy/AdvReac Type Severity Reaction Status Date / Time
No Known Allergies Allergy Verified 05/09/19 18:56
Home Medications
atorvastatin 10 mg tablet 10 mg PO HS High cholesterol 02/02/15
calcium carbonate (Oyster Shell Calcium 500) 500 mg PO BID@0800,1700 Supplement 02/02/15
cholecalciferol (vitamin D3) 25 mcg (1,000 unit) tablet 1,000 units PO DAILY@1200 Supplement 02/02/15
lisinopril 5 mg tablet 5 mg PO DAILY Blood pressure 02/02/15
repaglinide 2 mg tablet 2 mg PO AC Diabetes 02/02/15
gabapentin 100 mg capsule 200 mg PO DAILY Pain 05/09/19
gabapentin 300 mg capsule 300 mg PO HS Pain 05/09/19
multivitamin with folic acid 400 mcg tablet (Tab-A-Blossom) 1 tab PO DAILY Supplement 05/09/19
omega 2-ohp-lsv-fish oil 300 mg-1,000 mg capsule (Fish Oil) 1 ea PO QPM Supplement 05/09/19
aspirin 81 mg tablet,delayed release 162 mg PO DAILY@1700 Blood clot prevention/tx 08/11/20
dulaglutide 0.75 mg/0.5 mL subcutaneous pen injector (Trulicity) 0.3 mg SC SA@2200 Diabetes 08/11/20
magnesium chloride 71.5 mg (magnesium chloride) tablet,delayed release (Slow-Mag) 71.5 mg PO DAILY Supplement ##0 08/11/20
bisacodyl 5 mg tablet,delayed release 10 mg (2 x 5 mg) PO DAILY Gastrointestinal issue ##0 08/15/20
docusate sodium 100 mg capsule 100 mg PO BIDPRN PRN constipation 12/21/23
insulin glargine U-300 conc 300 unit/mL (1.5 mL) subcutaneous pen (Toujeo SoloStar U-300 Insulin) 80 unit SQ HS Diabetes 12/21/23
Review of Systems
-
Skin: Reports See HPI
Physical Exam
Vital Signs
Vital Signs
Temp Pulse Resp BP Pulse Ox
98.6 F 113 26 106/70 96
04/09/25 13:10 04/09/25 15:00 04/09/25 14:00 04/09/25 14:00 04/09/25 14:04
Physical Exam
General: Well Developed, Well Nourished and No Apparent Distress
HEENT: NormoCephalic, Moist mucous membranes and Atraumatic
Respiratory: Clear
Cardiac: S1/S2 and Regular Rhythm; No Murmur or Rub
GI: Soft, Non Tender, Non Distended and Normal Bowel Sounds; No Organomegaly
Rectal: Deferred by Provider
Musculoskeletal: No Clubbing, No Cyanosis and No Edema
Skin: Other (L LLEx cellulitis changes )
Neuro: Nonfocal/grossly intact
Laboratory Results
-
04/09/25 14:05
04/09/25 14:05
Laboratory Results
Lactic Acid 1.5 mmol/L (0.7-2.0) 04/09/25 14:05
Total Bilirubin 0.9 mg/dl (0.2-1.3) 04/09/25 14:05
AST 28 U/L (17-59) 04/09/25 14:05
ALT 28 U/L (0-50) 04/09/25 14:05
Alkaline Phosphatase 87 U/L (38-126) 04/09/25 14:05
Data Reviewed
-
Diagnostic Radiology: Report Reviewed by me
Lab Data: Labs Reviewed by me
Old Records: Reviewed
Impression/Plan
-
Vital Signs
Temp Pulse Resp BP Pulse Ox
98.6 F 113 26 106/70 96
04/09/25 13:10 04/09/25 15:00 04/09/25 14:00 04/09/25 14:00 04/09/25 14:04
Laboratory Tests
04/09/25
14:05
WBC 11.9 H
Sodium 133 L
Potassium 4.3
Chloride 97 L
Carbon Dioxide 34 H
Pending TPNI
BCx sent
CXR
Low lung volumes with chronic elevation of the right hemidiaphragm.
There appears to be some chronic compressive atelectasis along the right lung base as well as some ill-defined opacities within the left lung base, likely scarring versus atelectasis.
Findings similar when compared to the prior study from 12/21/2023, though presence of a superimposed basilar pneumonia difficult to exclude.
EKG
ATRIAL FLUTTER WITH VARIABLE A-V BLOCK
LEFT ANTERIOR FASCICULAR BLOCK
MINIMAL VOLTAGE CRITERIA FOR LVH, MAY BE NORMAL VARIANT ( Ruiz product )
ABNORMAL ECG
WHEN COMPARED WITH ECG OF 24-DEC-2023 06:48,
ATRIAL FLUTTER HAS REPLACED SINUS RHYTHM
VENT. RATE HAS INCREASED BY 84 BPM
Echo 12/22/2023:
Technically difficult study. mod LVH, mild global hypokinesis with marked paradoxical septal motion.
EF 40-45%, no significant valve disease,
Compared to previous echo 07/24/2018, the LVEF appears to have decreased from 55% to 40-45%
Last hospitalist admission: 12/21/2023 - 12/24/2023
DISCHARGE DIAGNOSES:
1. Severe sepsis - secondary to norovirus.
2. Acute hypoxic respiratory failure.
3. 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
4. Tachy wendy.
ASSESSMENT & PLAN
Pending Rx reconciliation
Ongoin bilateral leg wounds/swelling
L leg with evidence of cellulitis
WCC 11.9
- IV Zosyn in place of IV CFTX
CXR with some ill-defined opacities within the left lung base, likely scarring versus atelectasis.
Superimposed basilar pneumonia difficult to exclude.
- low clinical suspicion for PNA
- Current ABx is targeted for cellulitis of diabetic Eliseo
Rapid A Fluter with variable AV block with HR in the 110s to 150s
No prior history AF
HX new cardiomyopathy with ejection fraction reduced to 40%-45% in november 2023
Hemodynamically stable
- PRN IV Metoprolol 5mg q4hr PRN if HF > 130
- DCA card consult
IDDM with peripheral neuropathy
- add ISS low
- c/w BUCKET PUSHER basal bolus insulin
- on Repaglinide ? Pending Rx reconciliation
#Hyperlipidemia
� Continue statin, aspirin
�Follow-up LFTs outpatient
Essential HTN
- Pending Rx reconciliation
HLD HX
- Pending Rx reconciliation
DVT Px: LMWH
Full code
IP TLM
[2025-04-09 16:04] LABS: Troponin I 0.030 ng/ml
--- NOTE | 2025-04-09 16:30 | CON.CAR ---
Addendum entered and electronically signed by Kev Mcknight DO 04/09/25 17:39:
I saw and examined the patient.
The Mosquito Sprayer's note was reviewed and I agree with the note.
Comment:
GENERAL: no acute distress, NC in place
EYE: sclera anicteric
NECK: Supple, no JVD appreciated due to habitus, no carotid bruit appreciated
ENT: normal nose, moist mucosal membranes
CARDIAC: irregularly irregular, +S1/S2, no murmur, rubs, or gallops
CHEST/PULMONARY: Poor effort, diminished sounds at bases, BL crackles
ABDOMEN: Soft, without focal tenderness; mild distention
NEUROLOGICAL: Alert and oriented x3
SKIN: Warm and dry; LLE erythematous wounds present; BL 3+ pitting edema
PSYCH: Normal and appropriate interaction.
EKG AFL possibly typical
Telemetry AFL
A/P as below
Patient presenting with lower extremity cellulitis, worsening shortness of breath and heart failure over the last 1 month. Patient had reduced LVEF 2023. Stress testing has been requested but patient had difficulty laying flat therefore test not
performed.
In the setting of patient's acute heart failure, recommend IV diuresis, strict intake and output, daily weights
Atrial flutter likely consequence of patient's chronic comorbidities, acute stress from infection, and heart failure. Will start IV heparin given patient's stroke risk in the setting of atrial arrhythmia ([id number]: 5 (heart failure, hypertension,
age, diabetes)) as well as rate control with IV diltiazem. Would not start beta-luna in the setting of acute heart failure and would recommend avoiding IV push beta-luna
Echocardiography
Following diuresis, if patient remains in atrial flutter, would then recommend CHRISTINA/DCCV
Ischemic evaluation when able
Original Note:
Consultation
Consultation Request
Date/Time Consultation Requested: 04/09/2025
Date/Time Consultation Performed: 04/09/2025
Requesting Provider: Dr. Sanchez
Performing Provider: Cary Archer PA-C and Dr. Roverto Mcknight
Reason for Consultation: Atrial arrhythmia
Medical History
-
Chief Complaint: LE wound
History of Present Illness:
Patient presents to the ER today with LLE erythema and was found to be in rapid atrial flutter prompting admission and cardiology consultation. Patient has some component of chronic LE edema and lymphedema, but more recently there has been erythema
with wounds and tenderness over the last month. Patient was seen at a local urgent care and was supposed to follow-up with outpatient wound care center, but has not followed up. In the emergency room the patient was noted to have a rapid heart
rate and while on telemetry monitoring and then ECG he was noted to be in rapid atrial flutter. There is no known history of atrial flutter, the patient does have a history of paroxysmal atrial tachycardia. Patient is not chronically on OAC. No
sensation of palpitations, but he has had increased AGRAWAL, abd bloating. His proBNP was 1920 in the ER and that is the highest level he has ever had, but no obvious HF on CXR. Patient was previously admitted to [facility] with norovirus and newly
diagnosed acute HFrEF back in November 2023. Troponin was also elevated at that time, peak troponin was 0.375. Patient followed up in the office on 04/02/2024 and was recommended stress test, but had difficulty laying flat so was never completed.
PMH:
Chronic diastolic congestive heart failure
Cardiomyopathy with EF 40 to 45%
Hypertension
Hyperlipidemia
Type 2 diabetes
Peripheral neuropathy
Chronic back pain
Obesity
Colon cancer status postresection
Chronic lower extremity edema and wounds
Past Medical History
Past Medical History: Other (In HPI)
Past Surgical History: Orthopedic and Other (Colon resection)
Social History
Tobacco: Non-Smoker
Alcohol: None
Drug: None
Personal:
Living: With Family
Employment: Retired
Family History
Family History: Cancer, Diabetes and Hypertension
Allergies / Home Medications
Allergy/AdvReac Type Severity Reaction Status Date / Time
No Known Allergies Allergy Verified 04/09/25 13:10
�Medication �Instructions �Recorded �Confirmed �Type
atorvastatin 10 mg tablet 10 mg PO HS High cholesterol 02/02/15 12/21/23 History
calcium carbonate (Oyster Shell 500 mg PO BID@0800,1700 Supplement 02/02/15 12/21/23 History
Calcium 500)
cholecalciferol (vitamin D3) 25 1,000 units PO DAILY@1200 02/02/15 12/21/23 History
mcg (1,000 unit) tablet Supplement
repaglinide 2 mg tablet 2 mg PO AC Diabetes 02/02/15 12/21/23 History
gabapentin 100 mg capsule 200 mg PO DAILY Pain 05/09/19 12/21/23 History
gabapentin 300 mg capsule 300 mg PO HS Pain 05/09/19 12/21/23 History
multivitamin with folic acid 400 1 tab PO DAILY Supplement 05/09/19 12/21/23 History
mcg tablet (Tab-A-Blossom)
omega 1-crp-muh-fish oil 300 1 ea PO QPM Supplement 05/09/19 12/21/23 History
mg-1,000 mg capsule (Fish Oil)
aspirin 81 mg tablet,delayed 162 mg PO DAILY@1700 Blood clot 08/11/20 12/21/23 History
release prevention/tx
dulaglutide 0.75 mg/0.5 mL 0.3 mg SC SA@2200 Diabetes 08/11/20 12/21/23 History
subcutaneous pen injector
(Trulicity)
magnesium chloride 71.5 mg 71.5 mg PO DAILY Supplement ##0 08/11/20 12/21/23 History
(magnesium chloride)
tablet,delayed release (Slow-Mag)
bisacodyl 5 mg tablet,delayed 10 mg (2 x 5 mg) PO DAILY 08/15/20 12/21/23 Rx
release Gastrointestinal issue ##0
docusate sodium 100 mg capsule 100 mg PO BIDPRN PRN constipation 12/21/23 12/21/23 History
insulin glargine U-300 conc 300 80 unit SQ HS Diabetes 12/21/23 12/21/23 History
unit/mL (1.5 mL) subcutaneous pen
(Nicanor Alvarezar U-300 Insulin)
lisinopril 2.5 mg tablet 2.5 mg PO DAILY 30 days #30 tabs 12/24/23 Rx
metoprolol tartrate 25 mg tablet 12.5 mg (1/2 x 25 mg) PO BID 30 12/24/23 Rx
days #30 tabs
miconazole nitrate 2 % topical 1 applic topical BID #85 grams 12/24/23 Rx
powder (Miconazorb AF)
ofloxacin 0.3 % ear drops 5 drp otic (ear) BID 14 days #5 mL 02/29/24 Rx
Review of Systems
-
History Source: Patient and Family
All other systems: Negative unless noted
Physical Exam
Vital Signs
Temp Pulse Resp BP Pulse Ox
98.6 F 113 26 106/70 96
04/09/25 13:10 04/09/25 15:00 04/09/25 14:00 04/09/25 14:00 04/09/25 14:04
General: NAD, AAOX3
Neck: EOMI
Heart: Atrial flutter on tele. Regularly irregular, no murmur
Lungs: 2 L NC. CTA b/l
Abd: Morbid obesity. +BS
Ext: Trace B/L LE edema
Skin: venous stasis skin changes
Neuro: nonfocal
Lab Results
04/09/25 14:05
04/09/25 14:05
Troponin I 0.030 ng/ml 04/09/25 14:05
Dhk-O-Gwocqenoufv Pept 1920 pg/ml 04/09/25 14:05
Physical Exam
General: No Apparent Distress, Comfortable and Other (obese. on supp O2)
HEENT: Normocephalic, Anicteric and Moist Mucous Membranes
Respiratory: Crackles and Non Labored Respirations
Cardiac: S1/S2 and Irregular Rhythm
GI: Soft, Non Tender and Distended (mild)
Musculoskeletal: No Clubbing, No Cyanosis and Edema (3+ of B/L LE. LLE with open wounds, erythema)
Skin: Warm and Dry
Neuro: AO x 3
Impression / Plan
-
PCP: Dr. Giles
Lead Software Architect: Dr. Tyson
Impression:
Admitted with rapid atrial flutter and LLE cellulitis 04/09/2025
Newly diagnosed atrial flutter with RVR of unclear duration
Acute on chronic HFrEF
h/o paroxysmal atrial tachycardia
h/o CM with EF reduced to 40-45% by echo 12/22/2023
Chronic LE edema, lymphedema
LLE cellulitis
Hx colon cancer with prior colon resection
Hyponatremia
Hypertension
Hyperlipidemia
DM2
Peripheral neuropathy
Chronic back pain
Echo 07/24/2018: EF 55-60%, RV appears dilated and hypokinetic, mild MR, trace AI, trace TR, mild dilation of aortic root 4.0 cm at sinus of valsalva
Echo 12/22/2023: Technically difficult study. mod LVH, mild global hypokinesis with marked paradoxical septal motion. EF 40-45%, no significant valve disease,
Compared to previous echo 07/24/2018, the LVEF appears to have decreased from 55% to 40-45%
Plan:
-Patient presents to the ER today with LLE erythema and was found to be in rapid atrial flutter prompting admission and cardiology consultation. Patient has some component of chronic LE edema and lymphedema, but more recently there has been
erythema with wounds and tenderness over the last month. Patient was seen at a local urgent care and was supposed to follow-up with outpatient wound care center, but has not followed up. In the emergency room the patient was noted to have a rapid
heart rate and while on telemetry monitoring and then ECG he was noted to be in rapid atrial flutter. There is no known history of atrial flutter, the patient does have a history of paroxysmal atrial tachycardia. Patient is not chronically on OAC.
No sensation of palpitations, but he has had increased AGRAWAL, abd bloating. His proBNP was 1920 in the ER and that is the highest level he has ever had, but no obvious HF on CXR. Patient was previously admitted to [facility] with norovirus and newly
diagnosed acute HFrEF back in November 2023. Troponin was also elevated at that time, peak troponin was 0.375. Patient followed up in the office on 04/02/2024 and was recommended stress test, but had difficulty laying flat so was never completed.
-ECG reviewed by me looks like atrial flutter with RVR without acute ST changes, new diagnosis. asymptomatic
-[id number] score of 6 for age, HTN, DM, CHF, vascular disease. will start IV heparin
-as rapid, will initiate IV cardizem gtt
-check echo, last from 11/2023 with EF 40-45%
-TSH WNL
-proBNP 1920. CXR without clear CHF. appears to be volume overloaded on exam. not on diuretic as OP. will initiate IV lasix 40mg BID. Cr 0.8.
-wean supp O2 as able
-CHF education. daughter reports poor diet over the last month as patient's was hospitalized and is currently in [facility]
-During last admission 11/2023 peak troponin of 0.37. Patient was last seen in the office 03/2020 for and declined stress test due to back pain and he felt as though he could not be in the supine position for the amount of time needed for scanning.
Initial troponin now is normal at 0.03. would recommend eventual ischemic evaluation pending results of echo 04/10
-may require CHRISTINA/CV prior to DC.
-continue treatment of acute cellulitis per primary service. consult wound care
-d/w daughter at bedside
Data Reviewed
-
EKG: Tracing Personally Visualized and interpreted
Radiology: Report Reviewed by me
Medical Tests (Nuc Med, Echo etc): Report Reviewed by me
Labs: Labs Reviewed by me
Old Records: Reviewed
--- NOTE | 2025-04-09 17:00 | EDRN ---
Report tubed 416-1; staff notified by phone.
--- NOTE | 2025-04-09 17:20 | PHANOTE ---
04/09/2025, pt. does not know his own meds.; waiting for family member to go home and send over a list so that I can update and confirm his med. list.
[2025-04-09 17:53] LABS: Glucose - Point of Care 122 mg/dl (70-99)
--- NOTE | 2025-04-09 18:31 | PTCARENOTE ---
04/09- Patient transferred and oriented to unit without issue. Patient currently AAOX3; full thickness cellulitis wounds on BL LE; Teley #29, currently Sinus Tachy, on 2L O2. He currently denies any needs at this time.
--- NOTE | 2025-04-09 18:40 | PTCARENOTE ---
04/09 Orders for Cardizem Titration and Heparin gtt. Discussed with Provider if patient can have standing orders for Cardizem Drip or if Titration is needed. If Titration is needed, patient is inappropriate for this floor. Must be transferred to
higher level of care. Provider advised he still wants Cardizem Titration. Will place order to transfer to IVU. Cannot begin Cardizem due to Titration orders, at this time. Teley currently AFib RVR, but patient currently asymptomatic.
[2025-04-09 18:47] LABS: Glucose - Point of Care 107 mg/dl (70-99)
--- NOTE | 2025-04-09 19:03 | PTCARENOTE ---
Rn clinical research coordinator- Patient placed in room 416-1. Boo ordered patient to have cardiezam titrate. Patient to be tranferred to IVU. Nursing tumbling and rolling supervisor notified.
[2025-04-09] MEDS: NOVOLOG FLEXPEN-LOW RESISTANCE SC (19:20)
--- NOTE | 2025-04-09 19:30 | PTCARENOTE ---
Patient transported by ANTHONY Caceres at 1930 via stretcher from to IVU on tele and O2. Patient was able to stand and pivot from bed to stretcher. Provided patient with 2 bags of his belongings and his cane.
[2025-04-09 19:37] LABS: APTT 30.6 Sec (23.4-35.0)
[2025-04-09] MEDS: CARDIZEM 125 IV (20:02)
[2025-04-09] MEDS: LASIX 40 MG IV (20:11)
[2025-04-09] MEDS: ZOSYN 50 IV (20:11)
[2025-04-09 20:23] LABS: Glucose - Point of Care 141 mg/dl (70-99)
[2025-04-09] MEDS: HEPARIN 25000 UNITS/250 ML IV (20:49)
[2025-04-09] MEDS: DESENEX/MITRAZOL/ZEASORB 1 APPLIC TOPICAL (23:00)
[2025-04-10] VITALS (12 sets, daily range): BP systolic 91–144; BP diastolic 48–87; BMI 33.6
[2025-04-10] MEDS: ZOSYN 50 IV ×3 (03:18→14:12)
[2025-04-10] MEDS: SENOKOT-S 1 TABLET PO ×3 (03:19→19:27)
--- NOTE | 2025-04-10 03:45 | PTCARENOTE ---
Pt admitted to room 2241 from ED via stretcher at 1930, able to stand and pivot with a cane to his bed. Aflutter on the tele monitor, HR 150-160's, asymptomatic. BP stable. Pt denies cp or SOB. Cardizem and heparin gtt initiated as per orders. Wound
care consulted, LE dressing done and BASIL wrap applied. Call sky within reach, POC ongoing and in agreement with pt.
[2025-04-10 03:57] LABS: Hematocrit 45.5 % (39.0-52.0); Hemoglobin 14.5 g/dL (13.0-18.0); Mean Corp Hgb Conc. 31.9 g/dL (33.0-37.0); Mean Corpuscular Volume 87.2 fL (80.0-94.0); Platelet Count 221 10^3/uL (130-400); Red Cell Dist. Width 14.5 % (11.5-14.5)
[2025-04-10 04:06] LABS: APTT 43.4 Sec (23.4-35.0)
[2025-04-10 04:17] LABS: Blood Urea Nitrogen 17 mg/dl (9-20); Calcium 9.5 mg/dl (8.4-10.2); Carbon Dioxide 36 mmol/L (22-30); Chloride 93 mmol/L (98-107); Estimated Creatinine Clearance 98 ml/min; Glucose 157 mg/dl (70-99); Potassium 3.9 mmol/L (3.5-5.1); Sodium 136 mmol/L (135-145); eGFR > 60.00
[2025-04-10] MEDS: CARDIZEM 125 IV ×2 (05:57→20:13)
--- NOTE | 2025-04-10 07:45 | W.PN.CARDCBS ---
Addendum entered and electronically signed by Andres Tyson MD 04/10/25 11:16:
I saw and examined the patient.
The LEATHER CUTTER or PA's note was reviewed and I agree with the note.
Comment: General: Well developed, well nourished in NAD.
Neck: Supple, no JVD, HJR, carotids +2 B/L, no bruits bilaterally.
Heart: Non displaced PMI, irregular, no murmurs, No S3, S4, no rubs.
Lungs: Scattered rhonchi
Extremities: No clubbing, cyanosis or edema bilaterally.
Neuro: Grossly nonfocal, awake, alert and oriented x3.
Remains in atrial flutter but reasonable rate control. Will attempt to decrease or stop IV Cardizem. Will add Toprol 25. Check echocardiogram. Continue IV heparin until decision is made that patient does not need any procedures on legs and can
start Eliquis. Might consider outpatient cardioversion. Continue IV Lasix for now and attempt to wean oxygen. Continue to treat cellulitis with antibiotics.
Original Note:
Today's Communication / Plan
-
Add Toprol 25 mg daily. Attempt to decrease IV Cardizem
Continue IV heparin
Continue IV Lasix
Check echo
Wean supplemental O2
CHF education
Treatment of cellulitis
Impression / Plan
-
PCP: Dr. Giles
Mexican Food Machine Tender: Dr. Tyson
Impression:
Admitted with rapid atrial flutter and LLE cellulitis 04/09/2025
Newly diagnosed atrial flutter with RVR of unclear duration
Acute on chronic HFrEF
h/o paroxysmal atrial tachycardia
h/o CM with EF reduced to 40-45% by echo 12/22/2023
Chronic LE edema, lymphedema
LLE cellulitis
Hx colon cancer with prior colon resection
Hyponatremia
Hypertension
Hyperlipidemia
DM2
Peripheral neuropathy
Chronic back pain
Echo 07/24/2018: EF 55-60%, RV appears dilated and hypokinetic, mild MR, trace AI, trace TR, mild dilation of aortic root 4.0 cm at sinus of valsalva
Echo 12/22/2023: Technically difficult study. mod LVH, mild global hypokinesis with marked paradoxical septal motion. EF 40-45%, no significant valve disease,
Compared to previous echo 07/24/2018, the LVEF appears to have decreased from 55% to 40-45%
Plan:
-He presented with left lower extremity cellulitis. Continue wound care and antibiotics per primary service
- Noted to be in rapid atrial flutter on arrival, new diagnosis of unclear duration. Currently in rate controlled flutter on IV Cardizem at 10. Will attempt to wean IV Cardizem and add oral beta-luna
- Remains on IV heparin for now. Eventual transition to Eliquis 5 mg twice daily. Will have case management assess cost to patient
- Check echo today, last from 11/2023 with EF 40 to 45%
- Responding to IV diuresis. Was not on a diuretic as an outpatient. Creatinine stable at 0.9
-wean supp O2 as able
-CHF education. daughter reports poor diet over the last month as patient's was hospitalized and is currently in dent rehab
-During last admission 11/2023 peak troponin of 0.37. Patient was last seen in the office 03/2020 for and declined stress test due to back pain and he felt as though he could not be in the supine position for the amount of time needed for scanning.
Initial troponin now is normal at 0.03. would recommend eventual ischemic evaluation pending results of echo 04/10
-may require CHRISTINA/CV prior to DC.
-Discussed with nursing
Progress Note - Mexican Food Machine Tender
Subjective
Date of Service: April 10, 2025
Patient reports breathing is about the same. Remains without palpitations or chest discomfort. Reports his legs look much improved
Objective
Labs:
04/10/25 03:26
04/10/25 03:26
Labs
Hgb 14.5 g/dL (13.0-18.0) 04/10/25 03:26
Hct 45.5 % (39.0-52.0) 04/10/25 03:26
Plt Count 221 10^3/uL (130-400) 04/10/25 03:26
APTT 43.4 Sec (23.4-35.0) H 04/10/25 03:26
Sodium 136 mmol/L (135-145) 04/10/25 03:26
Potassium 3.9 mmol/L (3.5-5.1) 04/10/25 03:26
BUN 17 mg/dl (9-20) 04/10/25 03:26
Creatinine 0.9 mg/dL (0.7-1.3) 04/10/25 03:26
Glucose 157 mg/dl (70-99) H 04/10/25 03:26
Troponins
04/09/25
14:05
Troponin I 0.030
Vital Signs and I&O:
Vital Signs
Temp Pulse Resp BP Pulse Ox
97.8 F 90 20 107/64 94
04/10/25 06:47 04/10/25 04:30 04/10/25 06:47 04/10/25 04:30 04/10/25 06:47
Vital Signs
Temp Pulse Resp BP Pulse Ox
97.8 F 90 20 107/64 94
04/10/25 06:47 04/10/25 04:30 04/10/25 06:47 04/10/25 04:30 04/10/25 06:47
Intake & Output
04/07/25 04/08/25 04/09/25 04/10/25
07:59 07:59 07:59 07:59
Intake Total 560 / 560
Output Total 2200 / 2200
Balance -1640 / -1640
Physical Exam
Physical Exam
GEN: No distress, awake, alert, oriented x3. Obese. On supplemental oxygen
HEENT: supple, anicteric, mmm, EOMI
LUNGS: Few crackles at bases, no wheezes
CV: Irreg, S1/S2, no murmur
ABD: soft, BS+, NT/ND
EXT: No cyanosis, clubbing. 1+ edema of bilateral lower extremity. Osmin wraps in place bilaterally
NEURO: Gross non-focal
SKIN: Warm, pink, dry. No rash
--- NOTE | 2025-04-10 07:47 | W.PN.HOSP.TC ---
Today's Communication/Plan
-
Continue Heparin Drip
Continue Antibiotics
Monitor in IVU
Assessment / Plan
Assessment / Plan
Physical Exam
General: Well Developed, Well Nourished and No Apparent Distress
HEENT: Normocephalic, Moist mucous membranes and Atraumatic
Respiratory: Clear to Auscultation Bilaterally
Cardiac: S1/S2 and Regular Rhythm; No Murmur or Rub
GI: Soft, Non Tender, Non Distended and Normal Bowel Sounds
Musculoskeletal: No Cyanosis and No Edema
Skin: Other (L LLEx cellulitis changes )
Neuro: Nonfocal/grossly intact
Assessment/Plan
79M HX IDDM, with neuropathy, hypertension, hyperlipidemia presenting with his daughter and seen at ER:
- for evaluation of leg redness.
- has been having issues with bilateral leg swelling and wounds for at least the past few months.
- left leg has been more swollen with increased weeping and redness over the few days leading to presentation to the hospital
- was seen at [facility] a few weeks ago and was supposed to make an appointment with wound care but never did.
- is currently in rehab so patient has been taking care of his wounds himself.
- in rapid atrial fibrillation on arrival with HR in the 150s.
- denies any prior history of a fib.
- has been experiencing exertional dyspnea for about 6 months.

Ongoin bilateral leg wounds/swelling
Left Lower extremity cellulitis
Multiple left lower extremity wounds
Lower extremity lymphedema
Leukocytosis
- IV Zosyn switched to Ancef as per ID
- Lower extremity compression with Osmin wrap and lower extremity elevation to level of heart
- Wound care
- Check DRAGAN
CXR with some ill-defined opacities within the left lung base, likely scarring versus atelectasis.
Superimposed basilar pneumonia difficult to exclude.
- low clinical suspicion for PNA
- Current ABx is targeted for cellulitis of diabetic Eliseo
Atrial Flutter with RVR
- Cardizem Drip
- Beta luna
- Continue Heparin Drip
- DCA card consult
- Might need CHRISTINA/CV
HX new cardiomyopathy with ejection fraction reduced to 40%-45% in november 2023
Acute on Chronic HFrEF
-Continue IV diuresis
-Check echo
IDDM with peripheral neuropathy
- add ISS low
- c/w BUTT WELDER basal bolus insulin
- on Repaglinide ? Pending Rx reconciliation
#Hyperlipidemia
� Continue statin, aspirin
�Follow-up LFTs outpatient
#Essential HTN
- Pending Rx reconciliation
#HLD HX
- Pending Rx reconciliation
#Rosacea
#Hx: CVA (1991)
DVT PPx: Heparin Drip
Full code
Anticipated Discharge: > 48 hours
Subjective/Interval History
-
Date of Service: April 10, 2025
Patient was seen and examined. He denied any chest pain or shortness of breath.
Objective Data
-
Labs:
Laboratory Results
04/10/25 04/10/25
03:26 10:20
WBC 13.2 H
Hgb 14.5
Hct 45.5
Plt Count 221
APTT 43.4 H Pending
Sodium 136
Potassium 3.9
Chloride 93 L
Carbon Dioxide 36 H
BUN 17
Creatinine 0.9
Glucose 157 H
Calcium 9.5
Vital Signs:
Vital Signs
Temp Pulse Resp BP Pulse Ox
97.8 F 90 20 107/64 94
04/10/25 06:47 04/10/25 04:30 04/10/25 06:47 04/10/25 04:30 04/10/25 06:47
I&O
04/09/25 04/10/25 04/11/25
06:59 06:59 06:59
Intake Total 560 / 560
Output Total 2200 / 2200
Balance -1640 / -1640
[2025-04-10 08:01] LABS: Glucose - Point of Care 125 mg/dl (70-99)
[2025-04-10] MEDS: NOVOLOG FLEXPEN-LOW RESISTANCE SC ×2 (08:04→16:56)
[2025-04-10] MEDS: LASIX 40 MG IV ×2 (08:21→15:40)
[2025-04-10] MEDS: DESENEX/MITRAZOL/ZEASORB 1 APPLIC TOPICAL ×2 (08:22→19:27)
[2025-04-10] MEDS: TOPROL XL 25 MG PO (08:36)
--- NOTE | 2025-04-10 09:03 | WOUNDNOTE ---
L CALF (POSTERIOR MEDIAL)
--- NOTE | 2025-04-10 09:04 | WOUNDNOTE ---
L CALF (LATERAL)(with photo flash)
--- NOTE | 2025-04-10 09:05 | WOUNDNOTE ---
L ANKLE (LATERAL POSTERIOR)
--- NOTE | 2025-04-10 09:05 | WOUNDNOTE ---
R CALF (LATERAL ANTERIOR)
--- NOTE | 2025-04-10 09:05 | WOUNDNOTE ---
SACRAL/COCCYX/BUTTOCKS
--- NOTE | 2025-04-10 09:09 | WOUNDNOTE ---
[facility] RN note: Patient admitted with cellulitis. Patient lives with his who is currently in the hospital.
See H&P for complete history.
PMH: neuropathy, HTN, colon cancer 1992 s/p resection, NIDDM, Rosacea, leg edema, cellulitis LE, R foot surgery, lymphedema.
Wound Location and type/assessment: Patient admitted with: Deep dermal venous stasis/lymphedema ulcers (L>R) with moderate/large ss drainage from LLE. LLE with diffuse erythema. +Pedal pulses heard via portable Doppler. +1 LE edema. Sacral/coccyx
redness stage 1 pressure injury vs MASD. Coccyx/buttocks chafed skin d/t frequent sitting in his recliner. He sleeps in his recliner at home. MASD toe webspaces. Groin MASD with yeast appearing rash. Desenex powder being used. Heels blanchable mild
red.
Appetite: good.
Pressure redistribution devices in place: Solyndraax. Patient stands with a cane. He stated he ambulates with a cane.
Plan: LE dressings and knee high Osmin wraps changed. Bariatric air chair cushion given. Instructed patient LE elevation and pressure injury prevention measures.
Confirmed orders including knee high Osmin wraps with Dr. Velasquez and discussed with RN Cesar and PCT/ANTHONY Yarbrough.
Care plan to be updated and will follow as needed.
Note to case management requested for discharge: VN services. Instructed patient to request VN.
Recommended to patient to follow up at wound care center and supervisor compressed yeast (re: mole on L upper ear) upon discharge.
[2025-04-10 10:04] LABS: Glycohemoglobin (HgbA1c) 7.1 % (4.0-5.6)
--- NOTE | 2025-04-10 10:07 | CM ---
Reviewed chart. Met with Mr. Giron to review discharge plans. He states prior to admission he resides with his spouse in a two story home with two steps to enter. He states his spouse in currently in [facility]. He states prior to admission he
ambulates with a single point cane. He states he has a stair glide to get to the second floor. He states they are in the process of converting their living room and powder room to a main suite so they can have a fiet floor set-up. He states he has
a prescription plan with [employer], ([phone]) and uses [facility]. Telephone call to [facility] to check on co-pay for Eliquis 5 mg po bid. His co-pay would be $6.00 for 90 day supply either mail order or retail pharmacy.
Reviewed co-pay with him. He is agreeable to the co-pay. Placed the one month free coupon in his red discharge folder. He states he has never had VNA Services and he states he was in a SNF/Rehab. about 10 years ago. Will need to see his current
functional level to see if he will have any skilled care needs. Medical work-up in progress. The discharge plan is to return home with his spouse ans VNA verses SNF/Rehab. if indicated when medically stable.
[2025-04-10 10:50] LABS: APTT 59.9 Sec (23.4-35.0)
[2025-04-10 11:16] LABS: Glucose - Point of Care 242 mg/dl (70-99)
[2025-04-10] MEDS: NOVOLOG FLEXPEN-LOW RESISTANCE 2 UNITS SC (12:57)
[2025-04-10] MEDS: DULCOLAX 10 MG RECTAL (14:13)
[2025-04-10] MEDS: HEPARIN 25000 UNITS/250 ML IV (15:41)
--- NOTE | 2025-04-10 16:09 | CON.ID ---
Consultation
-
Date/Time Consultation Requested: 04/10/2025 0810
Date/Time Consultation Performed: 04/10/2025 1430
Requesting Provider: Dr. Velasquez
Performing Provider: Dr. Pond
Reason for Consultation: Left lower extremity cellulitis
Chief Complaint / Past History
History of Present Illness
Andres Giron is an 79-year-old man being evaluated in infectious disease consultation at the request of Dr. Velasquez regarding left lower extremity cellulitis. History is obtained from chart review, along with patient interview.
The patient reports a longstanding history of lower extremity lymphedema, for which he uses Tubigrip's for many years. He reports that he was in his usual state of health until several months ago when the edema seem to progress despite compression
therapy and he developed a wound. These seem to shrink on his right leg, but over the past several days his left leg grew even more edematous, with significant weeping and the development of several areas of wounds. During this period of time he
denies any fevers or chills. He denies any pain in the legs, although he notes he has underlying neuropathy and does not have significant feeling below the knees.
Workup in the ER revealed a low-grade leukocytosis, and the patient was started on empiric antibiotics. Infectious Diseases asked to comment upon further antimicrobial therapy.
Past History
Additional Past Medical History:
DM with neuropathy
HTN
HLD
Rosacea
Hx: CVA (1991)
Additional Past Surgical History:
Colon resection
Right foot surgery
Allergy History:
No Known Allergies Allergy (Verified 04/09/25 13:10)
Current Antibiotics:
Zosyn
Social History
Tobacco: Non-Smoker
Alcohol: None
Drug: None
Personal:
Living: With Family
Employment: Retired
Family History
Family History: Not Pertinent
Review of Systems
Vital Signs
Temp Pulse Resp BP Pulse Ox
98.1 F 112 18 99/62 94
04/10/25 15:18 04/10/25 15:40 04/10/25 15:18 04/10/25 15:40 04/10/25 15:18
Physical Exam
Physical Exam
Constitutional: No Acute Distress, Comfortable and Non-toxic
Eyes: No Conjunctival Hemorrhage and Sclera Anicteric
Oral: No Thrush and No Ulcers
Cardiovascular: Irregular Rate (Tachycardic) and S1/S2; Negative S3/S4
Pulmonary: Clear; Negative Wheezes or Rales
Gastrointestinal: Soft, Non Tender and Non Distended
Extremities: Edema (3+ bilateral lower extremities) and Erythema (Left lower extremity)
Skin: Warm and Dry; Negative Rash
Wound: Other (Multiple superficial wounds noted on left lower extremity some with some bloody oozing, some with serous oozing)
Neurological: Awake and Alert
Psychological: Calm
Lab / Diagnostic Study Results
04/10/25 03:26
04/10/25 03:26
Abs Immat Gran (auto) 0.0 10^3/uL (0-0.05) 04/09/25 14:05
Absolute Neuts (auto) 9.6 10^3/uL (1.4-6.5) H 04/09/25 14:05
Absolute Lymphs (auto) 1.0 10^3/uL (1.2-3.4) L 04/09/25 14:05
Absolute Monos (auto) 1.1 10^3/uL (0.1-0.6) H 04/09/25 14:05
Absolute Basos (auto) 0.1 10^3/uL (0-0.2) 04/09/25 14:05
Immature Gran % 0.3 % (0-0.5) 04/09/25 14:05
Neutrophils % 80.6 % (42.2-75.2) H 04/09/25 14:05
Lymphocytes % 8.7 % (20.5-51.1) L 04/09/25 14:05
Monocytes % 9.3 % (1.7-9.3) 04/09/25 14:05
Eosinophils % 0.7 % (0-6) 04/09/25 14:05
Basophils % 0.4 % (0-2) 04/09/25 14:05
Lactic Acid 1.5 mmol/L (0.7-2.0) 04/09/25 14:05
Microbiology Results
Micro:
04/09/25 15:23 Blood Culture - Preliminary
Blood/Venous No Growth in 24 hours- Final report to follow
04/09/25 14:05 Blood Culture - Preliminary
Blood/Venous No Growth in 24 hours- Final report to follow
04/10/25 03:26 MRSA Screen - Pending
Nose
Assessment / Plan
Left lower extremity cellulitis
Multiple left lower extremity wounds
Lower extremity lymphedema
Leukocytosis
DM with neuropathy
HTN
HLD
Rosacea
Hx: CVA (1991)
Recommendations:
Consolidate antibiotics to cefazolin 2 g IV every 8 hours.
Maintain lower extremity compression with Osmin wrap.
Lower extremity elevation to level of heart at least 2 hours out of every 6.
Local care to lower extremity wounds
Monitor white count and temperature curve.
Check lower extremity ABIs
Further recommendations as additional data is returned.
[2025-04-10 16:55] LABS: Glucose - Point of Care 124 mg/dl (70-99)
[2025-04-10] MEDS: ANCEF 10 IV (17:27)
[2025-04-10 17:42] LABS: APTT 67.1 Sec (23.4-35.0)
--- NOTE | 2025-04-10 18:16 | W.PN.UPDATE ---
Update Note
Progress Note Update
Nurse reported that patient is having some blood tinged urine and dribbles, but not all the time. Will order UA. Will need outpatient urology appointment.
--- NOTE | 2025-04-10 19:09 | PTCARENOTE ---
~[id number]: handoff report received from nightshift RN. Pt Aox4, Aflutter 80s-100s, SBP 120s, 4L NC satting 94%. Patient denies pain at this time. Ax1 OBB with cane to chair. )2 weaned to 2L NC, patient does not c/o SOB at this time. while patient
eating breakfast, HR 110s-140s, Cardizem gtt increased to 15. ordered Toprol XL given. Cardizem gtt able to be weaned back down to 10. Heparin gt infusing @ 12. IV Abx hung per order. Wound in to see patient, wound care completed by wound RN, new
wound orders in, BLE wrapped with BASIL wraps for compression. 40 lasix given, I/Os charted. Condom cath on at this time, cathing clear yellow urine. Patient c/o 'sore butt,' sacrum is red and blanchable, air cushion provided and education on
importance of frequent repositioning given. Still no BM, scheduled bowel regimen given, abd round with active bowel sounds and patient states passing flatus. All needs met at this time, call sky within reach.
~1030: Cardizem gtt weaned to 5, HR 80s.
~1100: Cardizem gtt off. Patient also weaned to RA.
~8560-8481: Cardizem gt remains off, HR at rest 80s, with movement patient will go up to 100s-120s, but quickly recover back to 80s.
~4055-4020: while patient eating, HR 110s-120s, cardizem gtt back on @ 5.
~2007-3157: HR remains 110s-140s with ambulation to commode, cardizem gtt increased to 10, Cary Correa made aware, no new orders at this time. increased drainage from LLE, dressing changed.
~2514-8568: Per patient, he has not had BM in a week, Cary correa made aware, suppository ordered and given.
~9155-5891: Patient seen by ID d/t leg wounds. ECHO called since HR remains 80-100 at this time, awaiting arrival.
~2960-2225: ECHO completed. PTT obtained and sent to lab. All needs met at this time, call sky within reach.
~7757-7174: Patient having occasional clots and blood tinged urine with dibbling. Hospitalist made aware, no new orders at this time. PTT result, Heaprin gtt adjusted per protocol.
~2490-6251: Pt AOx4, A flutter on tele 80s-100s at rest, 110s-130s with activity, Cardizem gtt remains at 10. Pt on RA. Ambulating back at forth to bathroom with Ax1 and cane. All needs met at this time, call sky within reach. handoff report given
to nightshift RN.
[2025-04-10 20:20] LABS: Urine Character Clear (Clear)
[2025-04-10 20:26] LABS: Urine Squamous Cell 0-2 /LPF (Few)
[2025-04-10 20:27] LABS: Urine Red Blood Cell 50-60 /HPF (0-2); Urine White Cell 0-2 /HPF (0-5)
[2025-04-10 21:42] LABS: Glucose - Point of Care 152 mg/dl (70-99)
[2025-04-11] VITALS (9 sets, daily range): BP systolic 121–143; BP diastolic 49–107; PULSE 111; O2SAT 95; BMI 32.9
[2025-04-11 00:45] LABS: APTT 92.3 Sec (23.4-35.0)
--- NOTE | 2025-04-11 01:07 | PTCARENOTE ---
Assumed care on pt at 1900, aaox3, A flutter on tele monitoring HR 80s-100s at rest, 110s-130s with activity, Cardizem gtt and heparin gtt infusing (see worklist documentation for dosing). Ambulating back at forth to bathroom with Ax1 and walker,
fall precautions maintained. Tinged blood urine output, sample collected abd sent to lab, no c/o pain or burning with urination. call sky within reach.
[2025-04-11] MEDS: ANCEF 10 IV ×3 (01:56→18:05)
--- NOTE | 2025-04-11 05:32 | PTCARENOTE ---
Pt stating that hasn't had a BM in 7 days, Abd soft nontender, + BS, scheduled senna given. Discussed with pt other bowel meds options and refused for now stating that 'hasn't eaten much and would wait until after breakfast today then decide if he
wants other bowel meds'. Passing gas and mucous from rectum. Denies pain or abdominal discomfort.
[2025-04-11] MEDS: CARDIZEM 125 IV (06:07)
[2025-04-11 07:22] LABS: APTT 96.7 Sec (23.4-35.0)
[2025-04-11 07:28] LABS: Hematocrit 43.3 % (39.0-52.0); Hemoglobin 13.9 g/dL (13.0-18.0); Mean Corp Hgb Conc. 32.1 g/dL (33.0-37.0); Mean Corpuscular Volume 84.7 fL (80.0-94.0); Platelet Count 206 10^3/uL (130-400); Red Cell Dist. Width 14.4 % (11.5-14.5)
[2025-04-11 07:47] LABS: Blood Urea Nitrogen 22 mg/dl (9-20); Calcium 9.2 mg/dl (8.4-10.2); Carbon Dioxide 34 mmol/L (22-30); Chloride 93 mmol/L (98-107); Estimated Creatinine Clearance 87 ml/min; Glucose 176 mg/dl (70-99); Magnesium 1.6 mg/dl (1.6-2.3); Potassium 3.6 mmol/L (3.5-5.1); Sodium 134 mmol/L (135-145); eGFR > 60.00
[2025-04-11] MEDS: SENOKOT-S 1 TABLET PO ×2 (09:01→21:39)
[2025-04-11] MEDS: TOPROL XL 25 MG PO ×2 (09:02→21:39)
[2025-04-11] MEDS: NOVOLOG FLEXPEN-LOW RESISTANCE 1 UNITS SC ×3 (09:02→18:04)
[2025-04-11] MEDS: LASIX 40 MG IV ×2 (09:02→18:04)
--- NOTE | 2025-04-11 09:02 | W.PN.ID1 ---
Date of Service
Date of Service: April 11, 2025
Today's Communication
Continue antibiotics.
Assessment / Plan
Left lower extremity cellulitis
Multiple left lower extremity wounds
Lower extremity lymphedema
Leukocytosis
DM with neuropathy
HTN
HLD
Rosacea
Hx: CVA (1991)
Recommendations:
Continue cefazolin 2 g IV every 8 hours.
Maintain lower extremity compression with Osmin wrap.
Lower extremity elevation to level of heart at least 2 hours out of every 6.
Local care to lower extremity wounds
Monitor white count and temperature curve. Leukocytosis persists, but stable.
ABIs pending
����������������������������������������������������������
Chief Complaint
-: Cellulitis
Subjective / Review of Systems
Patient seen and examined. Reports some decrease in lower extremity edema, but also notes less drainage.
Review of Systems: No Fever and No Chills
Vital Signs / Physical Exam
Vital Signs
Vital Signs
Temp Pulse Resp BP Pulse Ox
98.2 F 77 20 129/64 95
04/11/25 06:53 04/11/25 07:30 04/11/25 06:53 04/11/25 06:53 04/11/25 06:53
Physical Exam
Constitutional: No Acute Distress, Comfortable and Non-toxic
Eyes: Sclera Anicteric
Cardiovascular: S1/S2; Negative S3/S4
Pulmonary: Non Labored
Gastrointestinal: Soft, Non Tender and Non Distended
Extremities: Edema (3+ bilateral lower extremities)
Wound: Other (Left lower extremity wounds dressed. No strikethrough.)
Neurological: Awake and Alert
Psychological: Calm
Objective Data
Lab Data
Lab Results
04/11/25 07:01
04/11/25 07:01
APTT 96.7 Sec (23.4-35.0) H 04/11/25 07:01
Estimated Creat Clear 87 ml/min 04/11/25 07:01
Lactic Acid 1.5 mmol/L (0.7-2.0) 04/09/25 14:05
Total Bilirubin 0.9 mg/dl (0.2-1.3) 04/09/25 14:05
AST 28 U/L (17-59) 04/09/25 14:05
ALT 28 U/L (0-50) 04/09/25 14:05
Alkaline Phosphatase 87 U/L (38-126) 04/09/25 14:05
Most recent labs reviewed.
Micro Results:
04/09/25 15:23 Blood Culture - Preliminary
Blood/Venous No Growth in 24 hours- Final report to follow
04/09/25 14:05 Blood Culture - Preliminary
Blood/Venous No Growth in 24 hours- Final report to follow
04/10/25 03:26 MRSA Screen - Pending
Nose
[2025-04-11] MEDS: HEPARIN 25000 UNITS/250 ML IV (09:03)
[2025-04-11] MEDS: HYDROPHOR 1 APPLIC TOPICAL (09:04)
[2025-04-11] MEDS: DESENEX/MITRAZOL/ZEASORB 1 APPLIC TOPICAL ×2 (09:05→21:39)
[2025-04-11] MEDS: FLUSH (NSS) 1 FLUSH IV (09:11)
--- NOTE | 2025-04-11 10:03 | W.PN.HOSP.TC ---
Today's Communication/Plan
-
Continue IV diuresis
Continue Heparin Drip
Wean Cardizem Drip and titrate beta luna
Assessment / Plan
Assessment / Plan
Physical Exam
General: Well Developed, Well Nourished and No Apparent Distress
HEENT: Normocephalic, Moist mucous membranes and Atraumatic
Respiratory: Clear to Auscultation Bilaterally
Cardiac: S1/S2 and Regular Rhythm
GI: Soft, Non Tender, Non Distended and Normal Bowel Sounds
Musculoskeletal: No Cyanosis and No Edema
Skin: Other (L LLEx cellulitis changes )
Neuro: Nonfocal/grossly intact
Assessment/Plan
79M HX IDDM, with neuropathy, hypertension, hyperlipidemia presenting with his daughter and seen at ER:
- for evaluation of leg redness.
- has been having issues with bilateral leg swelling and wounds for at least the past few months.
- left leg has been more swollen with increased weeping and redness over the few days leading to presentation to the hospital
- was seen at [facility] a few weeks ago and was supposed to make an appointment with wound care but never did.
- is currently in rehab so patient has been taking care of his wounds himself.
- in rapid atrial fibrillation on arrival with HR in the 150s.
- denies any prior history of a fib.
- has been experiencing exertional dyspnea for about 6 months.

Ongoing bilateral leg wounds/swelling
Left Lower extremity cellulitis
Multiple left lower extremity wounds
Lower extremity lymphedema
Leukocytosis
MRSA
Yes, Cellulitis is related to/associated with/due to Diabetes Mellitus
- IV Zosyn switched to Ancef as per ID
- Lower extremity compression with Osmin wrap and lower extremity elevation to level of heart
- Wound care
- Follow-up DRAGNA's
CXR with some ill-defined opacities within the left lung base, likely scarring versus atelectasis.
Superimposed basilar pneumonia difficult to exclude.
- Low clinical suspicion for pneumonia
- Current antibiotics targeted for cellulitis of diabetic Eliseo
Atrial Flutter with RVR
- Cardizem Drip
- Beta luna to be increased
- Continue Heparin Drip
- DCA card consult
- Echo
- Might need CHRISTINA/CV
HX new cardiomyopathy with ejection fraction reduced to 40%-45% in november 2023
Acute on Chronic HFrEF
-Continue IV diuresis
-Check echo
Hematuria
-Cardiology team requested that I consult urology
-Urology mentioned it is transient hematuria outpatient cystoscopy
IDDM with peripheral neuropathy
- add ISS low
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
- on Repaglinide ? Pending Rx reconciliation
#Hyperlipidemia
� Continue statin, aspirin
�Follow-up LFTs outpatient
#Essential HTN
#HLD
-Review home meds
#Rosacea
#Hx: CVA (1991)
#Sacral/coccyx redness stage 1 pressure injury vs MASD
-Wound care
DVT Prophylaxis: Heparin Drip
Code Status: Full code
Anticipated Discharge: > 48 hours
Subjective/Interval History
-
Date of Service: April 11, 2025
Patient was seen and examined. He reported some blood clots in his urine, but denied chest pain or shortness of breath.
Objective Data
-
Labs:
Laboratory Results
04/11/25 04/11/25
00:21 07:01
WBC 12.9 H
Hgb 13.9
Hct 43.3
Plt Count 206
APTT 92.3 H 96.7 H
Sodium 134 L
Potassium 3.6
Chloride 93 L
Carbon Dioxide 34 H
BUN 22 H
Creatinine 1.0
Glucose 176 H
Calcium 9.2
Vital Signs:
Vital Signs
Temp Pulse Resp BP Pulse Ox
98.2 F 114 20 129/64 95
04/11/25 06:53 04/11/25 09:02 04/11/25 06:53 04/11/25 09:02 04/11/25 06:53
I&O
04/10/25 04/11/25 04/12/25
06:59 06:59 06:59
Intake Total 560 / 560
Output Total 2200 / 2200 3750 / 3750
Balance -1640 / -1640 -3750 / -3750
--- NOTE | 2025-04-11 10:04 | W.PN.CARDCBS ---
Addendum entered and electronically signed by Moe Grijalva MD 04/11/25 11:04:
I saw and examined the patient.
The [employer] Kiln Placer's note was reviewed and I agree with the note.
Comment:
GEN: No distress, awake, Ox3
HEENT: supple, anicteric, mmm
LUNGS: CTA, no wheezes/rales
CV: Irreg, S1/S2, 1/6 syst LSB, no gallop
ABD: soft, BS+, NT/ND
EXT: No edema
NEURO: Gross non-focal
SKIN: No rash
Plan:
Remains in rate controlled atrial flutter. Continue IV diuresis.
Wean IV Cardizem and further titrate Toprol.
He is now having hematuria. Hemoglobin is stable. Agree with urology evaluation to better assess etiology of hematuria. He is someone who will need long-term anticoagulation.
Check echo today.
With wounds and infectious risk would hold off on SLG 2 inhibitor.
Original Note:
Today's Communication / Plan
-
Continue IV Lasix
Uptitrate beta-luna and wean IV Cardizem gtt. May need to consider addition of amiodarone
Currently on IV heparin. With hematuria. Hemoglobin stable. Would favor urology evaluation prior to transition to [facility]
Echo pending
PT/OT
Impression / Plan
-
PCP: Dr. Giles
Wheel Assembler: Dr. Tyson
Impression:
Admitted with rapid atrial flutter and LLE cellulitis 04/09/2025
Newly diagnosed atrial flutter with RVR of unclear duration
Acute on chronic HFrEF
h/o paroxysmal atrial tachycardia
h/o CM with EF reduced to 40-45% by echo 12/22/2023
Chronic LE edema, lymphedema
LLE cellulitis
Hx colon cancer with prior colon resection
Hyponatremia
Hypertension
Hyperlipidemia
DM2
Peripheral neuropathy
Chronic back pain
Echo 07/24/2018: EF 55-60%, RV appears dilated and hypokinetic, mild MR, trace AI, trace TR, mild dilation of aortic root 4.0 cm at sinus of valsalva
Echo 12/22/2023: Technically difficult study. mod LVH, mild global hypokinesis with marked paradoxical septal motion. EF 40-45%, no significant valve disease,
Compared to previous echo 07/24/2018, the LVEF appears to have decreased from 55% to 40-45%
Plan:
- He presented with left lower extremity cellulitis. Continue wound care and antibiotics per primary service
- Noted to be in rapid atrial flutter on arrival, new diagnosis of unclear duration. Currently in rate controlled flutter on IV Cardizem at 10. uptitrate BB and attempt to wean off IV cardizem. if rates remain refractory, may consider for
amiodarone
- Remains on IV heparin for now. Eventual transition to Eliquis 5 mg twice daily. Nursing reports some hematuria. UA with 4+ occult blood. Would favor urology evaluation
- Echo result pending, last from 11/2023 with EF 40 to 45%
- Responding to IV diuresis, weight downtrending and now off oxygen. Was not on a diuretic as an outpatient. Creatinine stable at 1.0
- CHF education. daughter reports poor diet over the last month as patient's was hospitalized and is currently in [facility]
- Given current lower extremity wounds, not felt to be good SGLT2 inhibitor candidate
- During last admission 11/2023 peak troponin of 0.37. Patient was last seen in the office 03/2020 for and declined stress test due to back pain and he felt as though he could not be in the supine position for the amount of time needed for scanning.
Initial troponin now is normal at 0.03. would recommend eventual ischemic evaluation pending results of echo 04/10
- may consider CHRISTINA/CV prior to DC however given current hematuria, would likely attempt to hold off
- Discussed with nursing. Discussed with hospitalist via [facility] text
Progress Note - Wheel Assembler
Subjective
Date of Service: April 11, 2025
Reports breathing and left lower extremity are improving. Denies palpitations or chest pain
Objective
Labs:
04/11/25 07:01
04/11/25 07:01
Labs
Hgb 13.9 g/dL (13.0-18.0) 04/11/25 07:01
Hct 43.3 % (39.0-52.0) 04/11/25 07:01
Plt Count 206 10^3/uL (130-400) 04/11/25 07:01
APTT 96.7 Sec (23.4-35.0) H 04/11/25 07:01
Sodium 134 mmol/L (135-145) L 04/11/25 07:01
Potassium 3.6 mmol/L (3.5-5.1) 04/11/25 07:01
BUN 22 mg/dl (9-20) H 04/11/25 07:01
Creatinine 1.0 mg/dL (0.7-1.3) 04/11/25 07:01
Glucose 176 mg/dl (70-99) H 04/11/25 07:01
Troponins
04/09/25
14:05
Troponin I 0.030
Vital Signs and I&O:
Vital Signs
Temp Pulse Resp BP Pulse Ox
98.2 F 114 20 129/64 95
04/11/25 06:53 04/11/25 09:02 04/11/25 06:53 04/11/25 09:02 04/11/25 06:53
Vital Signs
Temp Pulse Resp BP Pulse Ox
98.2 F 114 20 129/64 95
04/11/25 06:53 04/11/25 09:02 04/11/25 06:53 04/11/25 09:02 04/11/25 06:53
Intake & Output
07/16/04/10/25 04/11/25 04/12/25
07:59 07:59 07:59 07:59
Intake Total 560 / 560
Output Total 2200 / 2200 3750 / 3750
Balance -1640 / -1640 -3750 / -3750
Physical Exam
Physical Exam
GEN: No distress, awake, alert, oriented x3. Obese. Sitting in chair
HEENT: supple, anicteric, mmm, EOMI
LUNGS: CTA bilaterally, no wheezes
CV: Irreg, S1/S2, no murmur
ABD: soft, BS+, NT/ND
EXT: No cyanosis, clubbing. 1+ edema of bilateral lower extremity. Osmin wraps in place bilaterally
NEURO: Gross non-focal
SKIN: Warm, pink, dry. No rash
--- NOTE | 2025-04-11 11:47 | PN.CDI ---
CDI
- -
CDI:
Physician Documentation Request
Admit Date: 04/09/25 15:57
Dear Doctor Ron,
Please review the following and provide your response in the progress notes.
Clinical Indicators:
Pt admitted with LLE cellulitis/Acute on Chronic Systolic CHF
Pt with a HX of diabetes /Neuropathy/Lymphedema
Hemoglobin A1C 7.1
Please clarify the relationship between these conditions:
Yes, Cellulitis ___ is related to/associated with/due to Diabetes___.
No, _Cellulitis __ is not related to/associated with/due to _Diabetes __ but it is due to ___. (Please specify)
Other ( please specify)
Use of terms such as suspected, likely, concern for, or probable (associated with a specific diagnosis that is being evaluated, monitored, or treated as if it exists) are acceptable and can be coded in the inpatient setting, when documented at the
time of discharge.
Thank you,
Thea Hu RN
CDI Specialist
[place] [facility]
Please use your independent medical judgment in providing your response.
--- NOTE | 2025-04-11 11:53 | PN.CDI ---
CDI
- -
CDI:
Physician Documentation Request
Admit Date: 04/09/25 15:57
Dear Doctor Ron,
Please review the following and provide your response in the progress notes.
Clinical Indicators:
Pt admitted with LLE cellulitis/Acute on Chronic Systolic CHF
Documented per [facility] note 04/10, ' Patient admitted with... Sacral/coccyx redness stage 1 pressure injury vs MASD...'
Physician documentation of the type and location of wounds is required for compliant documentation. Based on the above clinical findings and your assessment, please provide the following in your progress note:
1. Location of the ulcer/wound, including laterality.
2. Type (etiology) of ulcer/wound:
- Pressure (decubitus) ulcer
- Non-pressure ulcer
- Other ( please specify)
Use of terms such as suspected, likely, concern for, or probable (associated with a specific diagnosis that is being evaluated, monitored, or treated as if it exists) are acceptable and can be coded in the inpatient setting, when documented at the
time of discharge.
Thank you,
Thea Hu RN
CDI Specialist
[place] [facility]
Please use your independent medical judgment in providing your response.
*Source: National Pressure Ulcer Advisory Panel (NPUAP)
--- NOTE | 2025-04-11 11:57 | CM ---
Reviewed chart. Met with Mr. Giron to review discharge plans. He states he is feeling better. He states he ambulated with a walker in the hallway today. We reviewed [facility] and he is agreeable to [facility]. He has selected [facility]. Telephone call to [facility] to make the referral. Sent referral. Prior to admission he resides with his spouse in a two story home with two steps to enter. He has a stair glide to get to the second floor. Prior to admission
he ambulated with a single point cane. They are in the process of converting his first floor into a main suite so they an have a first floor set-up. He has a prescription [facility] with [facility] and uses [facility]. Medical work-up in
progress. The discharge plan is to return home with his spouse and [facility] when medically stable.
[2025-04-11 12:56] LABS: Glucose - Point of Care 174 mg/dl (70-99)
--- NOTE | 2025-04-11 14:46 | CONS.URO ---
Consultation
-
Date/Time Consultation Performed: 04/11/25 1515
Performing Provider: Alvarez
Reason for Consultation: hematuria
Medical History
History of Present Illness
ED admission note, excerpted:
'79M with his daughter and seen at ER:
- for evaluation of leg redness.
- has been having issues with bilateral leg swelling and wounds for at least the past few months.
- left leg has been more swollen with increased weeping and redness over the past few days.
- was seen at [facility] a few weeks ago and was supposed to make an appointment with wound care but never did.
- is currently in rehab so patient has been taking care of his wounds himself.
- in rapid atrial fibrillation on arrival with HR in the 150s.
- denies any prior history of a fib.
- has been experiencing exertional dyspnea for about 6 months.'
Patient reports 'about 10 years ago when I was in [place] and had to go in a hand-held urine, blood from the outside of my penis caused blood to be in my urine. Today, same thing but the next time I went, no blood.'
otherwise no hx
no cigarette smoking hx
Past Medical History
Past Medical History: Other (Colon cancer 1991, HTN, Hypercholesterolemia, NIDDM, Rosacea, chronic leg edema, peripheral neuropathy, cellulitis LLE, Norovirus [2023])
Past Surgical History: Bowel Resection
Social History
Tobacco: Non-smoker
Personal:
Allergies/Home Medications
Allergies
Allergy/AdvReac Type Severity Reaction Status Date / Time
No Known Allergies Allergy Verified 04/09/25 13:10
Home Medications
�Medication �Instructions �Recorded �Confirmed �Type
atorvastatin 10 mg tablet 10 mg PO HS High cholesterol 02/02/15 12/21/23 History
calcium carbonate (Oyster Shell 500 mg PO BID Supplement 02/02/15 12/21/23 History
Calcium 500)
repaglinide 2 mg tablet 2 mg PO AC Diabetes 02/02/15 12/21/23 History
gabapentin 100 mg capsule 200 mg PO DAILY Pain 05/09/19 12/21/23 History
gabapentin 300 mg capsule 300 mg PO HS Pain 05/09/19 12/21/23 History
aspirin 81 mg tablet,delayed 162 mg PO QPM Blood clot 08/11/20 04/09/25 History
release prevention/tx
magnesium chloride 71.5 mg 71.5 mg PO MEALS Supplement ##0 08/11/20 04/09/25 History
(magnesium chloride)
tablet,delayed release (Slow-Mag)
bisacodyl 5 mg tablet,delayed 10 mg (2 x 5 mg) PO DAILY 08/15/20 12/21/23 Rx
release Gastrointestinal issue ##0
docusate sodium 100 mg capsule 100 mg PO BIDPRN PRN constipation 12/21/23 12/21/23 History
Fish Oil 875 mg PO DAILY 04/09/25 History
cholecalciferol (vitamin D3) 25 25 mcg PO DAILY 04/09/25 History
mcg (1,000 unit) tablet
dulaglutide 3 mg/0.5 mL 3 mg SC 04/09/25 04/09/25 History
subcutaneous pen injector
(Trulicity)
fluticasone propionate 50 2 spray intranasal DAILY 04/09/25 History
mcg/actuation nasal
spray,suspension
insulin glargine U-300 conc 300 0 unit SC 04/09/25 History
unit/mL (3 mL) subcutaneous pen
(Toujeo Max U-300 SoloStar)
lisinopril 5 mg tablet 5 mg PO DAILY 04/09/25 History
meloxicam 15 mg tablet 15 mg PO DAILY 04/09/25 History
metoprolol succinate 25 mg 25 mg PO QPM 04/09/25 History
tablet,extended release 24 hr
nxnyjmvnbiez-abdqegho-xswkuc tablet 1 tab PO DAILY 04/09/25 History
pseudoephedrine HCl 120 mg 120 mg PO [id number] PRN nasal 04/09/25 History
tablet,extended release decongestion
spironolactone 25 mg tablet 25 mg PO DAILY 04/09/25 History
Physical Exam
Vital Signs
Vital Signs
Temp Pulse Resp BP Pulse Ox
98.2 F 90 18 129/64 97
04/11/25 11:45 04/11/25 11:45 04/11/25 11:45 04/11/25 09:02 04/11/25 11:45
Lab / Testing Results
Laboratory Results
04/11/25 07:01
04/11/25 07:01
Physical Exam
large adult male sitting in bedside lounger
General: No Apparent Distress
GI: Soft and Non Tender
Assessment / Plan
-
transient hematuria
Rec: outpatient cystoscopy during April
Data Reviewed
-
CT Scan: Image personally visualized and interpreted (CT of C/A/P in 11/2023 demonstrated renal cysts only)
[2025-04-11 17:09] LABS: Glucose - Point of Care 161 mg/dl (70-99)
[2025-04-11 22:30] LABS: Glucose - Point of Care 182 mg/dl (70-99)
[2025-04-12] VITALS (10 sets, daily range): BP systolic 90–152; BP diastolic 51–83; BMI 32.6
[2025-04-12] MEDS: HEPARIN 25000 UNITS/250 ML IV (01:05)
[2025-04-12] MEDS: ANCEF 10 IV ×3 (01:05→16:33)
--- NOTE | 2025-04-12 01:59 | PTCARENOTE ---
Assumed care of the pt @ 1900. Pt is AAOx3 sitting up in chair. A Flutter on the monitor vss. Heparin gtt infusing @ 1500 ml/HR. E. Dotty aware . Urine clear. Call sky within reach.
[2025-04-12 03:32] LABS: Hematocrit 42.8 % (39.0-52.0); Hemoglobin 14.1 g/dL (13.0-18.0); Mean Corp Hgb Conc. 32.9 g/dL (33.0-37.0); Mean Corpuscular Volume 83.8 fL (80.0-94.0); Platelet Count 210 10^3/uL (130-400); Red Cell Dist. Width 14.3 % (11.5-14.5)
[2025-04-12 03:44] LABS: APTT 90.5 Sec (23.4-35.0)
[2025-04-12 03:57] LABS: Blood Urea Nitrogen 25 mg/dl (9-20); Calcium 9.3 mg/dl (8.4-10.2); Carbon Dioxide 37 mmol/L (22-30); Chloride 91 mmol/L (98-107); Estimated Creatinine Clearance 123 ml/min; Glucose 181 mg/dl (70-99); Magnesium 1.8 mg/dl (1.6-2.3); Potassium 3.1 mmol/L (3.5-5.1); Sodium 133 mmol/L (135-145); eGFR > 60.00
[2025-04-12 06:58] LABS: Glucose - Point of Care 177 mg/dl (70-99)
[2025-04-12] MEDS: NOVOLOG FLEXPEN-LOW RESISTANCE 1 UNITS SC ×2 (08:18→17:42)
[2025-04-12] MEDS: SENOKOT-S PO ×2 (08:19→20:35)
[2025-04-12] MEDS: TOPROL XL 25 MG PO ×2 (08:19→10:49)
[2025-04-12] MEDS: DESENEX/MITRAZOL/ZEASORB 1 APPLIC TOPICAL ×2 (08:20→20:35)
--- NOTE | 2025-04-12 08:30 | PTCARENOTE ---
Received patient for 7a-7p shift. Patient AAOx3, without complaints. VSS, aflutter on hospital monitor, hr 110s. Medications administered as ordered. Heparin maintained at 15ml/hr as ordered, infusing via R wrist without issues. b/l leg cheo wraps
c/d/i. L forearm dressing c/d/i. Patient denies pain at this time. Tolerating po intake, voiding without issues. Instructed patient to call for assistance prior to ambulation. Patient verbalized understanding, call sky in reach. Will continue to
monitor.
[2025-04-12] MEDS: KCL 40 MEQ PO (09:03)
--- NOTE | 2025-04-12 10:06 | W.PN.CARDCBS ---
Addendum entered and electronically signed by Levi Henderson MD 04/12/25 11:13:
Patient seen, interviewed and examined by me.
He tells me that he is feeling well. He has had no further hematuria.
Well-appearing, no acute distress
Regular rate and rhythm with normal S1 and S2, no S3 no S4. There is a grade 1/6 apical holosystolic murmur and no rubs. PMI is normally placed.
Lungs are clear to auscultation bilaterally without wheezes rales or rhonchi.
Abdomen soft nontender nondistended with normoactive bowel sounds
Extremities 1+ edema of bilateral lower extremity. Osmin wraps in place bilaterally
Neurologic exam is grossly nonfocal.
PCP: Dr. Giles
Gas Examiner: Dr. Tyson
Impression:
Admitted with rapid atrial flutter and LLE cellulitis 04/09/2025
Newly diagnosed atrial flutter with RVR of unclear duration
Acute on chronic HFrEF
h/o paroxysmal atrial tachycardia
h/o CM with EF reduced to 40-45% by echo 12/22/2023
Chronic LE edema, lymphedema
LLE cellulitis
Hx colon cancer with prior colon resection
Hyponatremia
Hypertension
Hyperlipidemia
DM2
Peripheral neuropathy
Chronic back pain
Echo 07/24/2018: EF 55-60%, RV appears dilated and hypokinetic, mild MR, trace AI, trace TR, mild dilation of aortic root 4.0 cm at sinus of valsalva
Echo 12/22/2023: Technically difficult study. mod LVH, mild global hypokinesis with marked paradoxical septal motion. EF 40-45%, no significant valve disease,
Compared to previous echo 07/24/2018, the LVEF appears to have decreased from 55% to 40-45%
Echo 04/10/2025: Technically difficult study, Lumason used, EF 40 to 45%, mild global hypokinesis, mild MAC, mild MR, mildly dilated aortic root
Plan:
- He presented with left lower extremity cellulitis.
Continue wound care and antibiotics per primary service
- He remains in atrial flutter (newly diagnosed) with overall improved rate control. He has been weaned off of intravenous Cardizem and is on oral beta-luna.
Will increase Toprol-XL to 50 mg twice daily and attempt again better rate control
We will initiate Eliquis 5 mg twice daily for atrial fibrillation related thromboembolic risk reduction as he has had no further hematuria. Hematuria was felt to be transient possibly related to some irritation.
Plan for now is rate control and oral anticoagulation with eventual rhythm control considerations as an outpatient
- Heart failure with mildly reduced ejection fraction
Echo stable compared to prior with EF 40 to 45%.
He is still volume overloaded but has been responding well to IV diuresis (Lasix 40 mg IV twice daily), continue. Was not on a diuretic as an outpatient.
Weight is down 3 pounds overnight
Creatinine remained stable at 0.7
Will initiate Entresto and follow her blood pressure closely
There may eventually be consideration for spironolactone
CHF education
Given lower extremity wounds, felt not to be good SGLT2 inhibitor candidate
During last admission 11/2023 peak troponin of 0.37. Patient was last seen in the office 03/2020 for and declined stress test due to back pain and he felt as though he could not be in the supine position for the amount of time needed for scanning.
Initial troponin now is normal at 0.03. would recommend eventual ischemic evaluation pending results of echo 04/10
Original Note:
Today's Communication / Plan
-
Continue IV Lasix
Increase Toprol
Transition IV heparin to Eliquis
Monitor for hematuria recurrence
Consider for addition of OSMIN inhibitor in a.m. if blood pressure stable
PT/OT
Consider for eventual CHRISTINA/cardioversion
Impression / Plan
-
PCP: Dr. Giles
Gas Examiner: Dr. Tyson
Impression:
Admitted with rapid atrial flutter and LLE cellulitis 04/09/2025
Newly diagnosed atrial flutter with RVR of unclear duration
Acute on chronic HFrEF
h/o paroxysmal atrial tachycardia
h/o CM with EF reduced to 40-45% by echo 12/22/2023
Chronic LE edema, lymphedema
LLE cellulitis
Hx colon cancer with prior colon resection
Hyponatremia
Hypertension
Hyperlipidemia
DM2
Peripheral neuropathy
Chronic back pain
Echo 07/24/2018: EF 55-60%, RV appears dilated and hypokinetic, mild MR, trace AI, trace TR, mild dilation of aortic root 4.0 cm at sinus of valsalva
Echo 12/22/2023: Technically difficult study. mod LVH, mild global hypokinesis with marked paradoxical septal motion. EF 40-45%, no significant valve disease,
Compared to previous echo 07/24/2018, the LVEF appears to have decreased from 55% to 40-45%
Echo 04/10/2025: Technically difficult study, Lumason used, EF 40 to 45%, mild global hypokinesis, mild MAC, mild MR, mildly dilated aortic root
Plan:
- He presented with left lower extremity cellulitis. Continue wound care and antibiotics per primary service
- He remains in atrial flutter at times with suboptimal rate control. He has been weaned off IV Cardizem. Will increase Toprol to 50 mg twice daily. If his rates remain refractory, may consider for amiodarone
- He had some hematuria yesterday which he feels is secondary to irritation from urinal use, improved today. Will transition IV heparin to Eliquis. Hemoglobin stable at 14.1
- Echo stable compared to prior with EF 40 to 45%.
- Responding well to IV diuresis, continue. Was not on a diuretic as an outpatient. Creatinine remained stable at 0.7
- CHF education
-Would consider addition of OSMIN, Aldactone as blood pressure tolerates. Given current lower extremity wounds, not felt to be good SGLT2 inhibitor candidate
- During last admission 11/2023 peak troponin of 0.37. Patient was last seen in the office 03/2020 for and declined stress test due to back pain and he felt as though he could not be in the supine position for the amount of time needed for scanning.
Initial troponin now is normal at 0.03. would recommend eventual ischemic evaluation pending results of echo 04/10
- Could consider for eventual CHRISTINA/cardioversion
- Will arrange outpatient cardiac follow-up
- Discussed with nursing.
Progress Note - Gas Examiner
Subjective
Date of Service: April 12, 2025
Feeling better. Reports leg significantly improved. No shortness of breath
Objective
Labs:
04/12/25 03:12
04/12/25 03:12
Labs
Hgb 14.1 g/dL (13.0-18.0) 04/12/25 03:12
Hct 42.8 % (39.0-52.0) 04/12/25 03:12
Plt Count 210 10^3/uL (130-400) 04/12/25 03:12
APTT 90.5 Sec (23.4-35.0) H 04/12/25 03:12
Sodium 133 mmol/L (135-145) L 04/12/25 03:12
Potassium 3.1 mmol/L (3.5-5.1) L 04/12/25 03:12
BUN 25 mg/dl (9-20) H 04/12/25 03:12
Creatinine 0.7 mg/dL (0.7-1.3) 04/12/25 03:12
Glucose 181 mg/dl (70-99) H 04/12/25 03:12
Troponins
04/09/25
14:05
Troponin I 0.030
Vital Signs and I&O:
Vital Signs
Temp Pulse Resp BP Pulse Ox
97.7 F 119 18 130/79 92
04/12/25 06:49 04/12/25 08:30 04/12/25 06:49 04/12/25 08:19 04/12/25 09:26
Vital Signs
Temp Pulse Resp BP Pulse Ox
97.7 F 119 18 130/79 92
04/12/25 06:49 04/12/25 08:30 04/12/25 06:49 04/12/25 08:19 04/12/25 09:26
Intake & Output
04/10/25 04/11/25 04/12/25 04/13/25
07:59 07:59 07:59 07:59
Intake Total 560 / 560 240 / 240
Output Total 2200 / 2200 4000 / 4000 1050 / 1050
Balance -1640 / -1640 -3760 / -3760 -1050 / -1050
Physical Exam
Physical Exam
GEN: No distress, awake, alert, oriented x3. Obese. Sitting in chair
HEENT: supple, anicteric, mmm, EOMI
LUNGS: CTA bilaterally, no wheezes
CV: Irreg, S1/S2, no murmur
ABD: soft, BS+, NT/ND
EXT: No cyanosis, clubbing. 1+ edema of bilateral lower extremity. Osmin wraps in place bilaterally
NEURO: Gross non-focal
SKIN: Warm, pink, dry. No rash
[2025-04-12] MEDS: LASIX 40 MG IV ×2 (10:15→16:33)
[2025-04-12] MEDS: ELIQUIS 5 MG PO ×2 (10:20→20:34)
[2025-04-12] MEDS: HYDROPHOR 1 APPLIC TOPICAL (10:21)
[2025-04-12 11:47] LABS: Glucose - Point of Care 215 mg/dl (70-99)
[2025-04-12] MEDS: NOVOLOG FLEXPEN-LOW RESISTANCE 2 UNITS SC (11:48)
--- NOTE | 2025-04-12 13:11 | W.PN.ID1 ---
Date of Service
Date of Service: April 12, 2025
Today's Communication
Continue cefazolin.
Assessment / Plan
Left lower extremity cellulitis
Multiple left lower extremity wounds
Lower extremity lymphedema
Leukocytosis
DM with neuropathy
HTN
HLD
Rosacea
Hx: CVA (1991)
Recommendations:
Continue cefazolin 2 g IV every 8 hours.
Maintain lower extremity compression with Osmin wrap.
Lower extremity elevation to level of heart at least 2 hours out of every 6.
Local care to lower extremity wounds
Monitor white count and temperature curve. Leukocytosis persists, but stable.
ABIs okay.
����������������������������������������������������������
Chief Complaint
-: Cellulitis
Subjective / Review of Systems
Review of Systems: No Fever and No Chills
Vital Signs / Physical Exam
Vital Signs
Vital Signs
Temp Pulse Resp BP Pulse Ox
97.9 F 105 16 130/72 95
04/12/25 11:24 04/12/25 10:49 04/12/25 11:24 04/12/25 10:49 04/12/25 11:24
Physical Exam
Constitutional: No Acute Distress, Comfortable and Non-toxic
Eyes: Sclera Anicteric
Pulmonary: Non Labored
Gastrointestinal: Non Distended
Extremities: Edema (3+ bilateral lower extremities) and Erythema (Left lower extremity)
Wound: Other (Left lower extremity wounds dressed. No strikethrough.)
Neurological: Awake and Alert
Psychological: Calm
Objective Data
Lab Data
Lab Results
04/12/25 03:12
04/12/25 03:12
APTT 90.5 Sec (23.4-35.0) H 04/12/25 03:12
Estimated Creat Clear 123 ml/min 04/12/25 03:12
Lactic Acid 1.5 mmol/L (0.7-2.0) 04/09/25 14:05
Total Bilirubin 0.9 mg/dl (0.2-1.3) 04/09/25 14:05
AST 28 U/L (17-59) 04/09/25 14:05
ALT 28 U/L (0-50) 04/09/25 14:05
Alkaline Phosphatase 87 U/L (38-126) 04/09/25 14:05
Most recent labs reviewed.
Micro Results:
04/09/25 15:23 Blood Culture - Preliminary
Blood/Venous No Growth in 48 hours- Final report to follow
04/09/25 14:05 Blood Culture - Preliminary
Blood/Venous No Growth in 48 hours- Final report to follow
04/10/25 03:26 MRSA Screen - Final
Nose Staph aureus MRSA
--- NOTE | 2025-04-12 13:24 | W.PN.HOSP.TC ---
Today's Communication/Plan
-
Continue IV Lasix and IV antibiotics
Assessment / Plan
Assessment / Plan
Physical Exam
General: Well Developed, Well Nourished and No Apparent Distress
HEENT: Normocephalic, Moist mucous membranes and Atraumatic
Respiratory: Clear to Auscultation Bilaterally
Cardiac: S1/S2 and Regular Rhythm
GI: Soft, Non Tender, Non Distended and Normal Bowel Sounds
Musculoskeletal: No Cyanosis and No Edema
Skin: Other (L LLEx cellulitis changes )
Neuro: Nonfocal/grossly intact
Assessment/Plan
79M HX IDDM, with neuropathy, hypertension, hyperlipidemia presenting with his daughter and seen at ER:
- for evaluation of leg redness.
- has been having issues with bilateral leg swelling and wounds for at least the past few months.
- left leg has been more swollen with increased weeping and redness over the few days leading to presentation to the hospital
- was seen at [facility] a few weeks ago and was supposed to make an appointment with wound care but never did.
- is currently in rehab so patient has been taking care of his wounds himself.
- in rapid atrial fibrillation on arrival with HR in the 150s.
- denies any prior history of a fib.
- has been experiencing exertional dyspnea for about 6 months.

Ongoing bilateral leg wounds/swelling
Left Lower extremity cellulitis
Multiple left lower extremity wounds
Lower extremity lymphedema
Leukocytosis
MRSA
Yes, Cellulitis is related to/associated with/due to Diabetes Mellitus
- IV Zosyn switched to Ancef as per ID
- Lower extremity compression with Osmin wrap and lower extremity elevation to level of heart
- Wound care
- DRAGAN's acceptable
CXR with some ill-defined opacities within the left lung base, likely scarring versus atelectasis.
Superimposed basilar pneumonia difficult to exclude.
- Low clinical suspicion for pneumonia
- Current antibiotics targeted for cellulitis of diabetic Eliseo
Atrial Flutter with RVR
- Weaned off Cardizem Drip
- Beta luna increased to 50 mg twice daily given suboptimal rate control
- Heparin Drip transitioned to Eliquis
- [facility] card consult
- Echo
- Might need CHRISTINA/CV
History of new cardiomyopathy with ejection fraction reduced to 40%-45% in november 2023
Acute on Chronic HFrEF
-Continue IV diuresis
-Echo 04/10/25: Technically difficult study, Lumason used, EF 40 to 45%, mild global hypokinesis, mild MAC, mild MR, mildly dilated aortic root
-Consider addition of OSMIN, Aldactone as blood pressure tolerates
-Given current lower extremity wounds, not felt to be good SGLT2 inhibitor candidate
Hypokalemia
-Replaced
-Continue to monitor BMP
Hematuria - RESOLVED
-Cardiology team requested that hospitalist consult urology
-Urology mentioned it is transient hematuria outpatient cystoscopy
IDDM with peripheral neuropathy
- add ISS low
- c/w [employer] basal bolus insulin
- on Repaglinide ? Pending Rx reconciliation
Hyperlipidemia
�Continue statin, aspirin
�Follow-up LFTs outpatient
Essential Hypertension
Hyperlipidemia
-Review home meds
#Rosacea
#Hx: CVA (1991)
#Sacral/coccyx redness stage 1 pressure injury vs MASD
-Wound care
DVT Prophylaxis: Eliquis
Code Status: Full code
Anticipated Discharge: > 48 hours
Subjective/Interval History
-
Date of Service: April 12, 2025
Patient was seen and examined. No new significant symptoms or complaints, and overall he is feeling better today.
Objective Data
-
Labs:
Laboratory Results
04/12/25
03:12
WBC 12.2 H
Hgb 14.1
Hct 42.8
Plt Count 210
APTT 90.5 H
Sodium 133 L
Potassium 3.1 L
Chloride 91 L
Carbon Dioxide 37 H
BUN 25 H
Creatinine 0.7
Glucose 181 H
Calcium 9.3
Vital Signs:
Vital Signs
Temp Pulse Resp BP Pulse Ox
97.9 F 105 16 130/72 95
04/12/25 11:24 04/12/25 10:49 04/12/25 11:24 04/12/25 10:49 04/12/25 11:24
I&O
04/11/25 04/12/25 04/13/25
06:59 06:59 06:59
Intake Total 240 / 240
Output Total 3750 / 3750 1300 / 1300 700 / 700
Balance -3750 / -3750 -1060 / -1060 -700 / -700
[2025-04-12] MEDS: KCL 20 MEQ PO (14:12)
--- NOTE | 2025-04-12 14:55 | PTCARENOTE ---
Patient reassessed, assessment unchanged from previous. HR 100-120s, aflutter on court recording monitor. VSS. b/l lower extremity dressing changed as ordered. Patient oob to chair with assistance. Medications administered as ordered, denies pain at this
time. Will continue to monitor.
[2025-04-12 17:42] LABS: Glucose - Point of Care 170 mg/dl (70-99)
[2025-04-12] MEDS: TOPROL XL 50 MG PO (20:34)
[2025-04-12] MEDS: ENTRESTO 24 MG/26 MG 1 TAB PO (20:34)
[2025-04-12 21:24] LABS: Glucose - Point of Care 232 mg/dl (70-99)
--- NOTE | 2025-04-12 23:26 | PTCARENOTE ---
Patient received at change of shift out of bed to the chair. Reports the edema in his legs has improved and he is feeling better. Remains aflutter on the monitor. Oxygen saturation on room air 96%. Wound care completed as ordered. New dressings
placed for RAC and RW PIVs as the previous dressings were peeling off. BASIL wraps for compression reapplied per patient request. Discussed plan of care. Call sky within reach. Care ongoing
[2025-04-13] VITALS (8 sets, daily range): BP systolic 109–124; BP diastolic 46–80; BMI 32.2
[2025-04-13] MEDS: ANCEF 10 IV ×3 (02:36→17:57)
[2025-04-13 03:00] LABS: Hematocrit 42.1 % (39.0-52.0); Hemoglobin 14.4 g/dL (13.0-18.0); Mean Corp Hgb Conc. 34.2 g/dL (33.0-37.0); Mean Corpuscular Volume 83.0 fL (80.0-94.0); Platelet Count 219 10^3/uL (130-400); Red Cell Dist. Width 14.3 % (11.5-14.5)
[2025-04-13 03:37] LABS: Blood Urea Nitrogen 26 mg/dl (9-20); Calcium 9.5 mg/dl (8.4-10.2); Carbon Dioxide 38 mmol/L (22-30); Chloride 90 mmol/L (98-107); Estimated Creatinine Clearance 122 ml/min; Glucose 201 mg/dl (70-99); Magnesium 1.9 mg/dl (1.6-2.3); Potassium 3.7 mmol/L (3.5-5.1); Sodium 133 mmol/L (135-145); eGFR > 60.00
[2025-04-13] MEDS: OCEAN, SALINE MIST 1 SPRAYS NASAL (06:41)
[2025-04-13 07:35] LABS: Glucose - Point of Care 212 mg/dl (70-99)
[2025-04-13] MEDS: NOVOLOG FLEXPEN-LOW RESISTANCE 2 UNITS SC ×2 (07:35→12:46)
[2025-04-13] MEDS: LASIX 40 MG IV ×2 (08:24→15:45)
[2025-04-13] MEDS: TOPROL XL 50 MG PO (08:25)
[2025-04-13] MEDS: SENOKOT-S 1 TABLET PO ×2 (08:25→19:55)
[2025-04-13] MEDS: FLUSH (NSS) 1 FLUSH IV ×4 (08:25→17:58)
[2025-04-13] MEDS: ENTRESTO 24 MG/26 MG 1 TAB PO ×2 (08:25→19:55)
[2025-04-13] MEDS: HYDROPHOR 1 APPLIC TOPICAL (08:26)
[2025-04-13] MEDS: DESENEX/MITRAZOL/ZEASORB 1 APPLIC TOPICAL ×2 (08:26→23:01)
[2025-04-13] MEDS: ELIQUIS 5 MG PO ×2 (08:26→19:55)
--- NOTE | 2025-04-13 09:51 | W.PN.CARDCBS ---
Today's Communication / Plan
-
Continue Lasix 40 mg IV twice daily today, he may be euvolemic by tomorrow at which point there can be consideration to discharge home on oral Lasix
Maintain Entresto which was initiated yesterday and tolerating well so far
Check renal function and electrolytes tomorrow
I am increasing Toprol-XL to 75 mg twice daily to attempt better rate control of atrial flutter
Eventually plan for cardioversion once she has been adequately anticoagulated for 30 days. If cardioversion is desired sooner, he will need CHRISTINA
Impression / Plan
-
PCP: Dr. Giles
Refrigerating Machine Operator: Dr. Tyson
Impression:
Admitted with rapid atrial flutter and LLE cellulitis 04/09/2025
Newly diagnosed atrial flutter with RVR of unclear duration
Acute on chronic HFrEF
h/o paroxysmal atrial tachycardia
h/o CM with EF reduced to 40-45% by echo 12/22/2023
Chronic LE edema, lymphedema
LLE cellulitis
Hx colon cancer with prior colon resection
Hyponatremia
Hypertension
Hyperlipidemia
DM2
Peripheral neuropathy
Chronic back pain
Echo 07/24/2018: EF 55-60%, RV appears dilated and hypokinetic, mild MR, trace AI, trace TR, mild dilation of aortic root 4.0 cm at sinus of valsalva
Echo 12/22/2023: Technically difficult study. mod LVH, mild global hypokinesis with marked paradoxical septal motion. EF 40-45%, no significant valve disease,
Compared to previous echo 07/24/2018, the LVEF appears to have decreased from 55% to 40-45%
Echo 04/10/2025: Technically difficult study, Lumason used, EF 40 to 45%, mild global hypokinesis, mild MAC, mild MR, mildly dilated aortic root
Plan:
- He presented with left lower extremity cellulitis.
Continue wound care and antibiotics per primary service
- He remains in atrial flutter (newly diagnosed) with overall improved rate control. He has been weaned off of intravenous Cardizem and is on oral beta-luna.
Increased Toprol-XL to 50 mg twice daily on 04/12/25 to attempt again better rate control and will increase further to 75 mg twice daily starting today
Initiated Eliquis 5 mg twice daily on 04/12/25 for atrial fibrillation related thromboembolic risk reduction as he has had no further hematuria. Hematuria was felt to be transient possibly related to some irritation.
Plan for now is rate control and oral anticoagulation with eventual rhythm control considerations as an outpatient
Eventually plan for cardioversion once she has been adequately anticoagulated for 30 days. If cardioversion is desired sooner, he will need CHRISTINA
- Heart failure with mildly reduced ejection fraction
Echo stable compared to prior with EF 40 to 45%.
He is still volume overloaded but has been responding well to IV diuresis (Lasix 40 mg IV twice daily), continue. Was not on a diuretic as an outpatient.
Weight is down 3 pounds overnight and down approximately 17 pounds since admission, fluid balance is -2 L overnight
Creatinine remained stable at 0.7
Continue Lasix 40 mg IV twice daily for today
Initiated Entresto on April 12, 2025 and tolerating well thus far, BP okay and renal function stable.
There may eventually be consideration for spironolactone
CHF education
Given lower extremity wounds, felt not to be good SGLT2 inhibitor candidate
He may be euvolemic by tomorrow/ready for discharge to home tomorrow
During last admission 11/2023 peak troponin of 0.37. Patient was last seen in the office 03/2020 for and declined stress test due to back pain and he felt as though he could not be in the supine position for the amount of time needed for scanning.
Initial troponin now is normal at 0.03. would recommend eventual ischemic evaluation pending results of echo 04/10
Total time spent today was 52 minutes in preparing to see the patient, seeing the patient and coordination of care. This included review of recent laboratory evaluations, cardiact testing, imaging studies, primary care rtecords, specialty
consultations, hospital records, as well as personally interviewing and examining the patient, which included discussion of their tests, review/ordering medications, and communicating with other healthcare professionals and also treatment planning
as well as counseling.
Progress Note - Refrigerating Machine Operator
Subjective
Date of Service: April 13, 2025
He tells me that he is feeling better. He feels that his edema is significantly improved. And is no longer short of breath
Objective
Labs:
04/13/25 02:28
04/13/25 02:28
Labs
Hgb 14.4 g/dL (13.0-18.0) 04/13/25 02:28
Hct 42.1 % (39.0-52.0) 04/13/25 02:28
Plt Count 219 10^3/uL (130-400) 04/13/25 02:28
APTT 90.5 Sec (23.4-35.0) H 04/12/25 03:12
Sodium 133 mmol/L (135-145) L 04/13/25 02:28
Potassium 3.7 mmol/L (3.5-5.1) 04/13/25 02:28
BUN 26 mg/dl (9-20) H 04/13/25 02:28
Creatinine 0.7 mg/dL (0.7-1.3) 04/13/25 02:28
Glucose 201 mg/dl (70-99) H 04/13/25 02:28
Vital Signs and I&O:
Vital Signs
Temp Pulse Resp BP Pulse Ox
98 F 115 20 117/63 95
04/13/25 06:50 04/13/25 09:00 04/13/25 06:50 04/13/25 08:25 04/13/25 08:30
Vital Signs
Temp Pulse Resp BP Pulse Ox
98 F 115 20 117/63 95
04/13/25 06:50 04/13/25 09:00 04/13/25 06:50 04/13/25 08:25 07/20/25 08:30
Intake & Output
04/11/25 04/12/25 04/13/25 04/14/25
06:59 06:59 06:59 06:59
Intake Total 240 / 240 510 / 510
Output Total 3750 / 3750 1300 / 1300 2050 / 2050 500 / 500
Balance -3750 / -3750 -1060 / -1060 -1540 / -1540 -500 / -500
Physical Exam
Physical Exam
Well-appearing, no acute distress
Regular rate and rhythm with normal S1 and S2, no S3 no S4. There is a grade 1/6 apical holosystolic murmur and no rubs. PMI is normally placed.
Lungs are clear to auscultation bilaterally without wheezes rales or rhonchi.
Abdomen soft nontender nondistended with normoactive bowel sounds
Extremities 1+ edema of bilateral lower extremity. Osmin wraps in place bilaterally
Neurologic exam is grossly nonfocal.
--- NOTE | 2025-04-13 10:45 | W.PN.ID1 ---
Date of Service
Date of Service: April 13, 2025
Today's Communication
Continue antibiotics. See below�
Assessment / Plan
Left lower extremity cellulitis
Multiple left lower extremity wounds
Lower extremity lymphedema
Leukocytosis
DM with neuropathy
HTN
HLD
Rosacea
Hx: CVA (1991)
Recommendations:
Continue cefazolin 2 g IV every 8 hours. At discharge, transition to cephalexin 500 mg p.o. q.6 hours, to continue through 04/20.
Maintain lower extremity compression with Osmin wrap.
Lower extremity elevation to level of heart at least 2 hours out of every 6.
Local care to lower extremity wounds
Monitor white count and temperature curve. Leukocytosis resolved today.
ABIs okay.
����������������������������������������������������������
Chief Complaint
-: Cellulitis
Subjective / Review of Systems
Patient seen and examined. Denies pain in the left leg.
Review of Systems: No Fever and No Chills
Vital Signs / Physical Exam
Vital Signs
Vital Signs
Temp Pulse Resp BP Pulse Ox
98 F 115 20 117/63 95
04/13/25 06:50 04/13/25 09:00 04/13/25 06:50 04/13/25 08:25 04/13/25 08:30
Physical Exam
Constitutional: No Acute Distress, Comfortable and Non-toxic
Eyes: Sclera Anicteric
Pulmonary: Non Labored
Gastrointestinal: Non Distended
Extremities: Edema (2+ bilateral lower extremities) and Erythema (Left lower extremity; improved from prior exams.)
Wound: Other (Left lower extremity wounds assessed. Superficial only.)
Neurological: Awake and Alert
Psychological: Calm
Objective Data
Lab Data
Lab Results
04/13/25 02:28
04/13/25 02:28
APTT 90.5 Sec (23.4-35.0) H 04/12/25 03:12
Estimated Creat Clear 122 ml/min 04/13/25 02:28
Lactic Acid 1.5 mmol/L (0.7-2.0) 04/09/25 14:05
Total Bilirubin 0.9 mg/dl (0.2-1.3) 04/09/25 14:05
AST 28 U/L (17-59) 04/09/25 14:05
ALT 28 U/L (0-50) 04/09/25 14:05
Alkaline Phosphatase 87 U/L (38-126) 04/09/25 14:05
Most recent labs reviewed.
Micro Results:
04/09/25 15:23 Blood Culture - Preliminary
Blood/Venous No Growth in 72 hours- Final report to follow
04/09/25 14:05 Blood Culture - Preliminary
Blood/Venous No Growth in 72 hours- Final report to follow
04/10/25 03:26 MRSA Screen - Final
Nose Staph aureus MRSA
--- NOTE | 2025-04-13 10:54 | PTCARENOTE ---
received this very pleasant patient sitting in chair eating pancakes. patient returned to bed, bilat. feet propped on pillow. monitor shows Afib with the HR 120's sitting in bed. VSS. infectious disease doctor in and uncovered left leg to assess
wounds, redressed both legs as ordered, please see documentation. patient is diuresing well from Lasix. patient remains on modified contact.
--- NOTE | 2025-04-13 11:05 | PTCARENOTE ---
K 3.7, supplemented as ordered.
[2025-04-13] MEDS: KCL 40 MEQ PO (11:11)
[2025-04-13 12:45] LABS: Glucose - Point of Care 214 mg/dl (70-99)
--- NOTE | 2025-04-13 14:48 | W.PN.HOSP.TC ---
Today's Communication/Plan
-
See plan
Assessment / Plan
Assessment / Plan
Physical Exam
General: Well Developed, Well Nourished and No Apparent Distress
HEENT: Normocephalic, Moist mucous membranes and Atraumatic
Respiratory: Clear to Auscultation Bilaterally
Cardiac: S1/S2 and Regular Rhythm
GI: Soft, Non Tender, Non Distended and Normal Bowel Sounds
Musculoskeletal: No Cyanosis and No Edema
Skin: Other (L LLEx cellulitis changes )
Neuro: Nonfocal/grossly intact
Assessment/Plan
79M HX IDDM, with neuropathy, hypertension, hyperlipidemia presenting with his daughter and seen at ER:
- for evaluation of leg redness.
- has been having issues with bilateral leg swelling and wounds for at least the past few months.
- left leg has been more swollen with increased weeping and redness over the few days leading to presentation to the hospital
- was seen at [facility] [place] few weeks ago and was supposed to make an appointment with wound care but never did.
- is currently in rehab so patient has been taking care of his wounds himself.
- in rapid atrial fibrillation on arrival with HR in the 150s.
- denies any prior history of a fib.
- has been experiencing exertional dyspnea for about 6 months.

Ongoing bilateral leg wounds/swelling
Left Lower extremity cellulitis
Multiple left lower extremity wounds
Lower extremity lymphedema
Leukocytosis
MRSA
Yes, Cellulitis is related to/associated with/due to Diabetes Mellitus
- IV Zosyn switched to Ancef as per ID
- On discharge, transition to cephalexin 500 mg p.o. q.6 hours, to continue through 04/20/25
- Lower extremity compression with Osmin wrap and lower extremity elevation to level of heart
- Wound care
- DRAGAN's acceptable
CXR with some ill-defined opacities within the left lung base, likely scarring versus atelectasis.
Superimposed basilar pneumonia difficult to exclude.
- Low clinical suspicion for pneumonia
- Current antibiotics targeted for cellulitis of diabetic Eliseo
Atrial Flutter with RVR
- Weaned off Cardizem Drip
- Beta luna increased further to 75 mg twice daily given suboptimal rate control
- Heparin Drip transitioned to Eliquis
- [facility] card consult
- Echo
- Might need CHRISTINA/CV
History of new cardiomyopathy with ejection fraction reduced to 40%-45% in november 2023
Acute on Chronic HFrEF
-Continue IV Lasix
-Echo 04/10/25: Technically difficult study, Lumason used, EF 40 to 45%, mild global hypokinesis, mild MAC, mild MR, mildly dilated aortic root
-Continue newly started Entresto
-Given current lower extremity wounds, not felt to be good SGLT2 inhibitor candidate
Hypokalemia
-Replaced
-Continue to monitor BMP
Hematuria - RESOLVED
-Cardiology team requested that hospitalist consult urology
-Urology mentioned it is transient hematuria outpatient cystoscopy
IDDM with peripheral neuropathy
- Sliding scale low
- c/w DIGESTER CAPPER basal bolus insulin
- on Repaglinide at home
Hyperlipidemia
�Continue statin, aspirin
�Follow-up LFTs outpatient
Essential Hypertension
Hyperlipidemia
-Review home meds
#Rosacea
#Hx: CVA (1991)
#Sacral/coccyx redness stage 1 pressure injury vs MASD
-Wound care
DVT Prophylaxis: Eliquis
Code Status: Full code
Anticipated Discharge: 24 - 48 hours
Subjective/Interval History
-
Date of Service: April 13, 2025
Patient was seen and examined. He denied any new symptoms or complaints.
Objective Data
-
Labs:
Laboratory Results
04/13/25
02:28
WBC 10.3
Hgb 14.4
Hct 42.1
Plt Count 219
Sodium 133 L
Potassium 3.7
Chloride 90 L
Carbon Dioxide 38 H
BUN 26 H
Creatinine 0.7
Glucose 201 H
Calcium 9.5
Vital Signs:
Vital Signs
Temp Pulse Resp BP Pulse Ox
97.5 F 115 20 117/63 95
04/13/25 14:44 04/13/25 09:00 04/13/25 14:44 04/13/25 08:25 04/13/25 14:44
I&O
04/12/25 04/13/25 04/14/25
06:59 06:59 06:59
Intake Total 240 / 240 510 / 510
Output Total 1300 / 1300 2050 / 2050 1700 / 1700
Balance -1060 / -1060 -1540 / -1540 -1700 / -1700
[2025-04-13 17:10] LABS: Glucose - Point of Care 263 mg/dl (70-99)
[2025-04-13] MEDS: NOVOLOG FLEXPEN-LOW RESISTANCE 3 UNITS SC (17:10)
[2025-04-13] MEDS: TOPROL XL 75 MG PO (19:55)
[2025-04-13 22:59] LABS: Glucose - Point of Care 207 mg/dl (70-99)
[2025-04-14] VITALS (18 sets, daily range): BP systolic 60–150; BP diastolic 32–122; BMI 31.7
[2025-04-14] MEDS: ANCEF 10 IV ×3 (02:31→17:53)
[2025-04-14 03:04] LABS: Hematocrit 45.9 % (39.0-52.0); Hemoglobin 15.0 g/dL (13.0-18.0); Mean Corp Hgb Conc. 32.7 g/dL (33.0-37.0); Mean Corpuscular Volume 84.5 fL (80.0-94.0); Platelet Count 234 10^3/uL (130-400); Red Cell Dist. Width 14.2 % (11.5-14.5)
[2025-04-14 03:18] LABS: Blood Urea Nitrogen 25 mg/dl (9-20); Calcium 9.4 mg/dl (8.4-10.2); Carbon Dioxide 38 mmol/L (22-30); Chloride 89 mmol/L (98-107); Estimated Creatinine Clearance 106 ml/min; Glucose 245 mg/dl (70-99); Magnesium 1.8 mg/dl (1.6-2.3); Potassium 3.5 mmol/L (3.5-5.1); Sodium 134 mmol/L (135-145); eGFR > 60.00
[2025-04-14] MEDS: TYLENOL 650 MG PO (04:54)
--- NOTE | 2025-04-14 08:31 | W.PN.CARDCBS ---
Addendum entered and electronically signed by Luanne Henderson MD 04/14/25 11:22:
I saw and examined the patient.
The Physical Metallurgist's note was reviewed and I agree with the note.
Comment:
Exam with +1 lower extremity edema and legs are wrapped.
Crackles at the bases bilaterally with right sided decreased breath sounds
Tacky but regular
Neuro awake and appropriate
He was admitted with rapid atrial flutter, cellulitis and heart failure with mildly reduced ejection fraction. He continues to diurese very very well. Likely near euvolemic status. Chest x-ray repeated with some right hemidiaphragm elevation and
improved volume status. Blood pressure is now decreasing.
Plan at this time from a cardiac point of view:
- Decrease IV Lasix to 40 mg IV daily and likely transition to 40 mg oral tomorrow
- Aldactone is to be added to his regimen as tolerates
- Consider SGLT2 inhibitor as an outpatient
- Entresto was added during his hospital stay
- Rate control of atrial flutter beta-luna has been added rate control is fair
- Continue anticoagulation which was new start this admission
- Plan for cardioversion at the 30-day [place]
- Heart failure teaching in sodium and fluid restricted diet.
- Diabetes treatment per primary service
Discussed at length with the patient
Original Note:
Today's Communication / Plan
-
Check CXR
Cont Lasix 40 mg IV BID
Impression / Plan
-
PCP: Dr. Giles
Assembler For Puller Over Machine: Dr. Tyson
Impression:
Admitted with rapid atrial flutter and LLE cellulitis 04/09/2025
Newly diagnosed typical atrial flutter with RVR and atrial fibrillation of unclear duration
Acute on chronic HFrEF
h/o paroxysmal atrial tachycardia
h/o CM with EF reduced to 40-45% by echo 12/22/2023, stable at 40-45% by echo 04/10/25
Chronic LE edema, lymphedema
LLE cellulitis
Hx colon cancer with prior colon resection
Hyponatremia
Hypertension
Hyperlipidemia
DM2
Peripheral neuropathy
Chronic back pain
Echo 07/24/2018: EF 55-60%, RV appears dilated and hypokinetic, mild MR, trace AI, trace TR, mild dilation of aortic root 4.0 cm at sinus of Valsalva
Echo 12/22/2023: Technically difficult study. mod LVH, mild global hypokinesis with marked paradoxical septal motion. EF 40-45%, no significant valve disease, Compared to previous echo 07/24/2018, the LVEF appears to have decreased from 55% to 40-45%
Echo 04/10/2025: Technically difficult study, Lumason used, EF 40 to 45%, mild global hypokinesis, mild MAC, mild MR, mildly dilated aortic root
Plan:
-Weight is down 21 lbs since admission with Lasix 40 mg IV BID. Patient was not taking a loop diuretic prior to admission.
-Cre stable 0.8 on labs reviewed by me 04/14/25.
-Despite diuresis he has decreased BS left base, will check repeat CXR 2 view, ordered by me 04/14/25.
-EF 40-45% by echo 04/10/25, his EF had been similar in 11/2023.
-Outpatient dose of lisinopril was changed to Entresto 24/26 mg BID
-New to Toprol XL and dose has been increased to 75 mg BID this admission to help with rate control of atrial flutter
-Outpatient dose of spironolactone has been held for hypotension, but will resume with hold parameters for SBP less than 100. Of note, patient could be considered for eventual transition to finerenone 10 mg daily and his co-pay would be $0/month.
-Will start Farxiga 10 mg daily as an outpatient once improved from an infection standpoint.
-Troponin was 0.03 and EF stable on echo. Patient was not able to complete stress test previously due to orthopedic limitations with being supine for imaging, but current plan is to manage as a tachycardia mediated CM. Pending improvement in EF with
rate/rhythm control would consider ischemic evaluation as an outpatient.
-Patient with h/o paroxysmal Atach, but now with atrial flutter. Cardizem gtt initially and now with Toprol XL as noted above. Additional rhythm control options to be considered as an outpatient, likely a CV following 3-4 weeks of OAC. If patient
needs or desires for CV sooner then he would need CHRISTINA/CV.
-New to Eliquis 5 mg BID (age 79, Cre 0.8, wt 121 kg)
-Plan is for home with VN to help with LE wound care
Progress Note - Assembler For Puller Over Machine
Subjective
Date of Service: April 14, 2025
He thinks he is doing better than admission, LE edema improved
Objective
Labs:
04/14/25 02:48
04/14/25 02:48
Labs
Hgb 15.0 g/dL (13.0-18.0) 04/14/25 02:48
Hct 45.9 % (39.0-52.0) 04/14/25 02:48
Plt Count 234 10^3/uL (130-400) 04/14/25 02:48
APTT 90.5 Sec (23.4-35.0) H 04/12/25 03:12
Sodium 134 mmol/L (135-145) L 04/14/25 02:48
Potassium 3.5 mmol/L (3.5-5.1) 04/14/25 02:48
BUN 25 mg/dl (9-20) H 04/14/25 02:48
Creatinine 0.8 mg/dL (0.7-1.3) 04/14/25 02:48
Glucose 245 mg/dl (70-99) H 04/14/25 02:48
Vital Signs and I&O:
Vital Signs
Temp Pulse Resp BP Pulse Ox
97.5 F 103 24 125/71 94
04/14/25 02:41 04/14/25 03:00 04/14/25 02:41 04/14/25 02:38 04/14/25 02:41
Vital Signs
Temp Pulse Resp BP Pulse Ox
97.5 F 103 24 125/71 94
04/14/25 02:41 04/14/25 03:00 04/14/25 02:41 04/14/25 02:38 04/14/25 02:41
Intake & Output
04/12/25 04/13/25 04/14/25 04/15/25
06:59 06:59 06:59 06:59
Intake Total 240 / 240 510 / 510 150 / 150
Output Total 1300 / 1300 2049 / 2049 2500 / 2500
Balance -1060 / -1060 -1540 / -1540 -2350 / -2350
Physical Exam
Physical Exam
GEN: AAOx3
LUNGS: RA. Decreased BS left base
CV: Atrial flutter on tele. Irreg irreg
EXT: +1 B/L LE edema.
NEURO: Gross non-focal
SKIN: No rash
[2025-04-14 08:32] LABS: Glucose - Point of Care 253 mg/dl (70-99)
[2025-04-14] MEDS: NOVOLOG FLEXPEN-LOW RESISTANCE 3 UNITS SC (08:32)
[2025-04-14] MEDS: SENOKOT-S 1 TABLET PO ×2 (08:33→19:47)
[2025-04-14] MEDS: ENTRESTO 24 MG/26 MG 1 TAB PO ×2 (08:33→22:37)
[2025-04-14] MEDS: ELIQUIS 5 MG PO ×2 (08:33→19:47)
[2025-04-14] MEDS: LASIX 40 MG IV (08:34)
[2025-04-14] MEDS: FLUSH (NSS) 1 FLUSH IV ×3 (08:36→17:55)
[2025-04-14] MEDS: HYDROPHOR 1 APPLIC TOPICAL (08:36)
[2025-04-14] MEDS: DESENEX/MITRAZOL/ZEASORB 1 APPLIC TOPICAL ×2 (08:37→19:46)
--- NOTE | 2025-04-14 09:45 | PTCARENOTE ---
received patient this am sitting in chair watching TV. monitor shows Afib, BP 60/32,84/45,91/52, patient is asymptomatic with these BP, strongly encouraged to use call sky when he wants to get up, patient verbalizes understanding. Jane BEAVERS
aware, waiting to give some am medications after seen by cardiology.
--- NOTE | 2025-04-14 10:20 | VNURNOTE ---
Home Health Liaison spoke with patient to discuss [facility] nurse/therapy, visits, schedule and homebound status. Patient is agreeable and understands that visits at home will be 2-3 x per week to assess and teach medical management. Patient is
willing to learn LE wound care. He confirms that he has a scale at home. Patient is aware that [facility] will contact them for start of care in 1-2 days after discharge from .
[facility] referral completed in [facility].
--- NOTE | 2025-04-14 10:38 | CM ---
Chart reviewed. Patient is independent of ADLS, lives with his who is in [facility], 2 [address], 2 [address]ABBI[address], ambulates with a SPC and also has a stair glide. Referral sent to [facility]. Patient is concerned about wound care supplies. I notified patient
that [facility] will supply wound care supplies to the patient. Plan is for the patient to return home with [facility]. CM to follow
--- NOTE | 2025-04-14 10:40 | CM ---
Pricing on Finerenone through the patient's [facility] is $0 copay.
Pricing on Entresto 24-26mg BID through the patient's [facility] is $6 copay for a 90 day mail order and $6 for a retail supply for a 90 day.
--- NOTE | 2025-04-14 11:31 | W.PN.ID1 ---
Date of Service
Date of Service: April 14, 2025
Today's Communication
Continue antibiotics. See below�
Assessment / Plan
Left lower extremity cellulitis
Multiple left lower extremity wounds
Lower extremity lymphedema
Leukocytosis
DM with neuropathy
HTN
HLD
Rosacea
Hx: CVA (1991)
Recommendations:
Continue cefazolin 2 g IV every 8 hours. At discharge, transition to cephalexin 500 mg p.o. q.6 hours, to continue through 04/20.
Maintain lower extremity compression with Osmin wrap.
Lower extremity elevation to level of heart at least 2 hours out of every 6.
Local care to lower extremity wounds
Little more to offer from a Infectious Diseases standpoint.
Will see again at your request.
����������������������������������������������������������
Chief Complaint
-: Cellulitis
Subjective / Review of Systems
Review of Systems: No Fever and No Chills
Vital Signs / Physical Exam
Vital Signs
Vital Signs
Temp Pulse Resp BP Pulse Ox
98.2 F 107 18 91/52 95
04/14/25 11:08 04/14/25 11:08 04/14/25 11:08 04/14/25 08:45 04/14/25 11:08
Physical Exam
Constitutional: No Acute Distress, Comfortable and Non-toxic
Eyes: Sclera Anicteric
Pulmonary: Non Labored
Gastrointestinal: Non Distended
Extremities: Edema (2+ bilateral lower extremities) and Erythema (Left lower extremity; improved from prior exams.)
Wound: Other (Left lower extremity wounds dressed. No strikethrough.)
Neurological: Awake and Alert
Psychological: Calm
Objective Data
Lab Data
Lab Results
04/14/25 02:48
04/14/25 02:48
APTT 90.5 Sec (23.4-35.0) H 04/12/25 03:12
Estimated Creat Clear 106 ml/min 04/14/25 02:48
Lactic Acid 1.5 mmol/L (0.7-2.0) 04/09/25 14:05
Total Bilirubin 0.9 mg/dl (0.2-1.3) 04/09/25 14:05
AST 28 U/L (17-59) 04/09/25 14:05
ALT 28 U/L (0-50) 04/09/25 14:05
Alkaline Phosphatase 87 U/L (38-126) 04/09/25 14:05
Most recent labs reviewed.
Micro Results:
04/09/25 15:23 Blood Culture - Preliminary
Blood/Venous No Growth in 4 days- Final report to follow
04/09/25 14:05 Blood Culture - Preliminary
Blood/Venous No Growth in 4 days- Final report to follow
04/10/25 03:26 MRSA Screen - Final
Nose Staph aureus MRSA
--- NOTE | 2025-04-14 11:36 | PTCARENOTE ---
chest xray completed.
--- NOTE | 2025-04-14 11:57 | PTCARENOTE ---
patient sitting in chair with family at bedside, patient called out c/o feeling dizzy, family sated; 'having trouble finding words', BP 68/p, Jane BEAVERS in room, returned patient back to bed with assist of 3 and walker, BP 98/64. holding am
Toprol.
[2025-04-14] MEDS: TOPROL XL PO (11:59)
--- NOTE | 2025-04-14 12:03 | W.PN.UPDATE ---
Update Note
Progress Note Update
CTSP urgently for hypotension in chair. He felt dizzy and SBP in the 60s. Patient able to stand and return to chair, he was dizzy again with standing, but then able to stand and pivot to bed. No LOC. No chest pain. We then had a talk all together,
with me, patient, his 2 family members and nursing to review admission thus far and medication changes. We reviewed tremendous diuresis thus far and that this likely precipitated orthostasis. BP improved to 98/56 upon return to bed. If patient
becomes symptomatic or if BP drops again then will give IVFs. 31 min critical care time including face to face with patient and family.
[2025-04-14 12:12] LABS: Glucose - Point of Care 313 mg/dl (70-99)
[2025-04-14] MEDS: NOVOLOG FLEXPEN-LOW RESISTANCE 4 UNITS SC (12:12)
[2025-04-14 12:42] LABS: Glucose - Point of Care 261 mg/dl (70-99)
--- NOTE | 2025-04-14 13:07 | W.PN.HOSP.TC ---
Today's Communication/Plan
-
see plan
Assessment / Plan
Assessment / Plan
Gen: NAD, Awake and alert, NCAT
Eyes: EOMI, PERRLA, no scleral icterus.
Neck: supple.
CV: RRR, +S1/S2, no m/r/g.
Resp: CTAB, no rales, wheezes, or rhonchi.
Abd: +BS, soft, NT, ND
Skin: No rashes.
Neuro: CN 2-12 intact, non-focal.
Psych: Normal mood and affect.
04/09/25 15:23 Blood/Venous Blood Culture - Preliminary
No Growth in 4 days- Final report to follow
04/09/25 14:05 Blood/Venous Blood Culture - Preliminary
No Growth in 4 days- Final report to follow
04/10/25 03:26 Nose MRSA Screen - Final
Staph aureus MRSA
B/L LE ABIs:
Right leg: DRAGAN within normal limits measuring 1.09. TBI 0.83. Multiphasic pedal flow.
Left leg: DRAGAN measures 1.41, possibly artifactually elevated. TBI unremarkable measuring 0.74. Multiphasic pedal flow.
CXR 04/13/25: Mild right lower lobe atelectasis versus scarring. Probably stable. Elevation of the right hemidiaphragm. Stable considering the increased inspiration.
Echo: TDS. EF 40-45%, nl RV sz/fxn, mild MR
Acute LLE cellulitis:
-in the setting of chronic B/L LE wounds
-cellulitis is related to diabetes mellitus
-Leukocytosis has resolved
-was on IV Zosyn, now on Ancef as per ID
-LE compression, wound care
Atrial Flutter with RVR:
-echo above
-was on Cardizem gtt, now off
-was on heparin gtt, now off
-cont Eliquis/BB
Acute on Chronic HFrEF
-was diuresed with IV Lasix, now transitioned to PO Lasix
-had orthostatic hypotension today (may need to give IVFs if orthostatis persists)
-Continue newly started Entresto
-cont BB/Aldactone
-Given current lower extremity wounds, not felt to be good SGLT2 inhibitor candidate
DM2 with diabetic neuropathy:
-a1c 7.1%
-currently pt ONLY on low-res SSI (for unclear reasons) despite being on 64U Toujeo WORM RAISER
-resume long-acting insulin at 32U as pt does not comply with diabetic diet at home
-change SSI to hi-res
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
-cont diabetic diet
Other problems:
Hypokalemia, resolved
Hematuria, resolved, outpt cysto as per Urology
HLD: cont statin
Essential HTN: cont Entresto/BB/aldactone with caution with orthostatic hypotension as above
h/o CVA (1991): cont Eliquis
Sacral/coccyx redness stage 1 pressure injury vs MASD
FULL/Eliquis
Total time spent on today's encounter was 50 minutes which included time spent in counseling the patient/family regarding diagnosis and treatment plan as listed above, goals of care, and symptom management. Case was discussed with nursing staff,
specialists, and care coordinators/case management. All labs and imaging personally reviewed by me. Remainder the time spent in detailed review of previous records, lab data, imaging, and other medical provider documentation.
Anticipated Discharge: 24 - 48 hours
Subjective/Interval History
-
Date of Service: April 14, 2025
No new complaints.
Objective Data
-
Labs:
Laboratory Results
04/14/25
02:48
WBC 10.2
Hgb 15.0
Hct 45.9
Plt Count 234
Sodium 134 L
Potassium 3.5
Chloride 89 L
Carbon Dioxide 38 H
BUN 25 H
Creatinine 0.8
Glucose 245 H
Calcium 9.4
Vital Signs:
Vital Signs
Temp Pulse Resp BP Pulse Ox
98.2 F 107 18 91/52 95
04/14/25 11:08 04/14/25 11:59 04/14/25 11:08 04/14/25 11:59 04/14/25 11:08
I&O
04/13/25 04/14/25 04/15/25
06:59 06:59 06:59
Intake Total 510 / 510 150 / 150
Output Total 2049 / 2049 2500 / 2500 250 / 250
Balance -1540 / -1540 -2350 / -2350 -250 / -250
[2025-04-14 17:46] LABS: Glucose - Point of Care 226 mg/dl (70-99)
[2025-04-14] MEDS: NOVOLOG FLEXPEN-HIGH RESISTANCE 4 UNITS SC (17:53)
[2025-04-14 22:34] LABS: Glucose - Point of Care 202 mg/dl (70-99)
[2025-04-14] MEDS: TOPROL XL 75 MG PO (22:37)
[2025-04-14] MEDS: LANTUS 0.32 UNITS SC (22:41)
[2025-04-15] VITALS (14 sets, daily range): BP systolic 85–152; BP diastolic 51–137; PULSE 106; BMI 32.0
[2025-04-15] MEDS: ANCEF 10 IV ×3 (03:05→18:16)
[2025-04-15 03:32] LABS: Hematocrit 43.9 % (39.0-52.0); Hemoglobin 14.2 g/dL (13.0-18.0); Mean Corp Hgb Conc. 32.3 g/dL (33.0-37.0); Mean Corpuscular Volume 85.1 fL (80.0-94.0); Platelet Count 242 10^3/uL (130-400); Red Cell Dist. Width 13.9 % (11.5-14.5)
--- NOTE | 2025-04-15 03:51 | PTCARENOTE ---
Pt. A-fib on the monitor, rate mostly 110's but down to the 80's at times post Toprol administration. VSS. Back and forth between bed and chair frequently this shift, voiding in urinal without difficulty. Complaining of buttock skin discomfort,
existing foam changed, St. I with boggy skin surrounding assessed. Large sacral heart shaped foam placed, air cushion used on chair - pt. expresses much relief. Will initiate turning schedule.
[2025-04-15 04:01] LABS: Blood Urea Nitrogen 30 mg/dl (9-20); Calcium 9.5 mg/dl (8.4-10.2); Chloride 89 mmol/L (98-107); Estimated Creatinine Clearance 107 ml/min; Glucose 244 mg/dl (70-99); Potassium 3.8 mmol/L (3.5-5.1); Sodium 133 mmol/L (135-145); eGFR > 60.00
[2025-04-15 04:20] LABS: Carbon Dioxide 40 mmol/L (22-30)
--- NOTE | 2025-04-15 05:40 | DOWNTIME ---
There was a [employer] Client Technical Testing Engineer Downtime on 04/15/2025 from 0100 to 04/15/2025 at 0220. Downtime documentation of patient's care, including medication administrations, has been reconciled in the electronic record per guidelines. Refer to the
patient's paper chart under the miscellaneous tab to see printed paper medication records and downtime forms.
[2025-04-15 08:12] LABS: Glucose - Point of Care 178 mg/dl (70-99)
--- NOTE | 2025-04-15 08:30 | PTCARENOTE ---
Assumed care of pt from prev nsg shift; Pt AAOx3 w/no c/o CP or SOB. Pt OOB to CH this AM. Pt does c/o of 'mild' buttock pain relieved by new chair air cushion be placed & sacral foam dressing over stage 1 pressure ulcer. Pt's VSS w/HR in the low
100's, aware, & BP 130/60 this AM. Pt is ST on telemetry monitoring this AM. Discussed plan of care for the day w/pt. Pt w/call sky within reach & no addtl needs at this time.
[2025-04-15] MEDS: NOVOLOG FLEXPEN-HIGH RESISTANCE 2 UNITS SC (08:48)
[2025-04-15] MEDS: TOPROL XL 75 MG PO (08:49)
[2025-04-15] MEDS: ENTRESTO 24 MG/26 MG 1 TAB PO (08:49)
[2025-04-15] MEDS: HYDROPHOR 1 APPLIC TOPICAL (08:49)
[2025-04-15] MEDS: SENOKOT-S 1 TABLET PO ×2 (08:49→20:30)
[2025-04-15] MEDS: LASIX 40 MG PO (08:49)
[2025-04-15] MEDS: ELIQUIS 5 MG PO ×2 (08:49→20:29)
[2025-04-15] MEDS: DESENEX/MITRAZOL/ZEASORB 1 APPLIC TOPICAL ×2 (08:50→20:29)
[2025-04-15] MEDS: ALDACTONE 25 MG PO (08:50)
[2025-04-15] MEDS: PRANDIN 2 MG PO ×3 (08:57→18:15)
--- NOTE | 2025-04-15 09:57 | CM ---
Pricing on Farxiga 10mg for a 30 day supply through the patient's [facility] is $6 a month
Jardiance 10mg for a 30 day supply is $6 a month
--- NOTE | 2025-04-15 11:15 | W.PN.HOSP.TC ---
Today's Communication/Plan
-
see bold
Assessment / Plan
Assessment / Plan
Gen: NAD, Awake and alert, NCAT
Eyes: EOMI, PERRLA, no scleral icterus.
Neck: supple.
CV: remains RRR, +S1/S2, no m/r/g.
Resp: remains CTAB, no rales, wheezes, or rhonchi.
Abd: remains +BS, soft, NT, ND
Skin: C/D/I dressings on both LEs
Neuro: CN 2-12 intact, non-focal.
Psych: Normal mood and affect.
04/09/25 15:23 Blood/Venous Blood Culture - Preliminary
No Growth in 4 days- Final report to follow
04/09/25 14:05 Blood/Venous Blood Culture - Preliminary
No Growth in 4 days- Final report to follow
04/10/25 03:26 Nose MRSA Screen - Final
Staph aureus MRSA
B/L LE ABIs:
Right leg: DRAGAN within normal limits measuring 1.09. TBI 0.83. Multiphasic pedal flow.
Left leg: DRAGAN measures 1.41, possibly artifactually elevated. TBI unremarkable measuring 0.74. Multiphasic pedal flow.
CXR 04/13/25: Mild right lower lobe atelectasis versus scarring. Probably stable. Elevation of the right hemidiaphragm. Stable considering the increased inspiration.
Echo: TDS. EF 40-45%, nl RV sz/fxn, mild MR
Acute LLE cellulitis:
-in the setting of chronic B/L LE wounds
-cellulitis is related to diabetes mellitus
-Leukocytosis has resolved
-was on IV Zosyn, now on Ancef as per ID. Can d/c on Keflex through 04/20/25.
-LE compression, wound care
Atrial Flutter with RVR:
-echo above
-was on Cardizem gtt, now off
-was on heparin gtt, now off
-cont Eliquis/BB
Acute on Chronic HFrEF
-was diuresed with IV Lasix, now transitioned to PO Lasix
-had orthostatic hypotension on 04/14/25, check orthostatic VS
-Continue newly started Entresto
-cont BB/Aldactone
-Given current lower extremity wounds, not felt to be good SGLT2 inhibitor candidate
DM2 with diabetic neuropathy:
-a1c 7.1%
-currently pt ONLY on low-res SSI (for unclear reasons) despite being on 64U Toujeo MEDICAL DOSIMETRIST
-cont long-acting insulin at 32U as pt does not comply with diabetic diet at home
-start premeal aspart 5U
-cont hi-res SSI
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
-cont diabetic diet
Other problems:
Hypokalemia, resolved
Hematuria, resolved, outpt cysto as per Urology
HLD: cont statin
Essential HTN: cont Entresto/BB/aldactone with caution with orthostatic hypotension as above
h/o CVA (1991): cont Eliquis
Sacral/coccyx redness stage 1 pressure injury vs MASD
FULL/Eliquis
Anticipated Discharge: Within 24 hours
Subjective/Interval History
-
Date of Service: April 15, 2025
No new complaints.
Objective Data
-
Labs:
Laboratory Results
04/15/25
03:23
WBC 11.0 H
Hgb 14.2
Hct 43.9
Plt Count 242
Sodium 133 L
Potassium 3.8
Chloride 89 L
Carbon Dioxide 40 H
BUN 30 H
Creatinine 0.8
Glucose 244 H
Calcium 9.5
Vital Signs:
Vital Signs
Temp Pulse Resp BP Pulse Ox
97.9 F 103 18 130/60 95
04/15/25 08:47 04/15/25 08:43 04/15/25 08:47 04/15/25 08:43 04/15/25 08:47
I&O
04/14/25 04/15/25 04/16/25
06:59 06:59 06:59
Intake Total 150 / 150 240 / 240
Output Total 2500 / 2500 1050 / 1050
Balance -2350 / -2350 -810 / -810
--- NOTE | 2025-04-15 11:26 | CM ---
Chart reviewed. Patient is independent of ADLS, lives with his who is in [facility], 2 [address], 2 [address]BI[address], ambulates with a SPC and also has a stair glide. Patients daughter and son are in the process of renovating the 1st floor to give the parents a
1st floor set up. Referral sent to [facility]. Patient is concerned about wound care supplies. I notified patient that [facility] will supply wound care supplies to the patient. Patient will need a script for a RW to go home. Plan is for the patient to
return home with [facility]. CM to follow
[2025-04-15] MEDS: FARXIGA 10 MG PO (11:37)
[2025-04-15] MEDS: FLUSH (NSS) 2 FLUSH IV ×2 (11:37→18:16)
[2025-04-15 12:07] LABS: Glucose - Point of Care 222 mg/dl (70-99)
[2025-04-15] MEDS: NOVOLOG FLEXPEN-HIGH RESISTANCE 4 UNITS SC (12:30)
[2025-04-15] MEDS: NOVOLOG FLEXPEN 5 UNITS SC (12:31)
--- NOTE | 2025-04-15 12:57 | PN.DE.MGMTRT ---
Insulin Management
- -
04/15/2025 Diabetes Management Consult
Patient admitted 04/09 with leg redness, bilateral swelling - acute on chronic CHF. Diabetes management consult 04/15. PMH neuropathy, HTN, HLD, colon CA 1991, diabetes, chf. Prior to admission was taking Trulicity 3 mg on Monday, Toujeo 64 units
@ HS, Repaglinide 2 mg AC. A1C on admission 7.1%, cr today .8, eGFR > 60.
Patient is awake alert and oriented OOB in chair, able to discuss diabetes care. States he has had diabetes since 1984, follows with primary doctor who manages his diabetes. He has the [employer] 2 CGM for glucose monitoring.
Glucose range yesterday 202 to 264, patient was receiving corrective insulin AC and lantus 32 units @ hs.
04/15 Fasting glucose 244, will increase hs lantus to 35 units, resume repaglinide 2 mg AC and start Farxiga 10 mg daily. Discussed benefits of Farxiga and cost, patient is receptive.
Will follow for further needed adjustments.
Discussed with nurse.
Diabetes History
- -
Type of Diabetes: 2
Pre-Admission Diabetes Regimen
04/15/25
03:23
Creatinine 0.8
Lab Results
Hemoglobin A1c 7.1 % (4.0-5.6) H 04/10/25 03:26
Insulin Pump Settings
IP Diabetes Regimen
04/14/25 04/14/25 04/15/25
17:45 22:33 03:23
Glucose 244 H
POC Glucose 226 H 202 H
04/15/25 04/15/25
08:11 12:06
Glucose
POC Glucose 178 H 222 H
Meal type: Breakfast
Meal type: Lunch
Amount consumed: 100%
Amount consumed: 80%
Patient Education
--- NOTE | 2025-04-15 15:50 | W.PN.CARDCBS ---
Today's Communication / Plan
-
Increase metoprolol for better rate control of atrial flutter
Impression / Plan
-
PCP: Dr. Giles
Credentialing Manager: Dr. Tyson
Impression:
Admitted with rapid atrial flutter and LLE cellulitis 04/09/2025
Newly diagnosed typical atrial flutter with RVR and atrial fibrillation of unclear duration
Acute on chronic HFrEF
h/o paroxysmal atrial tachycardia
h/o CM with EF reduced to 40-45% by echo 12/22/2023, stable at 40-45% by echo 04/10/25
Chronic LE edema, lymphedema
LLE cellulitis
Hx colon cancer with prior colon resection
Hyponatremia
Hypertension
Hyperlipidemia
DM2
Peripheral neuropathy
Chronic back pain
Echo 07/24/2018: EF 55-60%, RV appears dilated and hypokinetic, mild MR, trace AI, trace TR, mild dilation of aortic root 4.0 cm at sinus of Valsalva
Echo 12/22/2023: Technically difficult study. mod LVH, mild global hypokinesis with marked paradoxical septal motion. EF 40-45%, no significant valve disease, Compared to previous echo 07/24/2018, the LVEF appears to have decreased from 55% to 40-45%
Echo 04/10/2025: Technically difficult study, Lumason used, EF 40 to 45%, mild global hypokinesis, mild MAC, mild MR, mildly dilated aortic root
Plan:
-Weight is down ~20 lbs since admission with Lasix 40 mg IV BID and transition to 40 mg p.o. Lasix daily.
-Cre stable 0.8
-EF 40-45% by echo 04/10/25, his EF had been similar in 11/2023.
-Outpatient dose of lisinopril was changed to Entresto 24/26 mg BID
-New to Toprol XL and Farxiga
-Outpatient dose of spironolactone has been held for hypotension
-Troponin was 0.03 and EF stable on echo. Patient was not able to complete stress test previously due to orthopedic limitations with being supine for imaging, but current plan is to manage as a tachycardia mediated CM. Pending improvement in EF with
rate/rhythm control would consider ischemic evaluation as an outpatient.
-New to Toprol XL. Increase to 100 mg BID to help with rate control of atrial flutter.
-Patient with h/o paroxysmal Atach, but now with atrial flutter. Additional rhythm control options to be considered as an outpatient, likely a CV following 3-4 weeks of OAC. If patient needs or desires for CV sooner then he would need CHRISTINA/CV.
-New to Eliquis 5 mg BID (age 79, Cre 0.8, wt 121 kg)
-Plan is for home with VN to help with LE wound care
Progress Note - Credentialing Manager
Subjective
Date of Service: April 15, 2025
No acute overnight events. No chest discomfort or palpitations. Tells me his lower extremity edema significantly improved.
Objective
Labs:
04/15/25 03:23
04/15/25 03:23
Labs
Hgb 14.2 g/dL (13.0-18.0) 04/15/25 03:23
Hct 43.9 % (39.0-52.0) 04/15/25 03:23
Plt Count 242 10^3/uL (130-400) 04/15/25 03:23
APTT 90.5 Sec (23.4-35.0) H 04/12/25 03:12
Sodium 133 mmol/L (135-145) L 04/15/25 03:23
Potassium 3.8 mmol/L (3.5-5.1) 04/15/25 03:23
BUN 30 mg/dl (9-20) H 04/15/25 03:23
Creatinine 0.8 mg/dL (0.7-1.3) 04/15/25 03:23
Glucose 244 mg/dl (70-99) H 04/15/25 03:23
Vital Signs and I&O:
Vital Signs
Temp Pulse Resp BP Pulse Ox
97.6 F 106 18 107/55 95
04/15/25 14:50 04/15/25 15:00 04/15/25 14:50 04/15/25 14:53 04/15/25 14:53
Vital Signs
Temp Pulse Resp BP Pulse Ox
97.6 F 106 18 107/55 95
04/15/25 14:50 04/15/25 15:00 04/15/25 14:50 04/15/25 14:53 04/15/25 14:53
Intake & Output
04/13/25 04/14/25 04/15/25 04/16/25
06:59 06:59 06:59 06:59
Intake Total 510 / 510 150 / 150 240 / 240 480 / 480
Output Total 2049 / 2049 2500 / 2500 1050 / 1050 600 / 600
Balance -1540 / -1540 -2350 / -2350 -810 / -810 -120 / -120
Physical Exam
Physical Exam
Gen: NAD, AAOx3, OOB to chair
HEENT: NC/AT, sclera anicteric
Neck: No JVD
CV: Irregular, NL s1/s2
Lungs: CTAB
Abd: S/ND
Ext: Non pitting LE edema with Osmin wraps in place
Skin: Warm, dry
Neuro: Non-focal
[2025-04-15 16:32] LABS: Glucose - Point of Care 147 mg/dl (70-99)
[2025-04-15] MEDS: NOVOLOG FLEXPEN-HIGH RESISTANCE 1 UNITS SC (18:15)
[2025-04-15] MEDS: ENTRESTO 24 MG/26 MG PO (20:29)
[2025-04-15] MEDS: TOPROL XL 100 MG PO (20:29)
--- NOTE | 2025-04-15 21:50 | PTCARENOTE ---
Patient received at change of shift resting in the chair. Atrial flutter on telemetry. Oxygen saturation 95% on room air. Patient denies pain at this time. Wound care completed as ordered. Plan of care discussed. Call sky within reach. Care ongoing.
[2025-04-15 22:26] LABS: Glucose - Point of Care 103 mg/dl (70-99)
[2025-04-15] MEDS: LANTUS 0.35 UNITS SC (22:40)
[2025-04-16] VITALS (9 sets, daily range): BP systolic 89–122; BP diastolic 56–84; PULSE 86–104; BMI 31.7
[2025-04-16] MEDS: ANCEF 10 IV ×2 (01:27→09:43)
[2025-04-16 07:44] LABS: Glucose - Point of Care 113 mg/dl (70-99)
[2025-04-16] MEDS: NOVOLOG FLEXPEN-HIGH RESISTANCE 1 UNITS SC (07:44)
--- NOTE | 2025-04-16 07:52 | PN.DE.MGMTRT ---
Insulin Management
- -
04/16/2025 Diabetes Management Consult Follow up
Patient admitted 04/09 with leg redness, bilateral swelling - acute on chronic CHF. Diabetes management consult 04/15. PMH neuropathy, HTN, HLD, colon CA 1991, diabetes, chf. Prior to admission was taking Trulicity 3 mg on Monday, Toujeo 64 units
@ HS, Repaglinide 2 mg AC. A1C on admission 7.1%, cr today .8, eGFR > 60.
Patient is awake alert and oriented OOB in chair, able to discuss diabetes care. States he has had diabetes since 1984, follows with primary doctor who manages his diabetes. He has the [employer] 2 CGM for glucose monitoring.
Glucose range yesterday 103 to 222 (222 before repaglinide restarted) Lantus increased to 35 units @ hs.
04/16 Fasting glucose 113, will continue hs lantus 35 units, with repaglinide 2 mg AC and Farxiga 10 mg daily. Reduced High corrective to low corrective. Discussed benefits of Farxiga and cost, patient is receptive.
Will follow for further needed adjustments.
Discussed with nurse.
Diabetes History
- -
Type of Diabetes: 2 requiring insulin
Pre-Admission Diabetes Regimen
Lab Results
Hemoglobin A1c 7.1 % (4.0-5.6) H 04/10/25 03:26
Insulin Pump Settings
IP Diabetes Regimen
04/15/25 04/15/25 04/15/25
08:11 12:06 16:31
POC Glucose 178 H 222 H 147 H
04/15/25 04/16/25
22:23 07:43
POC Glucose 103 H 113 H
Meal type: Dinner
Meal type: Breakfast
Amount consumed: 100%
Amount consumed: 100%
Patient Education
--- NOTE | 2025-04-16 09:15 | W.PN.CARDCBS ---
Addendum entered and electronically signed by Rob Post MD 04/16/25 17:42:
I saw and examined the patient on morning rounds.
The Head Packager's note was reviewed and I agree with the note.
Comment: Briefly, 79-year-old man presenting with acute heart failure with reduced ejection fraction and new diagnosis of typical atrial flutter with rapid ventricular response
With IV diuresis his weight is down significantly and overall appears euvolemic on exam
Plan to discharge on oral Lasix 40 mg daily
GDMT for HFrEF� spironolactone, SGLT2, metoprolol and Entresto
In regards to his atrial flutter, heart rate has been relatively well-controlled around 100 bpm
Continue Toprol-XL 100 mg twice daily
Add amiodarone for adjunct rate control
Continue Eliquis for risk reduction of cardioembolic stroke
We will arrange for outpatient cardioversion if he remains in atrial flutter at follow-up
Stable for discharge from my perspective
Original Note:
Today's Communication / Plan
-
Called CM and they are going to eval with PT once more prior to d/c for home with VN vs rehab stay
Adding amiodarone 200 mg BID for adjunct rate control
Decreasing spironolactone to 12.5 mg daily
Lasix 40 mg PO daily
Impression / Plan
-
PCP: Dr. Giles
Sample Puller: Dr. Tyson
Impression:
Admitted with rapid atrial flutter and LLE cellulitis 04/09/2025
Newly diagnosed typical atrial flutter with RVR and atrial fibrillation of unclear duration
Acute on chronic HFrEF
h/o paroxysmal atrial tachycardia
h/o CM with EF reduced to 40-45% by echo 12/22/2023, stable at 40-45% by echo 04/10/25
Chronic LE edema, lymphedema
LLE cellulitis
Hx colon cancer with prior colon resection
Hyponatremia
Hypertension
Hyperlipidemia
DM2
Peripheral neuropathy
Chronic back pain
Echo 07/24/2018: EF 55-60%, RV appears dilated and hypokinetic, mild MR, trace AI, trace TR, mild dilation of aortic root 4.0 cm at sinus of Valsalva
Echo 12/22/2023: Technically difficult study. mod LVH, mild global hypokinesis with marked paradoxical septal motion. EF 40-45%, no significant valve disease, Compared to previous echo 07/24/2018, the LVEF appears to have decreased from 55% to 40-45%
Echo 04/10/2025: Technically difficult study, Lumason used, EF 40 to 45%, mild global hypokinesis, mild MAC, mild MR, mildly dilated aortic root
Plan:
-Patient weighed 291 lbs on admission and weight is down to 266 lbs on 04/16/2025, weight trend reviewed by me. Patient is below previous dry weight and has had symptomatic improvement in LE edema
-Cont Lasix 40 mg PO daily upon d/c, patient was not taking a loop diuretic prior to admission
-EF 40-45% by echo 04/10/25, his EF had been similar in 11/2023.
-Outpatient dose of lisinopril was changed to Entresto 24/26 mg BID
-New to Toprol XL and dose has been increased to 100 mg BID this admission to help with rate control of atrial flutter
-Outpatient dose of spironolactone 25 mg daily was held on admission due to hypotension and later restarted, but will lower dose to 12.5 mg daily on 04/16/2025, orders placed by me
-Of note, patient could be considered for eventual transition to finerenone 10 mg daily and his co-pay would be $0/month.
-Plan was to start Farxiga 10 mg daily as an outpatient once improved from an infection standpoint, but DM ASSOCIATE JUVENILE COURT JUDGE started on 04/15/2025.
-Troponin was 0.03 and EF stable on echo. Patient was not able to complete stress test previously due to orthopedic limitations with being supine for imaging, but current plan is to manage as a tachycardia mediated CM. Pending improvement in EF with
rate/rhythm control would consider ischemic evaluation as an outpatient.
-Patient with h/o paroxysmal Atach, but now with atrial flutter. Cardizem gtt initially and now with Toprol XL as noted above.
-Adding amiodarone 200 mg BID on 04/16/25 AM for adjunct rate control. Additional rhythm control options to be considered as an outpatient, likely a CV following 3-4 weeks of OAC. If patient needs or desires for CV sooner then he would need CHRISTINA/CV.
-New to Eliquis 5 mg BID (age 79, Cre 0.8, wt 121 kg)
-Plan is for home with VN to help with LE wound care, but patient is reporting that he has deteriorated since last PT/OT session and patient is asking for another eval prior to returning home with VN.
-Patient is stable for d/c to home with medication changes as outlined, will update d/c med list and e-scribe new cardiac meds
Progress Note - Sample Puller
Subjective
Date of Service: April 16, 2025
He says he is not steady on his feet with the walker
Objective
Labs:
04/15/25 03:23
04/15/25 03:23
Labs
Hgb 14.2 g/dL (13.0-18.0) 04/15/25 03:23
Hct 43.9 % (39.0-52.0) 04/15/25 03:23
Plt Count 242 10^3/uL (130-400) 04/15/25 03:23
APTT 90.5 Sec (23.4-35.0) H 04/12/25 03:12
Sodium 133 mmol/L (135-145) L 04/15/25 03:23
Potassium 3.8 mmol/L (3.5-5.1) 04/15/25 03:23
BUN 30 mg/dl (9-20) H 04/15/25 03:23
Creatinine 0.8 mg/dL (0.7-1.3) 04/15/25 03:23
Glucose 244 mg/dl (70-99) H 04/15/25 03:23
Vital Signs and I&O:
Vital Signs
Temp Pulse Resp BP Pulse Ox
97.9 F 120 20 108/73 94
04/16/25 06:57 04/16/25 08:00 04/16/25 06:57 04/16/25 06:59 04/16/25 06:57
Vital Signs
Temp Pulse Resp BP Pulse Ox
97.9 F 120 20 108/73 94
04/16/25 06:57 04/16/25 08:00 04/16/25 06:57 04/16/25 06:59 04/16/25 06:57
Intake & Output
04/14/25 04/15/25 04/16/25 04/17/25
06:59 06:59 06:59 06:59
Intake Total 150 / 150 240 / 240 480 / 480
Output Total 2500 / 2500 1050 / 1050 1100 / 1100
Balance -2350 / -2350 -810 / -810 -620 / -620
Physical Exam
Physical Exam
GEN: AAOx3
LUNGS: RA. Decreased BS left base
CV: Atrial flutter on tele. Irreg irreg
EXT: B/L LE BASIL wraps to the knee, +1 B/L left worse than right LE edema.
NEURO: Gross non-focal
SKIN: No rash
[2025-04-16] MEDS: ELIQUIS 5 MG PO (09:26)
[2025-04-16] MEDS: FARXIGA 10 MG PO (09:26)
[2025-04-16] MEDS: ENTRESTO 24 MG/26 MG 1 TAB PO (09:26)
[2025-04-16] MEDS: TOPROL XL 100 MG PO (09:26)
[2025-04-16] MEDS: SENOKOT-S 1 TABLET PO (09:26)
[2025-04-16] MEDS: DESENEX/MITRAZOL/ZEASORB 1 APPLIC TOPICAL (09:27)
[2025-04-16] MEDS: HYDROPHOR 1 APPLIC TOPICAL (09:27)
[2025-04-16] MEDS: LASIX 40 MG PO (09:28)
[2025-04-16] MEDS: PRANDIN 2 MG PO ×2 (09:28→12:48)
--- NOTE | 2025-04-16 09:30 | PTCARENOTE ---
Assumed care of pt from prev nsg shift; Pt AAOx3 w/no c/o CP or SOB. Pt OOB to CH/amb to BR w/RW this AM. Pt's VSS w/HR in the low 100's, MD aware, & BP 108/73 this AM. Pt is AFlutter on telemetry monitoring this AM. Discussed plan of care for the
day w/pt, including poss D/C soon. Pt questioned D/C w/LE wounds & inability to prepare meals at home. This RN explained to pt that he wouldn't be kept in the hospital until his cellulitis was completely healed, that he's had a week of IV ABX, would
likely be transitioned to oral ABX, & then would have VN coming to his for wound care. RE: meals, this RN did discuss w/pt available options such as Meals on Wheels & his family, who do live in the area assisting pt & his spouse. Pt then also
expressing concern that he is having difficulty get up on his own. Pt has been up to the BR w/his RW unassisted twice this AM. Spoke w/Case Mgt & MD & PT reconsulted for pt. Pt w/call sky within reach & no addtl needs at this time.
[2025-04-16] MEDS: ALDACTONE 12.5 MG PO (09:44)
[2025-04-16] MEDS: FLUSH (NSS) 2 FLUSH IV (09:45)
[2025-04-16] MEDS: PACERONE 200 MG PO (09:48)
[2025-04-16] MEDS: ALDACTONE PO (10:23)
--- NOTE | 2025-04-16 11:08 | W.PN.HOSP.TC ---
Addendum entered and electronically signed by Marcial Fitzgerald MD 04/16/25 11:53:
Total time spent on d/c = 38 min. This included today's physical exam, progress note, review of laboratory and diagnostic data, preparation of discharge documents and prescriptions, and discussions about the pt's hospital course and discharge plan
with the patient and other medical director occupational health involved in the patient's care.
Original Note:
Today's Communication/Plan
-
see plan
Assessment / Plan
Assessment / Plan
Gen: NAD, Awake and alert, NCAT
Eyes: EOMI, PERRLA, no scleral icterus.
Neck: supple.
CV: continues to remain RRR, +S1/S2, no m/r/g.
Resp: continues to remain CTAB, no rales, wheezes, or rhonchi.
Abd: continues to remain +BS, soft, NT, ND
Skin: C/D/I dressings on both LEs
Neuro: CN 2-12 intact, non-focal.
Psych: Normal mood and affect.
04/09/25 15:23 Blood/Venous Blood Culture - Preliminary
No Growth in 4 days- Final report to follow
04/09/25 14:05 Blood/Venous Blood Culture - Preliminary
No Growth in 4 days- Final report to follow
04/10/25 03:26 Nose MRSA Screen - Final
Staph aureus MRSA
B/L LE ABIs:
Right leg: DRAGAN within normal limits measuring 1.09. TBI 0.83. Multiphasic pedal flow.
Left leg: DRAGAN measures 1.41, possibly artifactually elevated. TBI unremarkable measuring 0.74. Multiphasic pedal flow.
CXR 04/13/25: Mild right lower lobe atelectasis versus scarring. Probably stable. Elevation of the right hemidiaphragm. Stable considering the increased inspiration.
Echo: TDS. EF 40-45%, nl RV sz/fxn, mild MR
Acute LLE cellulitis:
-in the setting of chronic B/L LE wounds
-cellulitis is related to diabetes mellitus
-Leukocytosis has resolved
-was on IV Zosyn, now on Ancef as per ID. Can d/c on Keflex through 04/20/25.
-LE compression, wound care
Atrial Flutter with RVR:
-echo above
-was on Cardizem gtt, now off
-was on heparin gtt, now off
-cont Eliquis/BB
-Amio started by cardiology
-outpt cardioversion as per discussion with cards
Acute on Chronic HFrEF
-was diuresed with IV Lasix, now transitioned to PO Lasix
-had orthostatic hypotension on 04/14/25, partial orthostatic VS on 04/15/25 NEG
-Continue newly started Entresto
-cont BB/Aldactone
-Given current lower extremity wounds, not felt to be good SGLT2 inhibitor candidate
DM2 with diabetic neuropathy:
-a1c 7.1%
-cont lantus 35U and Farxiga/Prandin as per diabetes PLATING DEPARTMENT HELPER
-cont hi-res SSI
-cont diabetic diet
Other problems:
Hypokalemia, resolved
Hyponatremia, mild
Hematuria, resolved, outpt cysto as per Urology
HLD: cont statin
Essential HTN: cont Entresto/BB/aldactone with caution with orthostatic hypotension as above
h/o CVA (1991): cont Eliquis
Sacral/coccyx redness stage 1 pressure injury vs MASD
FULL/Eliquis
Medically cleared for d/c, case management aware.
Anticipated Discharge: Today
Subjective/Interval History
-
Date of Service: April 16, 2025
One episode of diarrhea overnight. AGRAWAL but not at rest. Denies CP.
Objective Data
-
Vital Signs:
Vital Signs
Temp Pulse Resp BP Pulse Ox
97.7 F 120 19 108/73 93
04/16/25 10:56 04/16/25 08:00 04/16/25 10:56 04/16/25 06:59 04/16/25 10:56
I&O
04/15/25 04/16/25 04/17/25
06:59 06:59 06:59
Intake Total 240 / 240 480 / 480
Output Total 1050 / 1050 1100 / 1100
Balance -810 / -810 -620 / -620
--- NOTE | 2025-04-16 11:11 | CM ---
Chart reviewed. Patient independent of ADLS, lives with his in a 2 STH, 2 GABBIE,, ambulates with a SPC. Patient appears to be unsteady with with his walker. PT evaluation recommending SNF. Patient with b/l le wounds. Patient's being
discharged from [facility] today. Patient's 1st floor being renovated to allow for bedroom with full bathroom. Patient's to stay with a friend. Patient would prefer to go to rehab closest to his daughter in [place]. Referrals sent to [facility], [facility] and [facility]. Plan is for the patient to go to SNF
[2025-04-16 12:15] LABS: Glucose - Point of Care 95 mg/dl (70-99)
[2025-04-16 12:40] LABS: COVID-19 Antigen Negative (Negative)
--- NOTE | 2025-04-16 13:34 | W.DCSUMMARY ---
Discharge Summary
Discharge Data
Date of Admission: 04/09/25
Date of Discharge: 04/16/25
-
Pending Results: No
Hospital Course
Primary diagnoses:
Acute left lower extremity cellulitis in the setting of chronic bilateral lower extremity wounds
Atrial flutter with a rapid ventricular response
Acute on chronic heart failure with reduced ejection fraction
Secondary diagnoses:
Diabetic Mellitus with diabetic neuropathy
Hypokalemia
Hyponatremia
Hematuria
Hyperlipidemia
Essential hypertension
h/o cerebrovascular accident (1991)
Sacral/coccyx redness stage 1 pressure injury vs MASD
Consultants:
Cardiology
Diabetes nurse practitioner
Infectious disease
Imaging:
B/L LE ABIs:
Right leg: DRAGAN within normal limits measuring 1.09. TBI 0.83. Multiphasic pedal flow.
Left leg: DRAGAN measures 1.41, possibly artifactually elevated. TBI unremarkable measuring 0.74. Multiphasic pedal flow.
CXR 04/13/25: Mild right lower lobe atelectasis versus scarring. Probably stable. Elevation of the right hemidiaphragm. Stable considering the increased inspiration.
Echo: TDS. EF 40-45%, nl RV sz/fxn, mild MR
Acute LLE cellulitis: This was in the setting of chronic B/L LE wounds. The patient's cellulitis was related to diabetes mellitus. He had a leukocytosis that resolved. Patient was on IV Zosyn and then transition to Ancef as per infectious
disease. He was discharged on Keflex through 04/20/25. Patient had bilateral lower extremity compression was seen by wound care.
Atrial Flutter with RVR: Patient was initially on Cardizem and heparin drips and was transition to Eliquis and beta-luna. He was started on amiodarone prior to discharge. Echocardiogram above. He will have a cardioversion in the outpatient
setting.
Acute on Chronic HFrEF: Patient was diuresed with IV Lasix and then transition to oral Lasix. He was started on Entresto. Echocardiogram above. Beta-luna and Aldactone were continued. Given current lower extremity wounds, not felt to be good
SGLT2 inhibitor candidate.
Discharge Plan
-
Patient Disposition: Group Home/SNF
Discharge Diagnosis/Procedures: Acute left lower extremity cellulitis, atrial flutter with a rapid ventricular response, acute on chronic heart failure with reduced ejection fraction
Condition: Fair
Diet: 2 Gram Sodium and Restrict fluids to 48 oz
Activity: With assistance
Driving Restrictions: No driving
Blood Work: BMP in 1 week, script from PCP
Other Services: VN, PT and OT
Specialty Instructions: Weigh Daily- Call MD for wt gain/loss 3 lbs overnight/5 lbs in 1 week
Activity Restrictions/Additional Instructions:
Wound Care Instructions
Le wounds-clean with saline or Vashe wound cleanser, Aquaphor ointment to surrounding skin, adaptic (alginate after adaptic as needed for large amount of drainage), ABD pad, Kerlix wrap, change LLE twice a day and as needed for drainage, change RLE
daily and as needed for drainage. May reduce LLE to daily if drainage becomes small.
Miconazole powder to groin rash, between toes, affected areas twice a day.
Barrier ointment (i.e. Calazime) to coccyx/buttocks skin twice a day.
Pressure redistributing chair cushion (i.e. Air chair cushion).
Elevate heels off bed with pillows.
Frequent LE elevation.
Bilateral knee high Osmin wraps as tolerated; rewrap daily.
Follow up with plastic boat patcher (L upper ear mole).
Follow up at wound care center call for an appointment.
Instructions: *DCA Heart Failure Instructions
Referrals:
[facility] [Outside]
Referral Note: Report [phone]
Henri Pino MD [Active, Urology]
Referral Note: call to schedule 'cystoscopy' during April
Renato Giles MD [Family Provider, Internal Medicine] - in less than 1 week
Lana Sterling CRNP [Specified Professional Personl, Cardiology] - 04/22/25 2:00 pm
Referral Note: You have a cardiology follow-up appointment at the [place] office with Dr. Tyson's nurse practitioner, Lana. Please call with questions
Additional Discharge Medication Instructions: -Start taking amiodarone to help control the rate of your heart. Take amiodarone 200 mg twice daily for 1 month then reduce to 200 mg once daily thereafter. 2 separate prescriptions have been sent to
your pharmacy, one is for the twice daily dose and has 0 refills and the other is for the once daily dose and has refills.
-Start taking Toprol-XL 100 mg twice daily to help control the rate of your heart
-Start taking Eliquis 5 mg twice daily to reduce the risk of blood clot and stroke associated with atrial arrhythmia
-Stop taking aspirin
-Stop taking lisinopril
-Start taking Entresto 24/26 mg twice daily, this replaces lisinopril
-Take Lasix 40 mg daily to help control volume status with heart failure
-Reduce your dose of spironolactone to 12.5 mg (1/2 tablet of a 25 mg tablet) once daily
Prescriptions:
New
Eliquis 5 mg Tablet
5 mg PO BID Qty: 60 11RF
dapagliflozin propanediol 10 mg Tablet
10 mg PO DAILY Qty: 30 11RF
Entresto 24-26 mg Tablet
1 tab PO BID Qty: 60 11RF
furosemide 40 mg Tablet
40 mg PO DAILY Qty: 30 11RF
amiodarone [Pacerone] 200 mg Tablet
200 mg PO BID Qty: 60 0RF
metoprolol succinate 100 mg Tablet Extended Release 24 Hr
100 mg PO BID Qty: 60 11RF
spironolactone 25 mg Tablet
12.5 mg PO DAILY Qty: 30 11RF
amiodarone 200 mg tablet
200 mg PO DAILY Qty: 30 11RF
Insulin Glargine Lantus [Lantus] 35 UNITS
Subcutaneous Insulin Syringe [Syringe-Insulin] 0 UNIT
As Directed mls/hr SC HS
Ordered By: Marcial Fitzgerald MD
Last Taken: 04/15/25 22:40 0.35 mls
cephalexin 500 mg capsule
500 mg PO Q6H Qty: 1 0RF
Rx Instructions:
through 04/20/25
Continued
repaglinide 2 MG tablet
2 mg PO AC
atorvastatin 10 MG tablet
10 mg PO HS
calcium carbonate [Oyster Shell Calcium 500] 500 MG tablet
500 mg PO BID
Slow-Mag 71.5 mg Tablet,Delayed Release (Dr/Ec)
64 mg PO MEALS Qty: 0
bisacodyl 5 MG tablet,delayed release (DR/EC)
10 mg PO DAILY Qty: 0 0RF
docusate sodium 100 MG capsule
100 mg PO BIDPRN PRN (Reason: constipation)
fluticasone propionate 50 mcg/actuation [place],Suspension
2 spray INTRANASAL DAILY
dnohjqieorha-bplrturz-omsqwy Tablet
1 tab PO DAILY
cholecalciferol (vitamin D3) 25 mcg (1,000 unit) Tablet
25 mcg PO DAILY
Trulicity 3 mg/0.5 mL Pen Injector
3 mg SC SA
Fish Oil capsule
850 mg PO DAILY
Discontinued
gabapentin 300 MG capsule
300 mg PO HS
gabapentin 100 MG capsule
200 mg PO DAILY
aspirin 81 MG tablet,delayed release (DR/EC)
162 mg PO QPM
meloxicam 15 mg Tablet
15 mg PO HS
pseudoephedrine HCl 120 mg Tablet Extended Release
120 mg PO [id number] PRN (Reason: nasal decongestion)
spironolactone 25 mg Tablet
25 mg PO DAILY
lisinopril 5 mg Tablet
5 mg PO DAILY
metoprolol tartrate 25 mg Tablet
25 mg PO DAILY
insulin glargine U-300 conc [Toujeo SoloStar U-300 Insulin] 300 unit/mL (1.5 mL) Insulin Pen
64 unit SC HS
Discharge Orders:
Discharge Patient (As Directed); Ordered 04/16/25
Ordered By: Marcial Fitzgerald
Care Plan Goals
Care Plan Goals:
Problem: Readiness for enhanced knowledge related to diagnosis and treatment plan
Goal: Understand your diagnosis and treatment plan needs, including medications if applicable.
Instructions: Know your diagnosis, underlying causes and treatment plan options, including medications if applicable. Consult with your health care team to learn about your diagnosis and treatment plan, including medications if applicable.
Discharge Date and Time
Print Language: MONGOLIAN
--- NOTE | 2025-04-16 15:50 | PTCARENOTE ---
IV line & telemetry pack D/C'd. Pt assisted w/getting dressed & personal belongings packed up. Report called to Stephie at [facility] at [phone]. Pt picked up by [facility] & taken via wheelchair to the facility. Pt left w/personal belongings
including clothing, cell phone, & wet process miller.
== END 2025-04-16 15:50 | DRG 637 ==
LOC: IVU 15:57
PROVIDERS: Hospitalist; Internal Medicine Cardiovascular Disease; Physician Assistant; Registered Nurse; ADMITTING PHYSICIAN Internal Medicine; ATTENDING PHYSICIAN Internal Medicine; CONSULT PHYSICIAN Internal Medicine Infectious Disease; CONSULT PHYSICIAN Specialist; EMERGENCY PHYSICIAN Emergency Medicine; FAMILY PHYSICIAN Internal Medicine; OTHER PHYSICIAN Internal Medicine Cardiovascular Disease
DX: E11.628 Type 2 diabetes mellitus with other skin complications (principal); I50.23 Acute on chronic systolic (congestive) heart failure; L03.116 Cellulitis of left lower limb; I48.92 Unspecified atrial flutter; J98.11 Atelectasis; E87.1 Hypo-osmolality and hyponatremia; I11.0 Hypertensive heart disease with heart failure; I48.91 Unspecified atrial fibrillation; K59.00 Constipation, unspecified; Z79.4 Long term (current) use of insulin; Z79.82 Long term (current) use of aspirin; E78.00 Pure hypercholesterolemia, unspecified; E11.42 Type 2 diabetes mellitus with diabetic polyneuropathy; E87.6 Hypokalemia; R31.9 Hematuria, unspecified; Z86.73 Personal history of transient ischemic attack (TIA), and cerebral infarction without residual deficits; L89.151 Pressure ulcer of sacral region, stage 1; I95.1 Orthostatic hypotension; G89.29 Other chronic pain; Z85.038 Personal history of other malignant neoplasm of large intestine; Z90.49 Acquired absence of other specified parts of digestive tract; I89.0 Lymphedema, not elsewhere classified; E66.9 Obesity, unspecified; Z68.31 Body mass index [BMI] 31.0-31.9, adult; L71.9 Rosacea, unspecified; Z79.899 Other long term (current) drug therapy; Z11.52 Encounter for screening for COVID-19
CPT/HCPCS: 71046; 80048; 80053; 81003; 81015; 82962; 83036; 83605; 83735; 83880; 84443; 84484; 85025; 85027; 85730; 87040; 87070; 87147; 87811; 93005; 93306; 93922; 96361; 97163; 97167; 97530; 99285; Q9950

== ENCOUNTER → 2025-05-22 06:47 | Day surgery (SDC) | payer MEDICARE, BC, SELFPAY ==
[2025-05-22 09:59] LABS: Glucose - Point of Care 115 mg/dl (70-99)
--- NOTE | 2025-05-22 10:17 | ITS.CL.CARDI ---
Wall Covering Installer - Cardioversion
Cardioversion
Procedure Report:
Date of Procedure: 05/22/25
Procedure: Cardioversion
Indication: Symptomatic atrial flutter
Performing Physician: Ollie Grijalva MD
Technique: The patient was brought to the holding area. Signed informed consent was obtained. A time out was called and performed. The patient was anesthetized by the anesthesia service. Anticoagulation status was reviewed and appropriate. R2 pads
were placed anteriorly and posteriorly. A 200 J synchronized biphasic shock restored normal sinus rhythm with sinus bradycardia. There were no complications.
Conclusion: Uncomplicated cardioversion from atrial flutter to sinus rhythm/bradycardia
Recommendation: Routine post cardioversion care. Continue equipment operator intermodal yard anticoagulation.
== END ==
LOC: CATH 06:47
PROVIDERS: ATTENDING PHYSICIAN Internal Medicine Cardiovascular Disease; FAMILY PHYSICIAN Family Medicine; OTHER PHYSICIAN Internal Medicine Cardiovascular Disease
DX: I48.92 Unspecified atrial flutter (principal); Z79.01 Long term (current) use of anticoagulants
CPT/HCPCS: 82962; 92960; 93005

== ENCOUNTER 2025-06-03 13:59 | Inpatient (IN) | payer MEDICARE, BC, SELFPAY ==
[2025-06-03] VITALS (20 sets, daily range): BP systolic 60–150; BP diastolic 39–95; PULSE 46–66; BMI 30.1
--- NOTE | 2025-06-03 10:33 | ED.GENMED ---
History of Present Illness
General
Chief Complaint: Dizziness
Source: patient
Exam Limitations: none
Time Seen by Provider: 06/03/25 10:22
History of Present Illness
History of Present Illness:
79-year-old male had an episode of dizziness after having breakfast this morning. Was walking into his den. [place] lightheaded. Fell to the ground. Does not think he passed out. No complaints at rest. He had a fall 10 days ago that was similar.
He has had issues with his blood pressure. Recently finished rehabilitation for cellulitis in the setting of chronic wounds and atrial flutter. Currently anticoagulated. Denies chest pain shortness of breath headache head injury or other
complaints acutely patient's is currently in the hospital
Past History
Past History
ED Past Medical History: Cancer (Colon cancer 1991), HTN, Hypercholesterolemia, NIDDM, Other (Rosacea, chronic leg edema, peripheral neuropathy) and Other (cellulitis LLE)
ED Past Surgical History: Bowel resection (Colon resection 1991) and Orthopedic (Right foot)
Social History
Tobacco: Non-smoker
Alcohol: None
Drug: None
Personal:
Living: with family
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
Family History
Family History: Hypertension
Review of Systems
Review of Systems
All Other Systems: Not applicable
Constitutional: Denies fever
Respiratory: Denies trouble breathing
Cardiac: Denies chest pain
ABD/GI: Denies abdominal pain
Phy Exam
Physical Exam
Physical Exam:
GENERAL: Alert and oriented in no apparent distress. Chronically ill-appearing multiple abrasions to both knees and arms in various stages of healing
EYE: Orbits normal.
NECK: Supple, nontender
CARDIAC: Regular rate and rhythm without any obvious murmurs.
LUNGS: Clear breath sounds,normal
ABDOMEN: Soft, without focal tenderness or distention
NEUROLOGICAL: Alert and oriented , grossly non-focal
SKIN: Warm and dry, no rash or lesion, no discoloration, skin intact.
MUSCULOSKELETAL: Chronic edema to both lower extremities. Some ecchymosis across the patellas
PSYCH: Normal and appropriate interaction.
Course
Orders/Labs/Results
Orders:
Orders
06/03/25 10:16
Electrocardiogram (*1) Urgent
Reason for Study: Vertigo / Dizzy
06/03/25 10:17
EKG- Treatment ONCE
06/03/25 10:33
CT Head W/o Iv Contrast Urgent
Comment:
Reason For Exam: Dizziness/anticoagulated
Cardiac Monitoring- Treatment ONCE
IV Insert/Care/Rem.- Treatment PRN
Pulse Ox/cont/shift [RESP] Stat
Quantity: 1
Physical Therapy Consult [Pt Eval And Treat] Urgent
Activity Level: Ambulate
06/03/25 10:44
Complete Blood Count/With Diff Urgent
Comprehensive Metabolic Panel Urgent
Abnormal Lab Results
06/03/25
10:44
MCH 26.9 L pg
(27.0-31.0)
MCHC 31.5 L g/dL
(33.0-37.0)
RDW 15.0 H %
(11.5-14.5)
Absolute Neuts (auto) 7.7 H 10^3/uL
(1.4-6.5)
Absolute Lymphs (auto) 0.7 L 10^3/uL
(1.2-3.4)
Absolute Monos (auto) 0.7 H 10^3/uL
(0.1-0.6)
Neutrophils % 83.0 H %
(42.2-75.2)
Lymphocytes % 7.6 L %
(20.5-51.1)
Carbon Dioxide 33 H mmol/L
(22-30)
BUN 34 H mg/dl
(9-20)
Creatinine 1.4 H mg/dL
(0.7-1.3)
Glucose 124 H mg/dl
(70-99)
06/03/25 10:44
06/03/25 10:44
Vital Signs
Initial and Last Documented VS:
Initial Vital Signs
Temp Pulse Resp BP
98.1 F 58 16 102/44
06/03/25 10:19 06/03/25 10:19 06/03/25 10:19 06/03/25 10:19
Last Documented Vital Signs
Temp Pulse Resp BP Pulse Ox
98.1 F 55 22 120/49 96
06/03/25 10:19 06/03/25 11:41 06/03/25 11:41 06/03/25 11:41 06/03/25 10:49
MDM/Problems Addressed
Differential Diagnosis Includes:
Very suspicious this is blood pressure related. There are some ADL concerns with patient currently home alone and his in the hospital with no support. Workup in progress. Will also ask for physical therapy
*Radiology
Radiology exam reviewed: radiology read reviewed (Negative)
*Pulse Oximetry
Oxygen Mode of Delivery: Room air
Patient hypoxic: no
*EKG
Interpreted by ED Provider?: Yes
Interpretation: abnormal
Comparison EKG: changes noted
Heart Rate: 57
Rate: bradycardiac
Rhythm: sinus
[place]: left axis deviation
Interval: normal interval
QRS Pattern: left vent hypertrophy
Ischemia: non-specific ST changes
*Earth Science Faculty Member Interpretation
Rate: normal
Interpretation: normal
Heart Rate: 60
Rhythm: sinus
*Critical Care Note
Total Time (30-74mins, 75-104mins- exclusive of procedures): Not Applicable
Update Note
Update Note:
Frequent falls. Symptomatic orthostatic hypotension. Renal insufficiency. Inpatient care
ED Attending Note
-
Portions of this chart may have been created with voice recognition software.� Occasional wrong word or��sound alike� substitutions may have occurred due to the inherent limitations of voice recognition software.
Discharge Plan
Departure
Patient Disposition: Admit
Date of Disposition: 06/03/25
Time of Disposition: 12:07
Presentation/result/management discussed w/ accepting MD/DO: Hospitalist
Discharge Problem:
Symptomatic hypotension, renal insufficiency, Frequent falls, Multiple abrasions
Prescriptions:
No Action
repaglinide 2 MG tablet
2 mg PO AC
atorvastatin 10 MG tablet
10 mg PO HS
calcium carbonate [Oyster Shell Calcium 500] 500 MG tablet
500 mg PO BID
Slow-Mag 71.5 mg Tablet,Delayed Release (Dr/Ec)
64 mg PO MEALS Qty: 0
bisacodyl 5 MG tablet,delayed release (DR/EC)
10 mg PO DAILY Qty: 0 0RF
docusate sodium 100 MG capsule
100 mg PO BIDPRN PRN (Reason: constipation)
fluticasone propionate 50 mcg/actuation [place],Suspension
2 spray INTRANASAL DAILY
bephmhiqyzpc-omhrwqvh-neefwr Tablet
1 tab PO DAILY
cholecalciferol (vitamin D3) 25 mcg (1,000 unit) Tablet
25 mcg PO DAILY
Trulicity 3 mg/0.5 mL Pen Injector
3 mg SC SA
Fish Oil capsule
850 mg PO DAILY
Eliquis 5 mg Tablet
5 mg PO BID Qty: 60 11RF
dapagliflozin propanediol 10 mg Tablet
10 mg PO DAILY Qty: 30 11RF
Patient Comments:
on hold
Entresto 24-26 mg Tablet
1 tab PO BID Qty: 60 11RF
furosemide 40 mg Tablet
40 mg PO DAILY Qty: 30 11RF
amiodarone [Pacerone] 200 mg Tablet
200 mg PO BID Qty: 60 0RF
metoprolol succinate 100 mg Tablet Extended Release 24 Hr
100 mg PO BID Qty: 60 11RF
spironolactone 25 mg Tablet
12.5 mg PO DAILY Qty: 30 11RF
amiodarone 200 mg tablet
200 mg PO DAILY Qty: 30 11RF
Insulin Glargine Lantus [Lantus] 35 UNITS
Subcutaneous Insulin Syringe [Syringe-Insulin] 0 UNIT
As Directed mls/hr SC HS
Ordered By: Marcial Fitzgerald MD
Last Taken: Unknown
cephalexin 500 mg capsule
500 mg PO Q6H Qty: 1 0RF
Rx Instructions:
through 04/20/25
acetaminophen
Referrals:
Renato Giles MD [Family Provider, Internal Medicine]
Interventions
Interventions:
*Risk Screen - Suicide Last Done: 06/03/25 10:33
*General Assessment Last Done: 06/03/25 10:33
*Neglect/Abuse Screening Last Done: 06/03/25 10:33
*ED- Fall Risk Assessment Last Done: 06/03/25 10:33
ED- Neurological Assessment Last Done: 06/03/25 10:33
ED Swallowing Screen Last Done: 06/03/25 10:33
Discharge Date and Time
Print Language: THAI
[2025-06-03 11:09] LABS: Hematocrit 44.5 % (39.0-52.0); Hemoglobin 14.0 g/dL (13.0-18.0); Mean Corp Hgb Conc. 31.5 g/dL (33.0-37.0); Mean Corpuscular Volume 85.6 fL (80.0-94.0); Nucleated Red Blood Cells % 0 % (-); Platelet Count 220 10^3/uL (130-400); Red Cell Dist. Width 15.0 % (11.5-14.5)
[2025-06-03 11:28] LABS: ALT (SGPT) 24 U/L (0-50); AST (SGOT) 23 U/L (17-59); Albumin 3.7 g/dl (3.5-5.0); Alkaline Phosphatase 80 U/L (38-126); Blood Urea Nitrogen 34 mg/dl (9-20); Calcium 10.0 mg/dl (8.4-10.2); Carbon Dioxide 33 mmol/L (22-30); Chloride 98 mmol/L (98-107); Estimated Creatinine Clearance 69 ml/min; Glucose 124 mg/dl (70-99); Potassium 4.5 mmol/L (3.5-5.1); Sodium 136 mmol/L (135-145); eGFR 50.81
[2025-06-03] MEDS: NSS 500 IV (12:28)
[2025-06-03 13:03] LABS: Total Protein 6.4 g/dl (6.3-8.2)
[2025-06-03 13:39] LABS: Glucose - Point of Care 84 mg/dl (70-99)
--- NOTE | 2025-06-03 14:06 | HPS.HSE ---
Addendum entered and electronically signed by Charlie Meneses MD 06/04/25 15:36:
Orthostatic hypotension which is likely secondary to multiple antihypertensive use versus diabetic neuropathy causing autonomic dysfunction or could be multifactorial being related to both as stated above.
-Hold antihypertensives
- Resume beta-luna as tolerated
- Monitor on telemetry
- Check orthostatics
- Abdominal binder compression stockings
- Cardiology consulted
- May require midodrine
TUNDE
- Likely in part related to intermittent hypotension/prerenal etiology
- IV fluids
- Avoid nephrotoxins hypotension
- Repeat BMP in the a.m.
Original Note:
Family Physician
-
Family Physician: Mukund Giles
Chief Complaint
-
Orthostatic hypotension
History of Present Illness
79-year-old male with a past medical history of type 2 diabetes with diabetic neuropathy, chronic heart failure with reduced ejection fraction, hypertension, and recent history of atrial flutter status post cardioversion 05/22 comes to the ED due to
recent history of dizziness. He was having breakfast this morning and was walking with his walker however developed dizziness that caused him to fall. Does not report passing out, and also does not report hitting his head. Says that he does not
have any dizziness while he is resting, it is mainly due to exertion or when he is gets up from sitting down. He had similar incident where he fell around 10 days ago where he also fell due to dizziness but did not go to the hospital at that time.
He recently finished rehabilitation for his cellulitis, he was rehabbing at a facility of [facility] and recently moved back home to live with his . Continues to stay anticoagulated with Eliquis, and finished his course of antibiotics for the
cellulitis. He also started on amiodarone for atrial flutter which he continues to take. Does not have any chest pain, shortness of breath, headaches, and was evaluated in the ED for any intracranial hemorrhage, but the CT scan was negative. He
does report having some increased urination with his diuretic, but does not report any dysuria, change in color of urine.
Medical History
Past Medical History
Past Medical History: Reports Arrhythmia (Atrial flutter, status post cardioversion 05/22), CHF (CHFrEF (EF 40-45%)), HTN, Hypercholesterolemia and IDDM (With neuropathy)
Past Surgical History: Reports Other (Bilateral foot surgery, throat abscess, colon surgery (bowel resection 1991))
Social History
Tobacco: Non-smoker
Alcohol: None
Drug: None
Personal:
Living: With Family
Employment: Retired
Family History
Family History: Not pertinent
Allergies / Home Medications
Allergies reflects when Allergies were last updated in [employer].
Home Medications with original date entered in [employer]
Allergy/Medication List:
Allergies
Allergy/AdvReac Type Severity Reaction Status Date / Time
No Known Allergies Allergy Verified 06/03/25 10:29
Home Medications
atorvastatin 10 mg tablet 10 mg PO HS High cholesterol 02/02/15
calcium carbonate (Oyster Shell Calcium 500) 500 mg PO BID Supplement 02/02/15
repaglinide 2 mg tablet 2 mg PO AC Diabetes 02/02/15
magnesium chloride 71.5 mg (magnesium chloride) tablet,delayed release (Slow-Mag) 64 mg PO MEALS Supplement ##0 08/11/20
docusate sodium 100 mg capsule 300 mg PO HS 12/21/23
Fish Oil 850 mg PO DAILY 04/09/25
cholecalciferol (vitamin D3) 25 mcg (1,000 unit) tablet 25 mcg PO DAILY 04/09/25
dulaglutide 3 mg/0.5 mL subcutaneous pen injector (Trulicity) 3 mg SC SA 04/09/25
fluticasone propionate 50 mcg/actuation nasal spray,suspension 2 spray intranasal DAILYPRN PRN congestion 04/09/25
nonsgshzyueq-biaswtuj-azuhuq tablet 1 tab PO DAILY 04/09/25
apixaban 5 mg tablet (Eliquis) 5 mg PO BID Blood clot prevention/tx #60 tabs 04/16/25
dapagliflozin propanediol 10 mg tablet 10 mg PO DAILY Heart Failure #30 tabs 04/16/25
sacubitril 24 mg-valsartan 26 mg tablet (Entresto) 1 tab PO BID Heart Failure #60 tabs 04/16/25
spironolactone 25 mg tablet 12.5 mg (1/2 x 25 mg) PO DAILY Heart Failure #30 tabs 04/16/25
amiodarone 200 mg tablet 200 mg PO DAILY@1200 Arrhythmia 06/03/25
furosemide 40 mg tablet 40 mg PO DAILYPRN PRN leg swelling 06/03/25
gabapentin 100 mg capsule 200 mg PO DAILY 06/03/25
gabapentin 300 mg capsule 300 mg PO HS 06/03/25
glucosamine-chondroitin 250 mg-200 mg tablet 3 tab PO DAILY@1200 06/03/25
insulin glargine U-300 conc 300 unit/mL (3 mL) subcutaneous pen (Toujeo Max U-300 SoloStar) 34 unit SC HS 06/03/25
lisinopril 5 mg tablet 5 mg PO .DAILY-SEE BELOW 06/03/25
meloxicam 15 mg tablet 15 mg PO HS 06/03/25
metoprolol succinate 100 mg tablet,extended release 24 hr 100 mg PO . DID NOT START Heart Failure 06/03/25
metoprolol succinate 25 mg tablet,extended release 24 hr 12.5 mg PO HS 06/03/25
pseudoephedrine HCl 120 mg tablet,extended release 120 mg PO BIDPRN PRN congestion 06/03/25
sitagliptin phosphate 100 mg tablet (Januvia) 100 mg PO HS 06/03/25
Review of Systems
-
History Source: Patient
A 12 point ROS was completed and negative except as noted: Yes
Constitutional: Denies Fever, Weight Gain, Fatigue or Chills
EENT: Reports No Symptoms
Respiratory: Reports No Symptoms
Cardiac: Reports No Symptoms
Abdomen/GI: Reports No Symptoms
: Reports Frequency; Denies Dysuria
Musculoskeletal: Reports No Symptoms
Skin: Reports No Symptoms
Neurological: Reports Dizzy and Weakness; Denies Headache
Endocrine: Reports No Symptoms
Hematologic/Lymphatic: Reports No Symptoms
Psych: Reports No Symptoms
Physical Exam
Vital Signs
Vital Signs
Temp Pulse Resp BP Pulse Ox
98.1 F 55 22 120/49 96
06/03/25 10:19 06/03/25 11:41 06/03/25 11:41 06/03/25 11:41 06/03/25 10:49
Physical Exam
General: Well Developed, Well Nourished, No Apparent Distress, Comfortable and Conversant
HEENT: NormoCephalic and Anicteric
Respiratory: Clear and Non Labored Respirations
Cardiac: S1/S2 and Regular Rhythm
GI: Soft, Non Tender, Non Distended and Normal Bowel Sounds
Musculoskeletal: No Clubbing, No Cyanosis and No Edema
Skin: Warm and Dry
Neuro: Awake, Alert, Oriented, AO x 3, No Motor Deficits and No Sensory Deficits
Psych: Calm
Laboratory Results
-
06/03/25 10:44
06/03/25 10:44
Laboratory Results
Total Bilirubin 0.8 mg/dl (0.2-1.3) 06/03/25 10:44
AST 23 U/L (17-59) 06/03/25 10:44
ALT 24 U/L (0-50) 06/03/25 10:44
Alkaline Phosphatase 80 U/L (38-126) 06/03/25 10:44
Data Reviewed
-
CT Scan: Report Reviewed by me, Discussed with Physician and Discussed with Patient
Lab Data: Labs Reviewed by me, Discussed with Physician and Discussed with Patient
Impression/Plan
-
Assessment:
79-year-old male with past medical history of type 2 diabetes with diabetic neuropathy, chronic heart failure with reduced ejection fraction, hypertension, and recent history of atrial flutter status post cardioversion 05/22 comes to the ED due to
recent history of dizziness. He was found to have marked orthostatic hypotension while in the ED, was started on some fluids, given two boluses of normal saline 500 mL each. Found to have mild TUNDE with creatinine increased to 1.4. EKG showed no
signs of atrial flutter, still in normal sinus however a bit of bradycardia. Following discussion with patient, he had been taking all the medications on his list, even those that were discontinued at last hospital visit. Seems he was taking both
lisinopril and Entresto at the same time. Cardiology were consulted, blood pressure medications were held, awaiting improvement of volume status and will resume as per discussion with cardiology.
Plan:
# Dizziness causing fall
- Found to be hypotensive, orthostatics vitals were checked which were positive
- Will admit to telemetry, continue monitoring
- Patient giving 2 500 mL boluses of normal saline
- Consulted cardiology, input appreciated what is your input
- EKG did not show any abnormal rhythm, normal sinus with bradycardia
- Will continue infusion of normal saline, 50 mL/h
- Have to be careful with fluid infusion due to history of CHF
- Holding blood pressure medications until fluid status improves
- PT OT eval
# Orthostatic Hypotension
- Most likely due to medication history
- Will hold-hypertensive medications
- Continuing soft IV fluids
- Continue monitoring blood pressure, will continue orthostatic vitals
# TUNDE most likely due to dehydration, medication side effect
- Creatinine levels increased, 1.4
- Continue IV fluids stopped hydration
- Continue monitoring BMP
# Type 2 diabetes, with neuropathy
- On Lantus 34 units, has continuous glucose monitor
- Reviewed glucose readings, have been fairly normal at home
- Continue glucose monitoring
- Insulin sliding scale as needed, moderate scale
# History of atrial flutter status post cardioversion 05/22
- In normal sinus rhythm at this time
- Will admit to telemetry, continue monitoring
- Continue amiodarone
- Continue Eliquis 5 mg twice daily
#Diabetic Neuropathy affecting bilateral upper and lower extremities
- Will continue Gabapentin
Full code
DVT prophylaxis: Eliquis
--- NOTE | 2025-06-03 15:30 | CON.CAR ---
Addendum entered and electronically signed by Andres Tyson MD 06/03/25 16:18:
I saw and examined the patient.
The CORSETIER or PA's note was reviewed and I agree with the note.
Comment: I saw and evaluated the patient. I reviewed the resident�s note and agree with findings and plan as documented in the resident�s note.
General: Well developed, well nourished in NAD.
Neck: Supple, no JVD, HJR, carotids +2 B/L, no bruits bilaterally.
Heart: Non displaced PMI, RRR, no murmurs, No S3, S4, no rubs.
Lungs: Scattered rhonchi at the bases
Extremities: No clubbing, cyanosis or edema bilaterally.
Neuro: Grossly nonfocal, awake, alert and oriented x3.
Gentleman has a history of chronic diastolic CHF, hypertension, diabetes, hyperlipidemia, peripheral neuropathy, atrial flutter status post cardioversion to sinus rhythm in April 2025 on chronic Eliquis. He presents after a fall. He has had
episodes of dizziness recently. He has had intolerance to multiple medications due to hypotension. At 1 point he was on lisinopril then Entresto then Aldactone but were all stopped due to hypotension. Toprol was also decreased as well.
Cardiology is consulted regarding his medications and orthostasis. Will continue to follow for now but holding antihypertensive medications. Would hope to be able to continue Toprol. He may in fact need midodrine depending on his blood
pressure/orthostatics.
Original Note:
Consultation
Consultation Request
Date/Time Consultation Requested: 06/03/25 13:58
Date/Time Consultation Performed: 06/03/25 14:30
Requesting Provider: Jordy Arzola MD (Resident)
Performing Provider: Jan Sanderson DO (Resident); Andres Tyson MD
Reason for Consultation: Dizziness, Polypharmacy
Medical History
-
Chief Complaint: Dizziness, Fall
History of Present Illness:
Andres Giron is a 79M w/ PMHx HTN, HLD, NIDDM, HFrEF, peripheral neuropathy, and recent diagnosis of atrial flutter during admission for LE cellulitis in March with successful cardioversion, but currently anticoagulated on Eleiquis, who presented s/p
fall this morning. Patient states the he was eating his breakfast at approx. 0900 this AM. He got out of the chair and used his walked to walk 6 feet when he started to feel dizzy. He describes the dizziness as lightheadedness. He endorses feeling
dizzy more often these days. He then proceeded to fall towards the ground, but denies syncope, LOC, CP, SOB, palpitations, UDQUE, nausea, sweating, or feelings of warmth during the event. He states that he had a similar fall 10 days ago, but today felt
different because he was too weak to get up immediately. He endorses not drinking a lot of fluid since he is used to being fluid restricted for CHF. Otherwise notes he is eating well. Endorses bilateral knee abrasions/ecchymosis and elbow abrasion
s/p fall, but no other injuries.
On last visit, patient was started on BB/Eliqiuis and discharged on Amioderone for outpatient cardioversion successfullly performed on 05/22. For HFrEF, patient was d/c on oral Lasix and Entresto, while continuing BB and Aldactone. Patient was
deemed not a good candidate for SGLT2i.
Patient then had a follow up visit with [facility], noted that Entresto was stopped due to hypotension, Toprol was decreased to 25 md qd, aldactone decreased to 12.5 md qd, Lasix was changed to PRN at the rehab facility.
ED COURSE
Knee abrasions bilaterally, knee ecchymosis bilaterally, chronic leg swelling
Orthostatic VS positive
BPs: 102/44 (arrival) --> 60/43 --> 76/42 --> 67/44 --> 120/49 (s/p 2 x 500cc bolus)
TUNDE Cr 1.4 (baseline 0.8)
EKG sinus wendy
CT Head unremarkable
We were consulted for familiarlity with the patient's medical history and for collaborative efforts at medication reconciliation.
Past Medical History
Past Medical History: Other (HTN, HLD, NIDDM, HFrEF, peripheral neuropathy. atrial flutter on Eliqiuis)
Past Surgical History: Other (No cardiac surgeries. )
Social History
Tobacco: Non-Smoker
Alcohol: Former (quit in 1984)
Drug: None
Personal:
Living: With Family
Employment: Retired
Family History
Family History: Other (Family history of DM and colon CA. No Fhx of HTN, SD or CAD. )
Allergies / Home Medications
Allergy/AdvReac Type Severity Reaction Status Date / Time
No Known Allergies Allergy Verified 06/03/25 10:29
�Medication �Instructions �Recorded �Confirmed �Type
atorvastatin 10 mg tablet 10 mg PO HS High cholesterol 02/02/15 06/03/25 History
calcium carbonate (Oyster Shell 500 mg PO BID Supplement 02/02/15 06/03/25 History
Calcium 500)
repaglinide 2 mg tablet 2 mg PO AC Diabetes 02/02/15 06/03/25 History
magnesium chloride 71.5 mg 64 mg PO MEALS Supplement ##0 08/11/20 06/03/25 History
(magnesium chloride)
tablet,delayed release (Slow-Mag)
docusate sodium 100 mg capsule 300 mg PO HS 12/21/23 06/03/25 History
Fish Oil 850 mg PO DAILY 04/09/25 06/03/25 History
cholecalciferol (vitamin D3) 25 25 mcg PO DAILY 04/09/25 06/03/25 History
mcg (1,000 unit) tablet
dulaglutide 3 mg/0.5 mL 3 mg SC SA 04/09/25 06/03/25 History
subcutaneous pen injector
(Trulicity)
fluticasone propionate 50 2 spray intranasal DAILYPRN PRN 04/09/25 06/03/25 History
mcg/actuation nasal congestion
spray,suspension
spcrdipwoseq-ozaqmohk-foisuv tablet 1 tab PO DAILY 04/09/25 06/03/25 History
apixaban 5 mg tablet (Eliquis) 5 mg PO BID Blood clot 04/16/25 06/03/25 Rx
prevention/tx #60 tabs
dapagliflozin propanediol 10 mg 10 mg PO DAILY Heart Failure #30 04/16/25 06/03/25 Rx
tablet tabs
sacubitril 24 mg-valsartan 26 mg 1 tab PO BID Heart Failure #60 tabs 04/16/25 06/03/25 Rx
tablet (Entresto)
spironolactone 25 mg tablet 12.5 mg (1/2 x 25 mg) PO DAILY 04/16/25 06/03/25 Rx
Heart Failure #30 tabs
amiodarone 200 mg tablet 200 mg PO DAILY@1200 Arrhythmia 06/03/25 06/03/25 History
furosemide 40 mg tablet 40 mg PO DAILYPRN PRN leg swelling 06/03/25 06/03/25 History
gabapentin 100 mg capsule 200 mg PO DAILY 06/03/25 06/03/25 History
gabapentin 300 mg capsule 300 mg PO HS 06/03/25 06/03/25 History
glucosamine-chondroitin 250 mg-200 3 tab PO DAILY@1200 06/03/25 06/03/25 History
mg tablet
insulin glargine U-300 conc 300 34 unit SC HS 06/03/25 06/03/25 History
unit/mL (3 mL) subcutaneous pen
(Toujeo Max U-300 SoloStar)
lisinopril 5 mg tablet 5 mg PO .DAILY-SEE BELOW 06/03/25 06/03/25 History
meloxicam 15 mg tablet 15 mg PO HS 06/03/25 06/03/25 History
metoprolol succinate 100 mg 100 mg PO . DID NOT START Heart 06/03/25 06/03/25 History
tablet,extended release 24 hr Failure
metoprolol succinate 25 mg 12.5 mg PO HS 06/03/25 06/03/25 History
tablet,extended release 24 hr
pseudoephedrine HCl 120 mg 120 mg PO BIDPRN PRN congestion 06/03/25 06/03/25 History
tablet,extended release
sitagliptin phosphate 100 mg 100 mg PO HS 06/03/25 06/03/25 History
tablet (Januvia)
Review of Systems
-
History Source: Patient
All other systems: Negative unless noted
Physical Exam
Vital Signs
Temp Pulse Resp BP Pulse Ox
98.1 F 55 22 120/49 96
06/03/25 10:19 06/03/25 11:41 06/03/25 11:41 06/03/25 11:41 06/03/25 10:49
Lab Results
06/03/25 10:44
06/03/25 10:44
Physical Exam
General: Well Developed, Well Nourished, No Apparent Distress and Comfortable; Negative Respiratory Distress
HEENT: Normocephalic
Respiratory: Clear, Non Labored Respirations and Other (no supplemental O2); Negative Wheezes, Crackles or Rhonchi
Cardiac: S1/S2, Regular Rhythm and Other (bradycardia)
Musculoskeletal: No Clubbing, No Cyanosis and No Edema (in compression stockings)
Skin: Warm
Neuro: Awake, Alert and Oriented
Psych: Calm
Impression / Plan
-
Andres Giron is a 79M with a PMHx of PMHx HTN, HLD, NIDDM, HFrEF, peripheral neuropathy, and atrial flutter with recent successful cardioversion, but currently anticoagulated on Eliquis, who presented s/p fall this morning and is found to
hypotensive, mildly bradycardic and orthostatic in the ED this morning. Patient has presented a list of medications that he believes he is supposed to be taking, but the list is in contradiction to [email or web address] and
[facility]. Patient would benefit from continued admission for orthostasis and a thorough medication reconciliation. All medications have currently been held by primary team. Patient should remain on telemetry with repear orthostatic testing in the AM
after a period of washout, and necessary medications be re-added to the patient's medication regimen with thorough patient education. Patient may also benefit from a trial of midodrine in the setting of decreased fluid intake and limited ability to
intake fluid due to HFrEF.
PLAN
Continue to hold medications for now
Discontinue Lisinopril in the setting of Entresto use.
Monitor on telemetry.
Repeat orthostatics in AM
Will review outpatient notes, hospital discharge summaries and rehab discharge summaries for medications
Consider Midodrine in the setting of continued hypotension
Data Reviewed
-
EKG: Tracing Personally Visualized and interpreted and Report Reviewed by me
CT Scan: Report Reviewed by me and Discussed with Patient
Labs: Labs Reviewed by me and Discussed with Patient
Old Records: Reviewed
Total Time Spent with Patient (in minutes): 40
[2025-06-03] MEDS: NSS 1000 IV (19:58)
[2025-06-03] MEDS: ELIQUIS 5 MG PO (19:59)
[2025-06-03 20:08] LABS: Glucose - Point of Care 115 mg/dl (70-99)
[2025-06-03] MEDS: NOVOLOG FLEXPEN-MODERATE RESISTANCE SC (20:14)
[2025-06-03 22:30] LABS: Glucose - Point of Care 106 mg/dl (70-99)
[2025-06-03] MEDS: LIPITOR 10 MG PO (22:56)
[2025-06-03] MEDS: MOBIC 15 MG PO (22:57)
[2025-06-03] MEDS: NEURONTIN 300 MG PO (22:57)
--- NOTE | 2025-06-03 23:00 | PTCARENOTE ---
Pt arrived to floor via stretcher from the ED. Pt AAOx3. PT asking to walk from stretcher to bed. Orthostatic vital signs obtained prior to mobility. Pt BP from laying SBP 150 to sitting 80 SBP. Pt denied complaints of dizziness. OOB x2 with walker
to stand and pivot with staff assist to ensure safety. Pt reports feeling dizzy once sitting on side of bed. HR in the 50's in SB with PAC's on the monitor. POX 94% on RA. Lungs dec @ bases. Multiple wounds, see wound care documentation. Pt able to
move in bed independently. Left forarm int in place infusing NSS@50ml/hr. Pt denies any complaints at this time. Call sky in reach. Will continue to monitor.
[2025-06-04] VITALS (9 sets, daily range): BP systolic 71–155; BP diastolic 45–68; PULSE 54–97; BMI 30.1
[2025-06-04] MEDS: LANTUS 0.27 UNITS SC ×2 (00:18→21:46)
--- NOTE | 2025-06-04 06:15 | PTCARENOTE ---
Pt with scant urine output overnight. Bladder scan performed, 800ml. Pt asking to stand at bedside. Pt assisted x2 to stand with walker, pt able to void 200ml urine without difficulty. BP 71/40 pt's legs shaking upon sitting back in bed and some
complaints of dizziness. Pt assisted back to bed per comfort. Pt instructed will need to void again shortly to fully empty bladder. pt denies any other complaints at this time. Call sky in reach. Will continue to monitor.
[2025-06-04 07:06] LABS: Hematocrit 43.1 % (39.0-52.0); Hemoglobin 13.8 g/dL (13.0-18.0); Mean Corp Hgb Conc. 32.0 g/dL (33.0-37.0); Mean Corpuscular Volume 85.9 fL (80.0-94.0); Platelet Count 204 10^3/uL (130-400); Red Cell Dist. Width 15.0 % (11.5-14.5)
[2025-06-04 07:29] LABS: ALT (SGPT) 21 U/L (0-50); AST (SGOT) 24 U/L (17-59); Albumin 3.4 g/dl (3.5-5.0); Alkaline Phosphatase 70 U/L (38-126); Blood Urea Nitrogen 30 mg/dl (9-20); Calcium 9.4 mg/dl (8.4-10.2); Carbon Dioxide 30 mmol/L (22-30); Chloride 102 mmol/L (98-107); Estimated Creatinine Clearance 68 ml/min; Glucose 107 mg/dl (70-99); Potassium 4.4 mmol/L (3.5-5.1); Sodium 135 mmol/L (135-145); Total Protein 5.8 g/dl (6.3-8.2); eGFR > 60.00
--- NOTE | 2025-06-04 08:10 | W.PN.HOSP.TC ---
Addendum entered and electronically signed by Charlie Meneses MD 06/04/25 15:39:
Orthostatic hypotension which is likely secondary to multiple antihypertensive use versus diabetic neuropathy causing autonomic dysfunction or could be multifactorial being related to both as stated above.
-Hold antihypertensives
- Resume beta-luna as tolerated
- Monitor on telemetry
- Check orthostatics
- Abdominal binder compression stockings
- Cardiology consulted
- Start midodrine low dose
TUNDE, improved as expected with ivf and adjusting bp meds
- Likely in part related to intermittent hypotension/prerenal etiology
- IV fluids
- Avoid nephrotoxins hypotension
- Repeat BMP in the a.m.
Original Note:
Today's Communication/Plan
-
Continue orthostatic vitals
Continue IV fluids
Resume hypertension medication as per cardiology
PT/OT
Assessment / Plan
Assessment / Plan
Assessment:
79-year-old male with past medical history of type 2 diabetes with diabetic neuropathy, chronic heart failure with reduced ejection fraction, hypertension, and recent history of atrial flutter status post cardioversion 05/22 comes to the ED due to
recent history of dizziness. He was found to have marked orthostatic hypotension while in the ED, was started on some fluids, given two boluses of normal saline 500 mL each. Found to have mild TUNDE with creatinine increased to 1.4. EKG showed no
signs of atrial flutter, still in normal sinus however a bit of bradycardia. Following discussion with patient, he had been taking all the medications on his list, even those that were discontinued at last hospital visit. Seems he was taking both
lisinopril and Entresto at the same time. Cardiology were consulted, blood pressure medications were held, awaiting improvement of volume status and will resume as per discussion with cardiology.
Plan:
# Dizziness causing fall
- Found to be hypotensive, orthostatics vitals were checked which were positive
- Will admit to telemetry, continue monitoring
- Patient giving 2 500 mL boluses of normal saline in the ED
- Consulted cardiology, input appreciated
- EKG did not show any abnormal rhythm, normal sinus with bradycardia
- Will continue infusion of normal saline, 50 mL/h
- Have to be careful with fluid infusion due to history of CHF
- Holding blood pressure medications until fluid status improves
- PT OT eval
# Orthostatic Hypotension
- Most likely due to medication history
- Will hold-hypertensive medications, resume as symptoms continue to improve
- Awaiting cardiology input
- Continuing soft IV fluids
- Continue monitoring blood pressure, will continue orthostatic vitals
# TUNDE most likely due to dehydration, medication side effect
- Resolving, creatinine dropped from 1.4 to 1.1
- Continue IV fluids stopped hydration
- Continue monitoring BMP
# Type 2 diabetes, with neuropathy
- On Lantus 34 units, has continuous glucose monitor
- Reviewed glucose readings, have been fairly normal at home
- Continue glucose monitoring
- Insulin sliding scale as needed, moderate scale
# History of atrial flutter status post cardioversion 05/22
- In normal sinus rhythm at this time
- Will admit to telemetry, continue monitoring
- Continue amiodarone
- Continue Eliquis 5 mg twice daily
# Multiple ulcers present on admission
# Left lower leg diabetic draining wound, POA
# Right arm scabbed wound with mild drainage, POA
# Stage III pressure ulcer on the sacrum, POA
# Bilateral Buttocks Pressure Injury Stage 2, POA
- Wound care consulted, input appreciated
- Continue management of wounds as directed
#Diabetic Neuropathy affecting bilateral upper and lower extremities
- Will continue Gabapentin
- Patient straight caths himself at home, continue bladder scan with straight cath
Full code
DVT prophylaxis: Eliquis
Anticipated Discharge: Within 24 hours
Subjective/Interval History
-
Date of Service: June 04, 2025
Patient seen this morning, resting comfortably in bed. Reports that he has been feeling a little bit better following hydration with IV fluids. Says he is overall feeling well, less dizzy from before. Wants to try to walk around a little bit more
today. Says that he was told he cannot walk too much as there is some sort of restriction. Otherwise has been eating well, reports no other concerns, no shortness of breath or chest pain.
Objective Data
-
Labs:
Laboratory Results
06/04/25
06:35
WBC 8.2
Hgb 13.8
Hct 43.1
Plt Count 204
Sodium 135
Potassium 4.4
Chloride 102
Carbon Dioxide 30
BUN 30 H
Creatinine 1.1
Glucose 107 H
Calcium 9.4
Total Bilirubin 0.7
AST 24
ALT 21
Alkaline Phosphatase 70
Vital Signs:
Vital Signs
Temp Pulse Resp BP Pulse Ox
97.6 F 49 18 113/52 93
06/04/25 08:02 06/04/25 08:02 06/04/25 08:02 06/04/25 08:02 06/04/25 08:02
I&O
06/03/25 06/04/25 06/05/25
06:59 06:59 06:59
Intake Total 840 / 840
Output Total 400 / 400
Balance 440 / 440
Review of Systems
-
History Source: Patient
Constitutional: Reports No Symptoms
EENT: Reports No Symptoms Reported
Respiratory: Reports No Symptoms
Cardiac: Reports No Symptoms
Abdomen/GI: Reports No Symptoms
Genitourinary: Reports No Symptoms
Musculoskeletal: Reports No Symptoms
Skin: Reports No Symptoms
Neuro: Reports Dizzy (Much improved from before)
Endocrine: Reports No Symptoms
Hematologic / Lymphatic: Reports No Symptoms
Physical Exam
-
General: Well Developed, Well Nourished, No Apparent Distress, Comfortable and Conversant
HEENT: Normocephalic and Atraumatic
Respiratory: Clear to Auscultation and Non Labored Respirations
Cardiac: Regular Rhythm and S1/S2
GI: Soft, Nontender, Nondistended and Normal Bowel Sounds
Genito-urinary: No Costovertebral Tender
Musculoskeletal: No Clubbing, No Cyanosis, No Edema and Other (Left lower ankle wrapped, had stockings on, no swelling noted on both legs)
Skin: Warm and Decubitus Ulcers (Right arm ulcer, covered with recent dressing change, will continue to monitor)
Neuro: Awake, Alert, Oriented, AO x 3, No Motor Deficits and No Sensory Deficits
Psych: Calm
Data Reviewed
-
Labs: Labs Reviewed by me and Discussed with Physician
[2025-06-04 08:11] LABS: Glucose - Point of Care 102 mg/dl (70-99)
[2025-06-04] MEDS: NOVOLOG FLEXPEN-MODERATE RESISTANCE SC ×2 (08:20→12:03)
[2025-06-04] MEDS: DESENEX/MITRAZOL/ZEASORB 1 APPLIC TOPICAL ×2 (08:21→20:47)
[2025-06-04] MEDS: NEURONTIN 200 MG PO (08:22)
[2025-06-04] MEDS: VITAMIN D3 (cholecalciferol) 25 MCG PO (08:22)
[2025-06-04] MEDS: ELIQUIS 5 MG PO ×2 (08:22→20:47)
[2025-06-04 09:06] LABS: Hepatitis C Antibody Negative (Negative)
--- NOTE | 2025-06-04 10:39 | WOUNDNOTE ---
RIGHT LOWER LEG
--- NOTE | 2025-06-04 10:40 | WOUNDNOTE ---
LEFT LATERAL LOWER LEG
--- NOTE | 2025-06-04 10:42 | WOUNDNOTE ---
BILATERAL LOWER EXTREMITIES
--- NOTE | 2025-06-04 10:42 | WOUNDNOTE ---
LEFT LATERAL LOWER LEG
--- NOTE | 2025-06-04 10:45 | WOUNDNOTE ---
[facility] RN note: Patient admitted with multiple falls and renal insufficiency.
See H&P for complete history. Patient lives with his who is currently in the hospital.
PMH: neuropathy, HTN, colon cancer 1992 s/p resection, NIDDM, Rosacea, leg edema, cellulitis LE, R foot surgery, lymphedema and venous ulcers.
Wound Location and type/assessment: Patient known to service, last seen 04/10/25. Now admitted s/p falls with: multiple scabbed abrasions, scant serosanguineous drainage, erythema surrounding. Compared to last seen, venous ulcers on legs nearly
healed, L lateral leg with small pink base, small drainage. Using Tubigrip's at home for compression, states he wears them 24 seven. Upon mechanical cleaning of L lateral leg ulcer, skin pealed off revealing healed skin and small pink opening.
Abrasions on knees due to fall, scant drainage. +1 LE edema, very dry skin on legs and feet. Plantar feet with Callus's, no open ulcers. Patient turned with assist in bed. Coccyx/buttocks chafed skin and stage 2 PI b/l buttocks, blanchable redness
surrounding open sores. Patient confirmed he sits in his recliner chair most of the day, has a foam cushion at home that he said doesn't work well. Groin skin folds and scrotum with MASD, denies incontinence, Desenex powder being used. Heels
blanchable red.
Appetite: good.
Pressure redistribution devices in place: [employer] Air. Patient ambulates with a cane. Turns with minimal assist. Placed pillows under calves. Gave patient an air chair cushion and made aware can take home upon discharge.
Plan:Local wound care applied to R arm, knees and L LE. Tubigrip size G knee high applied. Will order mineral oil for legs and feet to start tomorrow. Instructed patient LE elevation and pressure injury prevention measures.
Will confirm orders with hospitalist and updated nurse. Care plan to be updated and will follow as needed.
Note to case management requested for discharge: VN for wound care.
Recommended to patient to follow up at wound care center.
--- NOTE | 2025-06-04 11:17 | PTCARENOTE ---
patient with significant orthostasis. abdominal binder applied per order. fall precautions reinforced
[2025-06-04 12:03] LABS: Glucose - Point of Care 144 mg/dl (70-99)
[2025-06-04] MEDS: PACERONE 200 MG PO (12:06)
--- NOTE | 2025-06-04 12:59 | W.PN.CD ---
Addendum entered and electronically signed by Steven Redmond DO 06/04/25 18:13:
I saw and examined the patient.
The Forensic Structural Engineer's note was reviewed and I agree with the note.
Comment:
Plan:
Continue to hold meds including beta-luna, Entresto, Aldactone and Lasix. He was only taking Lasix as needed prior to admission. He may have been taking additional medications. Medication compliance was discussed.
He remains orthostatic. Continue IV fluid hydration.
Agree with midodrine for blood pressure support.
Continue to monitor orthostatic blood pressures.
Recheck echo to reevaluate left ventricular systolic function.
His EF is only mildly reduced in the setting of his atrial fibrillation. He remains in sinus. Continue anticoagulation.
Original Note:
Today's Communication / Plan
-
.
Impression / Plan
-
Andres Giron is a 79M with a PMHx of PMHx HTN, HLD, NIDDM, HFrEF, peripheral neuropathy, and atrial flutter with recent successful cardioversion, and currently anticoagulated on Eliquis, who presented s/p fall yesterday morning and was found to
hypotensive, mildly bradycardic and orthostatic in the ED. Patient has presented a list of medications that he believes he is supposed to be taking, but the list is in contradiction to some medical records as reviewed on [facility] and [facility]. Patient
would benefit from continued admission for orthostasis and a thorough medication reconciliation. All medications have currently been held by primary team. Repeat orthostatics this morning were positive.
PLAN
Continue to hold medications for now.
Will consider the re-addition of at least metoprolol at some point, but will hold off currently in setting of bradycardia.
Patient with HFmrEF, last seen in setting of a-flutter; will recheck ECHO to assess cardiac function
If EF is recovered, consider discontinuation of GDMT indefinitely
Agree with midodrine for diastolic BP support.
Continue to monitor on telemetry.
Repeat orthostatics in AM.
Physical Exam
Vital Signs/Labs
Vital Signs
Temp Pulse Resp BP Pulse Ox
97.6 F 57 18 124/51 95
06/04/25 12:14 06/04/25 12:14 06/04/25 12:14 06/04/25 12:14 06/04/25 12:14
06/03/25 06/04/25 06/05/25
06:59 06:59 06:59
Actual Weight 114.986 kg
06/04/25 06:35
06/04/25 06:35
Physical Exam
Constitutional: No acute distress and Comfortable
Cardiovascular: Rhythm & rate is regular, Pedal edema is absent, S1S2 is normal and Other (compression stockings bilaterally)
Respiratory: Respiratory effort normal and Lungs clear to auscul.
Data Reviewed
-
Date of Service: June 04, 2025
Labs: Labs Reviewed by me
Old Records: Reviewed
Total Time Spent with Patient (in minutes): 32
--- NOTE | 2025-06-04 14:08 | PN.CDI ---
CDI
- -
CDI:
Physician Documentation Request
Admit Date: 06/03/25 13:59
Dear Doctor Ness,
Clinical Indicators:
Patient admitted with orthostatic hypotension.
06/04 [facility] RN skin wound assessment: Bilateral Buttocks Pressure Injury Stage 2, POA
06/04 PN, 'Stage III pressure ulcer on the sacrum'
Due to potentially conflicting documentation, please clarify the stage/location of pressure ulcer:
Bilateral Buttocks Pressure Injury Stage 2, POA
Sacrum Stage 3, POA
Other, please specify
Pressure Ulcer Staging:
- Stage 1 - Skin intact, non-blanchable redness
- Stage 2 - Partial thickness loss of dermis, includes intact or open blister
- Stage 3 - Full thickness tissue not including bone, tendon or muscle
- Stage 4 - Full thickness tissue loss, including exposed bone, tendon or muscle
- Unstageable - Full thickness loss in which the base of the ulcer is covered by slough (yellow, carpenter, kennedy, green or brown) and/or eschar (carpenter, brown or black) in the wound bed.
- Unable to determine
Use of terms such as suspected, likely, concern for, or probable (associated with a specific diagnosis that is being evaluated, monitored, or treated as if it exists) are acceptable and can be coded in the inpatient setting, when documented at the
time of discharge.
Thank you,
LOPEZ Hammer RN
CDI Specialist
available via tiger text
Please use your independent medical judgment in providing your response.
*Source: National Pressure Ulcer Advisory Panel (NPUAP)
[2025-06-04] MEDS: NSS 1000 IV (15:04)
[2025-06-04 16:53] LABS: Glucose - Point of Care 158 mg/dl (70-99)
[2025-06-04] MEDS: NOVOLOG FLEXPEN-MODERATE RESISTANCE 1 UNITS SC (16:53)
[2025-06-04] MEDS: LIPITOR 10 MG PO (21:45)
[2025-06-04] MEDS: NEURONTIN 300 MG PO (21:45)
[2025-06-04] MEDS: MOBIC 15 MG PO (21:45)
[2025-06-04 22:02] LABS: Glucose - Point of Care 144 mg/dl (70-99)
[2025-06-05] VITALS (8 sets, daily range): BP systolic 82–162; BP diastolic 48–85; PULSE 66–108; O2SAT 99; BMI 30.2
--- NOTE | 2025-06-05 07:42 | W.PN.HOSP.TC ---
Addendum entered and electronically signed by Charlie Meneses MD 06/05/25 12:37:
Orthostatic hypotension which is likely secondary to multiple antihypertensive use versus diabetic neuropathy causing autonomic dysfunction or could be multifactorial being related to both as stated above.
-Hold antihypertensives
- Resume beta-luna as tolerated
- Monitor on telemetry
- Check orthostatics
- Abdominal binder compression stockings
- Cardiology following
- Started midodrine low dose
TUNDE, improved as expected with ivf and adjusting bp meds
- Likely in part related to intermittent hypotension/prerenal etiology cannot restart 40 mill needle.
Gauze every hour right review something stupid shit that should like this is I think this goes back to because it is just a parking lot because the bowl does everything and build up thyroids worse yeah okay you still makes no fucking 70s called like
our country is not our country anymore be a great our country is not our country
- IV fluids
- Avoid nephrotoxins hypotension
- Repeat BMP in the a.m.
Original Note:
Today's Communication/Plan
-
PT OT eval
Restarting hypertensive medications
Continue to hold IV fluids
Monitor for any further dizziness
Continue telemetry
Assessment / Plan
Assessment / Plan
Assessment:
79-year-old male with past medical history of type 2 diabetes with diabetic neuropathy, chronic heart failure with reduced ejection fraction, hypertension, and recent history of atrial flutter status post cardioversion 05/22 comes to the ED due to
recent history of dizziness. He was found to have marked orthostatic hypotension while in the ED, was started on some fluids, given two boluses of normal saline 500 mL each. Found to have mild TUNDE with creatinine increased to 1.4. EKG showed no
signs of atrial flutter, still in normal sinus however a bit of bradycardia. Following discussion with patient, he had been taking all the medications on his list, even those that were discontinued at last hospital visit. Seems he was taking both
lisinopril and Entresto at the same time. Cardiology were consulted, blood pressure medications were held, awaiting improvement of volume status and will resume as per discussion with cardiology.
Plan:
# Dizziness causing fall
- Found to be hypotensive, orthostatics vitals were checked which were positive
- Continue on telemetry
- Patient giving 2 500 mL boluses of normal saline in the ED
- Consulted cardiology, input appreciated
- EKG did not show any abnormal rhythm, normal sinus with bradycardia
- IV fluids discontinued
- Have to be careful with fluid infusion due to history of CHF
- Holding blood pressure medications until fluid status improves
- PT OT eval
# Orthostatic Hypotension
- Most likely due to medication history
- Will hold-hypertensive medications, resume as symptoms continue to improve
- Orthostatics much improved from before, still have around a 30 unit difference
- Continue monitoring blood pressure, will continue orthostatic vitals
- Holding off on IV fluids now
- PT OT eval
- Will start antihypertensive medication as per cardiology recommendations, starting with valsartan
# TUNDE most likely due to dehydration, medication side effect
- Resolving, creatinine dropped from 1.4 to 1.1
- IV fluids stopped
- Continue monitoring BMP
# History of HFmrEF
- No acute exacerbation at this time, no lower extremity swelling or any chest congestion, previous echo showed ejection fraction of 40 to 45%
- Echocardiogram ordered by cardiology yesterday, showed improved ejection fraction from before, now up to 50%
# Type 2 diabetes, with neuropathy
- On Lantus 34 units, has continuous glucose monitor
- Reviewed glucose readings, have been fairly normal at home
- Continue glucose monitoring
- Insulin sliding scale as needed, moderate scale
# History of atrial flutter status post cardioversion 05/22
- In normal sinus rhythm at this time
- Continue monitoring on telemetry
- Continue amiodarone
- Continue Eliquis 5 mg twice daily
# Multiple ulcers present on admission
# Left lower leg diabetic draining wound, POA
# Right arm scabbed wound with mild drainage, POA
# Stage III pressure ulcer on the sacrum, POA
# Bilateral Buttocks Pressure Injury Stage 2, POA
- Wound care consulted, input appreciated
- Continue management of wounds as directed
#Diabetic Neuropathy affecting bilateral upper and lower extremities
- Will continue Gabapentin
- Patient straight caths himself at home, continue bladder scan with straight cath
Full code
DVT prophylaxis: Eliquis
Anticipated Discharge: Within 24 hours
Subjective/Interval History
-
Date of Service: June 05, 2025
Patient seen this morning, resting comfortably in his bed. Reports that his dizziness is almost gone now. Is now off the IV fluids. Awaiting physical therapy eval.
Objective Data
-
Labs:
Laboratory Results
06/05/25
06:00
WBC Pending
Hgb Pending
Hct Pending
Plt Count Pending
Sodium Pending
Potassium Pending
Chloride Pending
Carbon Dioxide Pending
BUN Pending
Creatinine Pending
Glucose Pending
Calcium Pending
Total Bilirubin Pending
AST Pending
ALT Pending
Alkaline Phosphatase Pending
Vital Signs:
Vital Signs
Temp Pulse Resp BP Pulse Ox
97.6 F 54 16 143/59 94
06/05/25 03:23 06/05/25 03:23 06/05/25 03:23 06/05/25 03:23 06/05/25 03:23
I&O
06/04/25 06/05/25 06/06/25
06:59 06:59 06:59
Intake Total 840 / 840 2100 / 2100
Output Total 400 / 400 1575 / 1575
Balance 440 / 440 525 / 525
Review of Systems
-
History Source: Patient
Constitutional: Reports No Symptoms
EENT: Reports No Symptoms Reported
Respiratory: Reports No Symptoms
Cardiac: Reports No Symptoms
Abdomen/GI: Reports No Symptoms
Genitourinary: Reports No Symptoms
Musculoskeletal: Reports No Symptoms
Skin: Reports No Symptoms
Neuro: Reports No Symptoms
Endocrine: Reports No Symptoms
Hematologic / Lymphatic: Reports No Symptoms
Physical Exam
-
General: Well Developed, Well Nourished, No Apparent Distress, Comfortable and Conversant
HEENT: Normocephalic and Atraumatic
Respiratory: Clear to Auscultation and Non Labored Respirations
Cardiac: Regular Rhythm and S1/S2
GI: Soft, Nontender, Nondistended and Normal Bowel Sounds
Genito-urinary: No Costovertebral Tender
Musculoskeletal: No Clubbing, No Cyanosis, No Edema and Other (Left lower ankle wrapped, had stockings on, no swelling noted on both legs)
Skin: Warm and Decubitus Ulcers (Right arm abrasions, sacral decubitus ulcer, and left lower extremity ankle stage I ulcer, all covered with dressing, will continue to monitor)
Neuro: Awake, Alert, Oriented, AO x 3, No Motor Deficits and No Sensory Deficits
Psych: Calm
Data Reviewed
-
Medical Tests (Nuc Med, Echo etc): Report Reviewed by me, Discussed with Physician and Discussed with Patient
Labs: Labs Reviewed by me, Discussed with Physician and Discussed with Patient
[2025-06-05 08:00] LABS: Glucose - Point of Care 96 mg/dl (70-99)
[2025-06-05] MEDS: NEURONTIN 200 MG PO (08:01)
[2025-06-05] MEDS: VITAMIN D3 (cholecalciferol) 25 MCG PO (08:01)
[2025-06-05] MEDS: ELIQUIS 5 MG PO ×2 (08:01→20:19)
[2025-06-05] MEDS: NOVOLOG FLEXPEN-MODERATE RESISTANCE SC ×3 (08:01→17:13)
[2025-06-05] MEDS: HYDROPHOR 1 APPLIC TOPICAL (08:02)
[2025-06-05] MEDS: DESENEX/MITRAZOL/ZEASORB 1 APPLIC TOPICAL ×2 (08:02→20:19)
--- NOTE | 2025-06-05 08:32 | W.PN.HOSP.TC ---
Addendum entered and electronically signed by Charlie Meneses MD 06/06/25 08:42:
Orthostatic hypotension which is likely secondary to multiple antihypertensive use versus diabetic neuropathy causing autonomic dysfunction or could be multifactorial being related to both as stated above.
-Hold antihypertensives
- Resume beta-luna as tolerated
- Monitor on telemetry
- Check orthostatics
- Abdominal binder compression stockings
- Cardiology following
- Started midodrine low dose
TUNDE, improved as expected with ivf and adjusting bp meds
- Likely in part related to intermittent hypotension/prerenal etiology.
- IV fluids
- Avoid nephrotoxins hypotension
- Repeat BMP in the a.m.
Original Note:
Today's Communication/Plan
-
PT OT eval
Restarting hypertensive medications
Continue to hold IV fluids
Monitor for any further dizziness
Continue telemetry
Assessment / Plan
Assessment / Plan
Assessment:
79-year-old male with past medical history of type 2 diabetes with diabetic neuropathy, chronic heart failure with reduced ejection fraction, hypertension, and recent history of atrial flutter status post cardioversion 05/22 comes to the ED due to
recent history of dizziness. He was found to have marked orthostatic hypotension while in the ED, was started on some fluids, given two boluses of normal saline 500 mL each. Found to have mild TUNDE with creatinine increased to 1.4. EKG showed no
signs of atrial flutter, still in normal sinus however a bit of bradycardia. Following discussion with patient, he had been taking all the medications on his list, even those that were discontinued at last hospital visit. Seems he was taking both
lisinopril and Entresto at the same time. Cardiology were consulted, blood pressure medications were held, awaiting improvement of volume status and will resume as per discussion with cardiology.
Plan:
# Dizziness causing fall
- Found to be hypotensive, orthostatics vitals were checked which were positive
- Continue on telemetry
- Patient giving 2 500 mL boluses of normal saline in the ED
- Consulted cardiology, input appreciated
- EKG did not show any abnormal rhythm, normal sinus with bradycardia
- IV fluids discontinued
- Have to be careful with fluid infusion due to history of CHF
- Holding blood pressure medications until fluid status improves
- PT OT eval
# Orthostatic Hypotension
- Most likely due to medication history
- Will hold-hypertensive medications, resume as symptoms continue to improve
- Orthostatics much improved from before, still have around a 30 unit difference
- Continue monitoring blood pressure, will continue orthostatic vitals
- Holding off on IV fluids now
- PT OT eval
- Will start antihypertensive medication as per cardiology recommendations, starting with valsartan
# TUNDE most likely due to dehydration, medication side effect
- Resolving, creatinine dropped from 1.4 to 1.1
- IV fluids stopped
- Continue monitoring BMP
# History of HFmrEF
- No acute exacerbation at this time, no lower extremity swelling or any chest congestion, previous echo showed ejection fraction of 40 to 45%
- Echocardiogram ordered by cardiology yesterday, showed improved ejection fraction from before, now up to 50%
# Type 2 diabetes, with neuropathy
- On Lantus 34 units, has continuous glucose monitor
- Reviewed glucose readings, have been fairly normal at home
- Continue glucose monitoring
- Insulin sliding scale as needed, moderate scale
# History of atrial flutter status post cardioversion 05/22
- In normal sinus rhythm at this time
- Continue monitoring on telemetry
- Continue amiodarone
- Continue Eliquis 5 mg twice daily
# Multiple ulcers present on admission
# Left lower leg diabetic draining wound, POA
# Right arm scabbed wound with mild drainage, POA
# Stage III pressure ulcer on the sacrum, POA
# Bilateral Buttocks Pressure Injury Stage 2, POA
- Wound care consulted, input appreciated
- Continue management of wounds as directed
#Diabetic Neuropathy affecting bilateral upper and lower extremities
- Will continue Gabapentin
- Patient straight caths himself at home, continue bladder scan with straight cath
Full code
DVT prophylaxis: Eliquis
Anticipated Discharge: Within 24 hours
Anticipated Discharge: 24 - 48 hours
Subjective/Interval History
-
Date of Service: June 05, 2025
Patient seen this morning, resting comfortably in his bed. Reports that his dizziness is almost gone now. Is now off the IV fluids. Awaiting physical therapy eval.
Objective Data
-
Labs:
Labs
Laboratory Results
06/05/25
06:00
WBC Pending
Hgb Pending
Hct Pending
Plt Count Pending
Sodium Pending
Potassium Pending
Chloride Pending
Carbon Dioxide Pending
BUN Pending
Creatinine Pending
Glucose Pending
Calcium Pending
Total Bilirubin Pending
AST Pending
ALT Pending
Alkaline Phosphatase Pending
Vital Signs
Vital Signs
Temp Pulse Resp BP Pulse Ox
97.6 F 54 16 143/59 94
06/05/25 03:23 06/05/25 03:23 06/05/25 03:23 06/05/25 03:23 06/05/25 03:23
I&O
06/04/25 06/05/25 06/06/25
06:59 06:59 06:59
Intake Total 840 / 840 2100 / 2100
Output Total 400 / 400 1575 / 1575
Balance 440 / 440 525 / 525
Review of Systems
-
History Source: Patient
Constitutional: Reports No Symptoms
EENT: Reports No Symptoms Reported
Respiratory: Reports No Symptoms
Cardiac: Reports No Symptoms
Abdomen/GI: Reports No Symptoms
Genitourinary: Reports No Symptoms
Musculoskeletal: Reports No Symptoms
Skin: Reports No Symptoms
Neuro: Reports No Symptoms
Endocrine: Reports No Symptoms
Hematologic / Lymphatic: Reports No Symptoms
Physical Exam
-
General: Well Developed, Well Nourished, No Apparent Distress, Comfortable and Conversant
HEENT: Normocephalic and Atraumatic
Respiratory: Clear to Auscultation and Non Labored Respirations
Cardiac: Regular Rhythm and S1/S2
GI: Soft, Nontender, Nondistended and Normal Bowel Sounds
Genito-urinary: No Costovertebral Tender
Musculoskeletal: No Clubbing, No Cyanosis, No Edema and Other (Left lower ankle wrapped, had stockings on, no swelling noted on both legs)
Skin: Warm and Decubitus Ulcers (Right arm abrasions, sacral decubitus ulcer, and left lower extremity ankle stage I ulcer, all covered with dressing, will continue to monitor)
Neuro: Awake, Alert, Oriented, AO x 3, No Motor Deficits and No Sensory Deficits
Psych: Calm
Data Reviewed
-
Medical Tests (Nuc Med, Echo etc): Report Reviewed by me, Discussed with Physician and Discussed with Patient
Labs: Labs Reviewed by me, Discussed with Physician and Discussed with Patient
--- NOTE | 2025-06-05 08:39 | W.PN.CARDCBS ---
Today's Communication / Plan
-
Continue to hold meds including beta-luna, Entresto, Aldactone and Lasix. He was only taking Lasix as needed prior to admission. He may have been taking additional medications. Medication compliance was discussed.
He remains orthostatic but less so. Continue hydration and midodrine for blood pressure support.
Continue to monitor orthostatic blood pressures.
Echo Jun 04 2025: EF 50% with mild MR
He remains in sinus. Continue anticoagulation.
As his EF has recovered would hold off on resuming Entresto, aldactone and lasix and may consider beta luna as outpt.
Impression / Plan
-
.
PCP: Dr. Giles
Solid Waste Collection Worker: Dr. Tyson
Impression:
Orthostasis
Acute renal failure
PAFlutter s/p CHRISTINA/cv May 22 2025 remains sinus
DM-2 with neuropathy
Chronic HFrEF
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
Chronic LE edema, lymphedema
Hx colon cancer with prior colon resection
Hyponatremia
Hypertension
Hyperlipidemia
Chronic back pain
Plan:
Continue to hold meds including beta-luna, Entresto, Aldactone and Lasix. He was only taking Lasix as needed prior to admission. He may have been taking additional medications. Medication compliance was discussed.
He remains orthostatic. Continue hydration and midodrine for blood pressure support.
Continue to monitor orthostatic blood pressures.
Echo Jun 04 2025: EF 50% with mild MR
He remains in sinus. Continue anticoagulation.
As his EF has recovered would hold off on resuming Entresto, aldactone and lasix and may consider beta luna as outpt.
HPI: Andres Giron is a 79M with a PMHx of PMHx HTN, HLD, NIDDM, HFrEF, peripheral neuropathy, and atrial flutter with recent successful cardioversion, and currently anticoagulated on Eliquis, who presented s/p fall yesterday morning and was found to
hypotensive, mildly bradycardic and orthostatic in the ED. Patient has presented a list of medications that he believes he is supposed to be taking, but the list is in contradiction to some medical records as reviewed on [facility] and [facility].
Progress Note - Solid Waste Collection Worker
Subjective
Date of Service: June 05, 2025
Pt seen and examined. No complaints. No chest pain or shortness of breath.
Objective
Labs:
Labs
Hgb 13.8 g/dL (13.0-18.0) 06/04/25 06:35
Hct 43.1 % (39.0-52.0) 06/04/25 06:35
Plt Count 204 10^3/uL (130-400) 06/04/25 06:35
Sodium 135 mmol/L (135-145) 06/04/25 06:35
Potassium 4.4 mmol/L (3.5-5.1) 06/04/25 06:35
BUN 30 mg/dl (9-20) H 06/04/25 06:35
Creatinine 1.1 mg/dL (0.7-1.3) 06/04/25 06:35
Glucose 107 mg/dl (70-99) H 06/04/25 06:35
Vital Signs and I&O:
Vital Signs
Temp Pulse Resp BP Pulse Ox
97.6 F 57 16 128/65 94
06/05/25 08:04 06/05/25 08:04 06/05/25 08:04 06/05/25 08:04 06/05/25 08:04
Vital Signs
Temp Pulse Resp BP Pulse Ox
97.6 F 57 16 128/65 94
06/05/25 08:04 06/05/25 08:04 06/05/25 08:04 06/05/25 08:04 06/05/25 08:04
Intake & Output
06/03/25 06/04/25 06/05/25 06/06/25
06:59 06:59 06:59 06:59
Intake Total 840 / 840 2099 / 2099
Output Total 400 / 400 1575 / 1575
Balance 440 / 440 525 / 525
Physical Exam
Physical Exam
General: No acute distress, AAOX3
Neck: Negative JVD
Heart: Regular, Negative S3 positive S1/S2, Negative S4, No murmur
Lungs: CTA b/l, negative wheezes/rales/rhonchi
Abd: Positive BS, NT/ND, neg rebound/rigidity/guarding
Ext: Negative cyanosis/clubbing/edema
Neuro: nonfocal
[2025-06-05 08:40] LABS: Hematocrit 42.5 % (39.0-52.0); Hemoglobin 14.0 g/dL (13.0-18.0); Mean Corp Hgb Conc. 32.9 g/dL (33.0-37.0); Mean Corpuscular Volume 84.8 fL (80.0-94.0); Platelet Count 193 10^3/uL (130-400); Red Cell Dist. Width 14.9 % (11.5-14.5)
[2025-06-05 09:07] LABS: ALT (SGPT) 21 U/L (0-50); AST (SGOT) 22 U/L (17-59); Albumin 3.5 g/dl (3.5-5.0); Alkaline Phosphatase 78 U/L (38-126); Blood Urea Nitrogen 26 mg/dl (9-20); Calcium 9.3 mg/dl (8.4-10.2); Carbon Dioxide 26 mmol/L (22-30); Chloride 103 mmol/L (98-107); Estimated Creatinine Clearance 74 ml/min; Glucose 103 mg/dl (70-99); Potassium 4.7 mmol/L (3.5-5.1); Sodium 135 mmol/L (135-145); Total Protein 6.2 g/dl (6.3-8.2); eGFR > 60.00
--- NOTE | 2025-06-05 10:41 | CM ---
Addendum entered by Cleo Osuna RN 06/05/25 15:36:
IMM reviewed.
Original Note:
Reviewed the chart notes and spoke with the patient at the bedside. Patient resides with spouse in a two story home with two steps to enter. Patient has a stair glide, rw, and cane. Patient is current with [facility]. [facility] has been to [facility]. CM continues to be available to patient/family and is monitoring medical plan for needs at discharge.
Plan: Discharge to home with [facility]; referral placed in [facility].
[facility]
[2025-06-05 11:54] LABS: Glucose - Point of Care 138 mg/dl (70-99)
[2025-06-05] MEDS: PACERONE 200 MG PO (12:17)
--- NOTE | 2025-06-05 15:47 | WOUNDNOTE ---
WOC RN NOTE: ANTHONY Medina asked this creative services writer for orders for buttock wounds. Orders and care plan updated. Will follow as needed.
[2025-06-05 17:13] LABS: Glucose - Point of Care 133 mg/dl (70-99)
[2025-06-05] MEDS: OCEAN, SALINE MIST 1 SPRAYS NASAL (21:29)
[2025-06-05] MEDS: LIPITOR 10 MG PO (21:29)
[2025-06-05] MEDS: NEURONTIN 300 MG PO (21:29)
[2025-06-05] MEDS: MOBIC 15 MG PO (21:29)
[2025-06-05] MEDS: LANTUS 0.27 UNITS SC (21:37)
[2025-06-05 21:46] LABS: Glucose - Point of Care 138 mg/dl (70-99)
[2025-06-06] VITALS (7 sets, daily range): BP systolic 90–157; BP diastolic 53–86; PULSE 65–110; BMI 30.2
[2025-06-06 07:41] LABS: ALT (SGPT) 20 U/L (0-50); AST (SGOT) 22 U/L (17-59); Albumin 3.6 g/dl (3.5-5.0); Alkaline Phosphatase 79 U/L (38-126); Blood Urea Nitrogen 21 mg/dl (9-20); Calcium 9.2 mg/dl (8.4-10.2); Carbon Dioxide 29 mmol/L (22-30); Chloride 103 mmol/L (98-107); Estimated Creatinine Clearance 74 ml/min; Glucose 122 mg/dl (70-99); Potassium 4.8 mmol/L (3.5-5.1); Sodium 136 mmol/L (135-145); Total Protein 6.3 g/dl (6.3-8.2); eGFR > 60.00
[2025-06-06 07:42] LABS: Hematocrit 44.4 % (39.0-52.0); Hemoglobin 14.2 g/dL (13.0-18.0); Mean Corp Hgb Conc. 32.0 g/dL (33.0-37.0); Mean Corpuscular Volume 85.2 fL (80.0-94.0); Platelet Count 224 10^3/uL (130-400); Red Cell Dist. Width 15.0 % (11.5-14.5)
--- NOTE | 2025-06-06 08:09 | W.PN.HOSP.TC ---
Addendum entered and electronically signed by Charlie Meneses MD 06/06/25 12:51:
Orthostatic hypotension which is likely secondary to multiple antihypertensive use versus diabetic neuropathy causing autonomic dysfunction or could be multifactorial being related to both as stated above.
-Hold antihypertensives
- Resume beta-luna as tolerated
- Monitor on telemetry
- Check orthostatics
- Abdominal binder compression stockings
- Cardiology following
- Started midodrine low dose
TUNDE, improved as expected with ivf and adjusting bp meds
- Likely in part related to intermittent hypotension/prerenal etiology.
- IV fluids
- Avoid nephrotoxins hypotension
- Repeat BMP in the a.m.
Original Note:
Today's Communication/Plan
-
Continue midodrine
Continue physical therapy
Continue monitoring orthostatic vitals
Discussed with case management regarding disposition
Assessment / Plan
Assessment / Plan
Assessment:
79-year-old male with past medical history of type 2 diabetes with diabetic neuropathy, chronic heart failure with reduced ejection fraction, hypertension, and recent history of atrial flutter status post cardioversion 05/22 comes to the ED due to
recent history of dizziness. He was found to have marked orthostatic hypotension while in the ED, was started on some fluids, given two boluses of normal saline 500 mL each. Found to have mild TUNDE with creatinine increased to 1.4. EKG showed no
signs of atrial flutter, still in normal sinus however a bit of bradycardia. Following discussion with patient, he had been taking all the medications on his list, even those that were discontinued at last hospital visit. Seems he was taking both
lisinopril and Entresto at the same time. Cardiology were consulted, blood pressure medications were held, awaiting improvement of volume status and will resume as per discussion with cardiology.
Plan:
# Dizziness causing fall
- Found to be hypotensive, orthostatics vitals were checked which were positive
- Continue on telemetry
- Patient giving 2 500 mL boluses of normal saline in the ED
- Consulted cardiology, input appreciated
- EKG did not show any abnormal rhythm, normal sinus with bradycardia
- IV fluids discontinued
- Have to be careful with fluid infusion due to history of CHF
- Holding blood pressure medications until fluid status improves, continue midodrine 5 mg twice daily
- PT OT eval, recommend home health aide versus SNF. Will have discussed with patient regarding discharge options
# Orthostatic Hypotension
- Most likely due to medication history
- Will hold-hypertensive medications, resume as symptoms continue to improve
- Orthostatics much improved from before, still have around a 30 unit difference
- Continue monitoring blood pressure, will continue orthostatic vitals
- Holding off on IV fluids now
- PT OT eval
- Will start antihypertensive medication as per cardiology recommendations, starting with valsartan when able
- Continue midodrine 5 mg twice daily
# TUNDE most likely due to dehydration, medication side effect
- Resolved, creatinine has returned to baseline 1.0
- IV fluids stopped
- Continue monitoring BMP
# History of HFmrEF
- No acute exacerbation at this time, no lower extremity swelling or any chest congestion, previous echo showed ejection fraction of 40 to 45%
- Echocardiogram ordered by cardiology showed improved ejection fraction from before, now up to 50%, blood pressure medications to be adjusted
# Type 2 diabetes, with neuropathy
- On Lantus 34 units at home, has continuous glucose monitor
- Reviewed glucose readings, have been fairly normal at home
- Continue 27 units here
- Continue glucose monitoring
- Insulin sliding scale as needed, moderate scale
# History of atrial flutter status post cardioversion 05/22
- In normal sinus rhythm at this time
- Continue monitoring on telemetry
- Continue amiodarone
- Continue Eliquis 5 mg twice daily
# Multiple ulcers present on admission
# Left lower leg diabetic draining wound, POA
# Right arm scabbed wound with mild drainage, POA
# Stage III pressure ulcer on the sacrum, POA
# Bilateral Buttocks Pressure Injury Stage 2, POA
- Wound care consulted, input appreciated
- Continue management of wounds as directed
#Diabetic Neuropathy affecting bilateral upper and lower extremities
- Will continue Gabapentin
- Patient straight caths himself at home, continue bladder scan with straight cath
Full code
DVT prophylaxis: Eliquis
Anticipated Discharge: Within 24 hours
Subjective/Interval History
-
Date of Service: June 06, 2025
Patient continues to feel better, says that he still has some drop in blood pressure while getting up and standing but he is feeling a lot less dizzy. Reports no symptoms from this drop in blood pressure. Overall feeling much improved.
Objective Data
-
Labs:
Laboratory Results
06/06/25
06:38
WBC 8.6
Hgb 14.2
Hct 44.4
Plt Count 224
Sodium 136
Potassium 4.8
Chloride 103
Carbon Dioxide 29
BUN 21 H
Creatinine 1.0
Glucose 122 H
Calcium 9.2
Total Bilirubin 0.7
AST 22
ALT 20
Alkaline Phosphatase 79
Vital Signs:
Vital Signs
Temp Pulse Resp BP Pulse Ox
98.3 F 66 18 141/63 93
06/06/25 03:08 06/06/25 03:08 06/06/25 03:08 06/06/25 03:08 06/06/25 03:08
I&O
06/05/25 06/06/25 06/07/25
06:59 06:59 06:59
Intake Total 2099 / 2099 1130 / 1130
Output Total 1575 / 1575 1495 / 1495
Balance 525 / 525 -365 / -365
Review of Systems
-
History Source: Patient
Constitutional: Reports No Symptoms
EENT: Reports No Symptoms Reported
Respiratory: Reports No Symptoms
Cardiac: Reports No Symptoms
Abdomen/GI: Reports No Symptoms
Genitourinary: Reports No Symptoms
Musculoskeletal: Reports No Symptoms
Skin: Reports No Symptoms
Neuro: Reports No Symptoms
Endocrine: Reports No Symptoms
Hematologic / Lymphatic: Reports No Symptoms
Physical Exam
-
General: Well Developed, Well Nourished, No Apparent Distress, Comfortable and Conversant
HEENT: Normocephalic and Atraumatic
Respiratory: Clear to Auscultation and Non Labored Respirations
Cardiac: Regular Rhythm and S1/S2
GI: Soft, Nontender, Nondistended and Normal Bowel Sounds
Genito-urinary: No Costovertebral Tender
Musculoskeletal: No Clubbing, No Cyanosis, No Edema and Other (Left lower ankle wrapped, had stockings on, no swelling noted on both legs)
Skin: Warm and Decubitus Ulcers (Right arm abrasions, sacral decubitus ulcer, and left lower extremity ankle stage I ulcer, all covered with dressing, will continue to monitor)
Neuro: Awake, Alert, Oriented, AO x 3, No Motor Deficits and No Sensory Deficits
Psych: Calm
Data Reviewed
-
Labs: Labs Reviewed by me, Discussed with Physician and Discussed with Patient
[2025-06-06 08:12] LABS: Glucose - Point of Care 130 mg/dl (70-99)
[2025-06-06] MEDS: NOVOLOG FLEXPEN-MODERATE RESISTANCE SC ×3 (09:28→18:04)
[2025-06-06] MEDS: VITAMIN D3 (cholecalciferol) 25 MCG PO (09:29)
[2025-06-06] MEDS: ELIQUIS 5 MG PO ×2 (09:29→19:49)
[2025-06-06] MEDS: NEURONTIN 200 MG PO (09:29)
[2025-06-06] MEDS: DESENEX/MITRAZOL/ZEASORB 1 APPLIC TOPICAL ×2 (09:30→20:04)
[2025-06-06] MEDS: HYDROPHOR 1 APPLIC TOPICAL (09:31)
--- NOTE | 2025-06-06 11:20 | W.PN.CARDCBS ---
Addendum entered and electronically signed by Halie Pineda DO 06/06/25 18:16:
I saw and examined the patient.
The Chiropractic Physician's note was reviewed and I agree with the note.
Comment: Patient seen and examined. Chart reviewed. Overall states that he is feeling better and was able to stand today without dizziness. His is also hospitalized on the same floor and states they are exploring skilled rehab facilities
for discharge.
GEN: No distress, awake, Ox3, RA
HEENT:mmm
LUNGS: CTA, no wheezes/rales
CV: Reg, S1/S2, no murmur, rub or gallop
ABD: soft, BS+, NT/ND
EXT: No edema, wearing Tubigrip compression stockings
Plan:
Symptomatic orthostatic hypotension likely multifactorial with multiple antihypertensive medications on admission in addition to autonomic dysfunction/diabetic neuropathy
-Antihypertensive therapy is now held with improved orthostasis
-Continue midodrine
-Continue the use of abdominal binder and compression stockings
-Discussed the importance of glycemic control. Hemoglobin A1c in March was 7.1%. He uses the [employer] [facility] and is managed by his primary care physician
Acute kidney insufficiency likely secondary to dehydration/hypotension
-Renal function has improved following IV fluids and holding antihypertensive therapy including Entresto, Aldactone and Lasix
History of recovered CM EF 40-45% now 50%.
-Echo Jun 04 2025: EF 50% with mild MR
-Weight is down 12 lbs since he was discharged in March. Appears dry.
-Given his EF has recovered would hold off on resuming Entresto, Aldactone and Lasix due to ongoing orthostasis. May consider beta luna as outpt
Paroxysmal atrial fibrillation, s/p DCCV 05/22/25
-He remains in sinus.
-Continue amiodarone 200 mg daily
-Continue anticoagulation With Eliquis 5 mg twice daily
History of recovered CM EF 40-45% now 50%.
-Appears euvolemic
-Echo Jun 04 2025: EF 50% with mild MR
-Given orthostasis will not resume prehospital medications at this time but can reassess as an outpatient ( metoprolol succinate 12.5 mg daily, Entresto, spironolactone and Lasix.)
-Will follow volume status closely
Will arrange for outpatient cardiac follow-up
Discharge planning and PT per primary
Will sign off, recall if needed
Original Note:
Today's Communication / Plan
-
Repeat orthostatic vitals
Continue Midodrine
hold off on resuming Toprol, Entresto, Aldactone and Lasix
Continue Amio
Impression / Plan
-
.
PCP: Dr. Giles
Welding Technician: Dr. Tyson
Impression:
Presented with dizziness and fall
Orthostasis
Hypotension
Bradycardia
Acute renal failure
PAFlutter
s/p CHRISTINA/cv May 22 2025 remains sinus
DM-2 with neuropathy
Chronic HFrEF
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
Chronic LE edema, lymphedema
Hx colon cancer with prior colon resection
Hyponatremia
Hypertension
Hyperlipidemia
Chronic back pain
Echo Jun 04, 2025: EF 50% with mild MR
Plan:
Presented with dizziness and fall. He was found to be hypotension, bradycardia and orthostasis.
-Noted to have TUNDE on admission (creat1.4), likely dehydration. Creat improved 1.0 to baseline with volume resuscitation
-Orthostatics positive on 06/05 on Midodrine (new this admission). Dose increased to 5 mg TID. Would repeat orthostatic vitals
- BP meds have been held including including beta-luna, Entresto, Aldactone and Lasix.
- He was only taking Lasix as needed prior to admission. He may have been taking additional medications (lisinopril plus Entresto by accident [employer]PECTING). Medication compliance was discussed.
- Continue Tubigrip compression stockings
History of recovered CM EF 40-45% now 50%.
-Echo Jun 04 2025: EF 50% with mild MR
-Weight is down 12 lbs since he was discharged in March. Appears dry.
-Given his EF has recovered would hold off on resuming Entresto, Aldactone and Lasix due to ongoing orthostasis. May consider beta luna as outpt
Paroxysmal atrial fibrillation, s/p CV 05/22/25
-He remains in sinus.
-Continue anticoagulation and Amiodarone
HPI: Andres Giron is a 79M with a PMHx of PMHx HTN, HLD, NIDDM, HFrEF, peripheral neuropathy, and atrial flutter with recent successful cardioversion, and currently anticoagulated on Eliquis, who presented s/p fall yesterday morning and was found to
hypotensive, mildly bradycardic and orthostatic in the ED. Patient has presented a list of medications that he believes he is supposed to be taking, but the list is in contradiction to some medical records as reviewed on [facility] and [facility].
Progress Note - Welding Technician
Subjective
Date of Service: June 06, 2025
Patient seen and examined. Patient resting comfortably in bed. Patient still complaining of feeling mildly dizzy with positional change, still orthostatic
Objective
Labs:
06/06/25 06:38
06/06/25 06:38
Labs
Hgb 14.2 g/dL (13.0-18.0) 06/06/25 06:38
Hct 44.4 % (39.0-52.0) 06/06/25 06:38
Plt Count 224 10^3/uL (130-400) 06/06/25 06:38
Sodium 136 mmol/L (135-145) 06/06/25 06:38
Potassium 4.8 mmol/L (3.5-5.1) 06/06/25 06:38
BUN 21 mg/dl (9-20) H 06/06/25 06:38
Creatinine 1.0 mg/dL (0.7-1.3) 06/06/25 06:38
Glucose 122 mg/dl (70-99) H 06/06/25 06:38
Vital Signs and I&O:
Vital Signs
Temp Pulse Resp BP Pulse Ox
97.8 F 62 18 139/65 94
06/06/25 07:55 06/06/25 09:29 06/06/25 07:55 06/06/25 09:29 06/06/25 07:55
Vital Signs
Temp Pulse Resp BP Pulse Ox
97.8 F 62 18 139/65 94
06/06/25 07:55 06/06/25 09:29 06/06/25 07:55 06/06/25 09:29 06/06/25 07:55
Intake & Output
06/04/25 06/05/25 06/06/25 06/07/25
06:59 06:59 06:59 06:59
Intake Total 840 / 840 2100 / 2100 1130 / 1130
Output Total 400 / 400 1575 / 1575 1495 / 1495
Balance 440 / 440 525 / 525 -365 / -365
Physical Exam
Physical Exam
GEN: No distress, awake, Ox3, sitting in bed
HEENT: supple, anicteric, mmm
LUNGS: CTA, no wheezes/rales
CV: Reg, S1/S2, no murmur, rub or gallop
ABD: soft, BS+, NT/ND
EXT: No edema, clubbing or cyanosis, wearing Tubigrip compression stockings
NEURO: Gross non-focal
SKIN: No rash, warm, dry,, pink. Right upper extremity wrapped, lower extremities with several areas covered with Aquacel bandage
[2025-06-06 11:22] LABS: Glucose - Point of Care 135 mg/dl (70-99)
[2025-06-06] MEDS: PACERONE 200 MG PO (12:37)
--- NOTE | 2025-06-06 15:22 | CM ---
Reviewed the chart notes and spoke with the patient at the bedside. Patient still not interested in SNF. Patient will not have support in home until tomorrow. CM continues to be available to patient/family and is monitoring medical plan for needs
at discharge.
Plan: Discharge to home with [facility]; referral placed in [facility]. Patient's daughter will provide transportation home.
[facility] [place]
[2025-06-06 17:40] LABS: Glucose - Point of Care 129 mg/dl (70-99)
[2025-06-06 21:47] LABS: Glucose - Point of Care 156 mg/dl (70-99)
[2025-06-06] MEDS: LANTUS 0.27 UNITS SC (21:50)
[2025-06-06] MEDS: LIPITOR 10 MG PO (21:51)
[2025-06-06] MEDS: NEURONTIN 300 MG PO (21:51)
[2025-06-06] MEDS: MOBIC 15 MG PO (21:51)
[2025-06-07 03:11] VITALS: BP 148/64
[2025-06-07 07:44] VITALS: BP 143/73
[2025-06-07 08:00] VITALS: BMI 30.3
[2025-06-07 08:26] LABS: Glucose - Point of Care 127 mg/dl (70-99)
[2025-06-07] MEDS: NEURONTIN 200 MG PO (10:29)
[2025-06-07] MEDS: NOVOLOG FLEXPEN-MODERATE RESISTANCE SC ×2 (10:29→12:49)
[2025-06-07] MEDS: ELIQUIS 5 MG PO (10:30)
[2025-06-07] MEDS: VITAMIN D3 (cholecalciferol) 25 MCG PO (10:30)
[2025-06-07] MEDS: HYDROPHOR 1 APPLIC TOPICAL (10:31)
[2025-06-07] MEDS: DESENEX/MITRAZOL/ZEASORB 1 APPLIC TOPICAL (10:31)
--- NOTE | 2025-06-07 11:34 | W.PN.UPDATE ---
Update Note
Progress Note Update
Orthostatic hypotension which is likely secondary to multiple antihypertensive use versus diabetic neuropathy causing autonomic dysfunction or could be multifactorial being related to both as stated above.
-Orthostatics remain positive however his symptomatology has resolved. No further dizziness.
- Continue to hold antihypertensives
- Resume beta-luna as tolerated
- Monitor on telemetry
- Abdominal binder compression stockings
- Started midodrine low dose
- Cleared by cardiology for discharge home
- Outpatient cardiology follow-up
- Once discharge with fall precautions
- Maintain fall precautions
TUNDE, resolved
[2025-06-07 11:50] VITALS: BP 146/65
[2025-06-07 12:12] LABS: Glucose - Point of Care 140 mg/dl (70-99)
[2025-06-07] MEDS: PACERONE 200 MG PO (13:29)
--- NOTE | 2025-06-07 15:06 | CM ---
DC today with [facility].
IMM on chart. No new dc needs identified.
--- NOTE | 2025-06-07 16:08 | W.PN.HOSP.TC ---
Addendum entered and electronically signed by Charlie Meneses MD 06/07/25 17:20:
please see update note
Original Note:
Today's Communication/Plan
-
DC today, home with home care
Assessment / Plan
Assessment / Plan
79-year-old male with past medical history of type 2 diabetes with diabetic neuropathy, chronic heart failure with reduced ejection fraction, hypertension, and recent history of atrial flutter status post cardioversion 05/22 who presents with
orthostatic hypotension and dizziness causing fall.
Dizziness and fall:
Orthostatic hypotension:
- Likely secondary to medication side effect. Received 2.5L bolus IVF
- EKG with sinus bradycardia.
-Telemetry
- All home antihypertensives held for orthostasis
- Pt still orthostatic, although mildly improved
- Midodrine started. Continue on DC
- DC today with home health
TUNDE:
- Improved wth IVF and holding BP meds
Paroxysmal A-fib:
s/p cardioversion
-Continue amiodarone 200 daily
- Continue Eliquis
- Telemetry
HFmrEF:
Prior EF 40% to 45%, repeat echo with EF 50%
- Not in acute exacerbation.
- Hold metoprolol for now pending appointment with cardiology outpatient
- Telemetry
# Multiple ulcers present on admission
# Left lower leg diabetic draining wound, POA
# Right arm scabbed wound with mild drainage, POA
# Stage III pressure ulcer on the sacrum, POA
# Bilateral Buttocks Pressure Injury Stage 2, POA
- Wound care consulted, input appreciated
- Continue management of wounds as directed
#Diabetic Neuropathy affecting bilateral upper and lower extremities
- Will continue Gabapentin
- Patient straight caths himself at home, continue bladder scan with straight cath
CODE STATUS: Full code
DVT prophylaxis: Eliquis
Anticipated Discharge: Today
Subjective/Interval History
-
Date of Service: June 07, 2025
No complaints. Feels well. Looks forward to discharge
Objective Data
-
Vital Signs:
Vital Signs
Temp Pulse Resp BP Pulse Ox
97.7 F 64 18 146/65 97
06/07/25 11:50 06/07/25 13:29 06/07/25 11:50 06/07/25 13:29 06/07/25 11:50
I&O
06/06/25 06/07/25 06/08/25
06:59 06:59 06:59
Intake Total 1130 / 1130 720 / 720
Output Total 1495 / 1495 600 / 600
Balance -365 / -365 120 / 120
Review of Systems
-
History Source: Patient
Respiratory: Denies Trouble Breathing
Cardiac: Denies Chest Pain, Palpitations, Syncope or Orthopnea
Abdomen/GI: Denies Abdominal Pain, Nausea or Vomiting
Neuro: Denies Dizzy or Lightheadedness
Physical Exam
-
General: Well Developed, Well Nourished, No Apparent Distress and Comfortable
HEENT: Normocephalic, Atraumatic and Moist Mucous Membranes
Respiratory: Clear to Auscultation and Non Labored Respirations; Negative Wheezes, Rales, Rhonchi or Crackles
Cardiac: Regular Rhythm and S1/S2; Negative Murmur, Rub or Calf Tenderness
GI: Soft, Nontender, Nondistended and Normal Bowel Sounds
Musculoskeletal: No Clubbing, No Cyanosis and No Edema
Skin: Warm and Dry
Neuro: Awake, Alert and Oriented
Psych: Calm
--- NOTE | 2025-06-07 18:28 | W.DCSUMMARY ---
Discharge Summary
Discharge Data
Date of Admission: 06/03/25
Date of Discharge: 06/07/25
-
Pending Results: No
Hospital Course
Discharging Physician : Dr. Charlie Meneses, Dr. Stephie Jacinto
Disposition : Home with VN
Primary care physician : Dr. Mukund Giles
Principal Discharge diagnosis :
Orthostatic Hypotension
TUNDE
HFmrEF
Chronic Discharge diagnosis :
Type 2 Diabetes requiring Insulin with neuropathy
History of atrial flutter status post cardioversion 05/22
Multiple ulcers present on admission
Left lower leg diabetic draining wound, POA
Right arm scabbed wound with mild drainage, POA
Stage III pressure ulcer on the sacrum, POA
Bilateral Buttocks Pressure Injury Stage 2, POA
Hospital Course :
79-year-old male with past medical history of type 2 diabetes with diabetic neuropathy, chronic heart failure with reduced ejection fraction, hypertension, and recent history of atrial flutter status post cardioversion 05/22 came to the ED due to
recent history of dizziness. He was found to have marked orthostatic hypotension while in the ED, was started on fluids (given two boluses of normal saline 500 mL each). Found to have mild TUNDE with creatinine increased to 1.4. EKG showed no signs
of atrial flutter, still in normal sinus however a bit of bradycardia. Following discussion with patient, he had been taking all the medications on his list, even those that were discontinued at last hospital visit. Seems he was taking both
lisinopril and Entresto at the same time. Cardiology was consulted, blood pressure medications were held, awaiting improvement of volume status and will resume as per discussion with cardiology. Patient continued to have orthostatic hypotension,
even after IV fluids and midodrine supplementation. His TUNDE improved following IVF and he underwent echocardiogram which showed improvement in his ejection fraction from previous echo few months back. His dizziness much improved and was able to
ambulate around the floor. Patient was found to have multiple ulcers that were present on arrival. Wound care was consulted who helped manage the ulcers, and he was given instructions regarding ulcer management at home as well. He was evaluated by
PT/OT who both recommended SNF vs Home with VN. Patient preferred to go home and will be discharged home with VN as per his wishes.
Important imaging findings :
Head CT: No acute intracranial abnormality noted.
Mild atrophy. Stable
Procedure findings :
Echocardiogram:
1. Normal left ventricular size, wall thickness and systolic function. No regional wall motion abnormalities are seen.
2. Compared to a prior transthoracic echocardiogram study from which was reviewed Ejection fraction has improved from 40-45% to 50%. Sinus rhythm has replaced atrial flutter.
Discharge Plan
-
Patient Disposition: Home (Routine Discharge)
Discharge Diagnosis/Procedures: Orthostatic Hypotension
TUNDE
HFmrEF
Type 2 Diabetes requiring Insulin with neuropathy
History of atrial flutter status post cardioversion 05/22
Multiple ulcers present on admission
Left lower leg diabetic draining wound, POA
Right arm scabbed wound with mild drainage, POA
Stage III pressure ulcer on the sacrum, POA
Bilateral Buttocks Pressure Injury Stage 2, POA
Diet: Diabetic, Carb Controlled
Activity: As tolerated
Driving Restrictions: As prior to admission
Bathing Restrictions: None
Other Services: VN
Activity Restrictions/Additional Instructions:
Wound Care Instructions
R arm: clean with soap and water or saline, adaptic and dry dressing, change q 2 days and prn drainage.
knees: clean with soap and water or saline, silicone foam change q 2 days and prn drainage.
L LEG: clean with saline, adaptic and silicone foam change q 2 days and prn drainage.
Sacrum/Buttocks- Clean with saline, apply Calazime and silicone foam and change Q 48 hours and PRN.
Tubigrip size G knee high both legs
Apply mineral oil to legs and feet daily.
Follow up at wound care center call for an appointment.
Referrals:
Renato Giles MD [Family Provider, Internal Medicine] - in less than 1 week
Referral Note: Follow up with your PCP within 1 week
Lana Sterling CRNP [Specified Professional Personl, Cardiology] - 07/15/25 1:20 pm
Referral Note: You have cardiology follow up with YASMIN Allen on July 15 at 1:20 pm in [address] in the [place]. If you are unable to make this appointment please call [phone].
Additional Discharge Medication Instructions: Please follow up with Cardiology at the scheduled appointment on 07/15/2025 1:20pm
Please discontinue all hypertension medications including Metoprolol, Lisinopril, lasix, Spironolactone, Entresto.
Please continue Amiodarone
Follow up with your primary care doctor shortly.
Prescriptions:
New
midodrine 2.5 mg Tablet
5 mg PO BID@0800,1800 15 Days Qty: 60 0RF
Aquaphor Healing 41 % Ointment
1 applic topical DAILY Qty: 0 0RF
Continued
repaglinide 2 MG tablet
2 mg PO AC
atorvastatin 10 MG tablet
10 mg PO HS
calcium carbonate [Oyster Shell Calcium 500] 500 MG tablet
500 mg PO BID
docusate sodium 100 MG capsule
300 mg PO HS
fluticasone propionate 50 mcg/actuation [place],Suspension
2 spray INTRANASAL DAILYPRN PRN (Reason: congestion)
dqlcmovuroif-mntorfck-hdkodf Tablet
1 tab PO DAILY
cholecalciferol (vitamin D3) 25 mcg (1,000 unit) Tablet
25 mcg PO DAILY
Trulicity 3 mg/0.5 mL Pen Injector
3 mg SC SA
Fish Oil capsule
850 mg PO DAILY PRN (Reason: SUPPLEMENT)
Eliquis 5 mg Tablet
5 mg PO BID Qty: 60 11RF
meloxicam 15 mg tablet
15 mg PO HS
pseudoephedrine HCl 120 mg tablet extended release
120 mg PO BIDPRN PRN (Reason: congestion)
gabapentin 300 mg capsule
300 mg PO HS
gabapentin 100 mg capsule
200 mg PO DAILY
glucosamine-chondroitin 250-200 mg Tablet
3 tab PO DAILY@1200
Januvia 100 mg Tablet
100 mg PO HS
insulin glargine U-300 conc [Toujeo Max U-300 SoloStar] 300 unit/mL (3 mL) insulin pen
34 unit SC HS
amiodarone 200 mg tablet
200 mg PO DAILY@1200
Discontinued
Slow-Mag 71.5 mg Tablet,Delayed Release (Dr/Ec)
64 mg PO MEALS Qty: 0
dapagliflozin propanediol 10 mg Tablet
10 mg PO DAILY Qty: 30 11RF
Patient Comments:
on hold
sacubitril-valsartan [Entresto] 24-26 mg Tablet
1 tab PO BID Qty: 60 11RF
spironolactone 25 mg Tablet
12.5 mg PO DAILY Qty: 30 11RF
lisinopril 5 mg tablet
5 mg PO .DAILY-SEE BELOW
Rx Instructions:
should be stopped with entresto
metoprolol succinate 25 mg tablet extended release 24 hr
12.5 mg PO HS
furosemide 40 mg tablet
40 mg PO DAILYPRN PRN (Reason: leg swelling)
metoprolol succinate 100 mg tablet extended release 24 hr
100 mg PO . DID NOT START
Discharge Orders:
Discharge Patient (As Directed); Ordered 06/07/25
Ordered By: Stephie Jacinto
Discharge Date and Time
Discharge Date/Time: 06/07/25 15:58
Print Language: BRAZILIAN
== END 2025-06-07 15:58 | disposition home health service (06) | DRG 682 ==
LOC: 2 NORTH 13:59
PROVIDERS: Student in an Organized Health Care Education/Training Program; ADMITTING PHYSICIAN Hospitalist; CONSULT PHYSICIAN Internal Medicine Cardiovascular Disease; EMERGENCY PHYSICIAN Emergency Medicine; FAMILY PHYSICIAN Internal Medicine
DX: N17.9 Acute kidney failure, unspecified (principal); L89.153 Pressure ulcer of sacral region, stage 3; I48.92 Unspecified atrial flutter; I50.22 Chronic systolic (congestive) heart failure; E87.1 Hypo-osmolality and hyponatremia; I95.1 Orthostatic hypotension; E11.42 Type 2 diabetes mellitus with diabetic polyneuropathy; I11.0 Hypertensive heart disease with heart failure; L89.322 Pressure ulcer of left buttock, stage 2; L89.312 Pressure ulcer of right buttock, stage 2; G90.9 Disorder of the autonomic nervous system, unspecified; R29.6 Repeated falls; E78.00 Pure hypercholesterolemia, unspecified; E86.0 Dehydration; S80.211A Abrasion, right knee, initial encounter; S80.212A Abrasion, left knee, initial encounter; S50.311A Abrasion of right elbow, initial encounter; W18.30XA Fall on same level, unspecified, initial encounter; Z79.01 Long term (current) use of anticoagulants; Z79.4 Long term (current) use of insulin; Z79.84 Long term (current) use of oral hypoglycemic drugs; Z79.899 Other long term (current) drug therapy
CPT/HCPCS: 70450; 80053; 82962; 85025; 85027; 86803; 93005; 93308; 93321; 93325; 94760; 96360; 96361; 97167; 97530; 99285

== ENCOUNTER → 2025-09-23 08:04 | Outpatient (REF) | payer MEDICARE, BC, SELFPAY ==
[2025-09-23 09:54] LABS: ALT (SGPT) 37 U/L (0-50); AST (SGOT) 33 U/L (17-59); Albumin 4.0 g/dl (3.5-5.0); Alkaline Phosphatase 104 U/L (38-126); Glucose 161 mg/dl (70-99); HDL Cholesterol 61 mg/dl; LDL Cholesterol, Calculated 73 mg/dl; Total Protein 7.1 g/dl (6.3-8.2); Very Low Density Lipoprotein 30 mg/dl (0-30)
[2025-09-23 09:56] LABS: Glycohemoglobin (HgbA1c) 6.6 % (4.0-5.9)
== END ==
LOC: HWLAB 08:04
PROVIDERS: ATTENDING PHYSICIAN Internal Medicine
DX: E11.40 Type 2 diabetes mellitus with diabetic neuropathy, unspecified (principal); Z79.4 Long term (current) use of insulin; E66.9 Obesity, unspecified; I10 Essential (primary) hypertension
CPT/HCPCS: 36415; 80061; 80076; 82947; 83036